=== PATIENT | male | born 1955 | race Two or more races ===

== ENCOUNTER 2022-06-23 11:24 | Emergency (ER) | payer MEDICARE, MEDICAID, SELFPAY | END 2022-06-23 13:08 | disposition left against medical advice (07) | PROVIDERS: Emergency Provider Emergency Medicine; PCP Internal Medicine | DX: L98.9 Disorder of the skin and subcutaneous tissue, unspecified (principal) ==

== ENCOUNTER 2025-05-21 13:40 | Emergency (ER) | payer MEDICARE, MEDICAID, SELFPAY ==
--- NOTE | 2025-05-21 13:43 | ED.GENADULT ---
HPI - General Adult General Chief complaint: Wound/Laceration Stated complaint: laceration Time Seen by Provider: 05/21/25 15:25 Source: patient Mode of arrival: ambulatory Limitations: no limitations History of Present Illness ED Provider: Nusrat Herrera PA-C HPI narrative: Patient is a 70 year old assigned male at with no reported medical history presenting to the emergency department today with a left forehead laceration. Patient states that he accidentally hit the left side of his head on the trim of a door. Patient denies any loss of consciousness. Patient states that he does not know when his last tetanus shot was. Patient states that he is not on any anti-coag medications. Patient denies any dizziness, lightheadedness, abdominal pain, nausea, vomiting, fever, chills, blurry vision, double vision, loss of vision, chest pain, difficulty breathing, shortness of breath, back pain, night sweats, pain with urination, increased urinary frequency, increased urinary urgency, blood in his urine or stool, syncope or a near syncopal episode, bowel incontinence, bladder incontinence, or any other complaints at this time. Relieving factors: none Exacerbating factors: none Associated symptoms: denies other symptoms Treatments prior to arrival: none Related Data Previous Rx's ?Medication ?Instructions ?Recorded amoxicillin 875 mg-potassium 1 tab PO BID 5 days #10 tabs 05/21/25 clavulanate 125 mg tablet Allergies Allergy/AdvReac Type Severity Reaction Status Date / Time No Known Allergies Allergy Verified 05/21/25 13:48 Review of Systems Constitutional: Constitutional: Reports no additional constitutional complaints, Denies chills, Denies fever(s) and Denies night sweats Eyes: Eyes: Reports no additional eye complaints, Denies blurry vision, Denies change in vision, Denies diplopia, Denies eye discharge, Denies loss of vision and Denies eye pain ENT: Denies dizziness Comments: left sided forehead laceration Cardiovascular: Cardiovascular: Reports no additional cardiovascular complaints, Denies chest pain, Denies lightheadedness, Denies Loss of Consciousness and Denies dyspnea Respiratory: Respiratory: Reports no additional respiratory complaints and Denies dyspnea Gastrointestinal: Gastrointestinal: Reports no additional gastrointestinal complaints, Denies abdominal pain, Denies melena, Denies hematochezia, Denies change in bowel habits and Denies change in stool character Genitourinary: Genitourinary: Reports no additional male genitourinary complaints, Denies hematuria, Denies oliguria, Denies difficulty urinating, Denies dysuria, Denies urinary frequency, Denies urinary hesitancy, Denies urinary incontinence and Denies urinary urgency Musculoskeletal: Musculoskeletal: Reports no additional musculoskeletal complaints, Denies numbness and Denies tingling Neurologic: Denies dizziness, Denies loss of vision, Denies numbness and Denies tingling Psychiatric: Psychiatric: Reports no additional psychiatric complaints Endocrine: Endocrine: Reports no additional endocrine complaints Hematologic/Lymphatic: Hematologic/Lymphatic: Reports no additional hematologic/lymphatic complaints Allergic/Immunologic: Allergic/Immunologic: Reports no additional allergic/immunologic complaints [facility] Past Medical History Attestation statement: The following information was validated with the patient. Source: old records reviewed and nursing notes reviewed Social History Social History Advance Directives: No Advance Directives Information Provided: Yes Do you have a plan to hurt others: No Plan Physical Exam ED Vital Signs: Vital Signs - 24 hr 05/21/25 13:44 05/21/25 16:04 05/21/25 16:17 Temperature 97.5 F 97.8 F 97.8 F Pulse Rate 97 78 78 Respiratory Rate 16 20 20 Blood Pressure 154/93 H 149/86 H 149/86 H Pulse Oximetry 96 100 100 Oxygen Delivery Method Room Air Room Air Room Air BMI result Body Mass Index 25.0 Const General: cooperative, no acute distress, alert and awake Nutritional Appearance: well nourished Orientation/consciousness: patient oriented x3 [facility] Other: Ears: hearing grossly normal bilaterally and external ears normal General nose exam: Normal external nose present, no nasal discharge noted and no epistaxis Mouth: Normal oral and palatal mucosa present, no drooling and no muffled voice Eyes General: appearance normal, both eyes and all related structures Periorbital: periorbital findings normal Eyelids: Yes eyelids normal Conjunctivae: conjunctivae normal Pupils: Equal, round and reactive pupils present EOM: EOMs intact bilaterally Neck Neck: Yes normal visual inspection, Yes full ROM and Yes no lymphadenopathy Resp Effort & Inspection: normal respiratory effort and able to speak in complete sentences Neuro General: patient oriented x3, moves all extremities and CN's II-XI intact bilaterally Cranial nerves: Yes Equal, round and reactive pupils present Cognition (Neuro): normal cognition Extrem General: Yes normal to inspection, Yes full ROM and Yes capillary refill normal Psych Appearance: grossly normal Mental Status: mental status grossly normal Affect: normal affect Attitude: cooperative Thought process: Normal thought process present Thought content: Normal thought content present Insight: Good insight present (Psych) Course Course Course Narrative: This is a rapid medical exam performed by Lance Washington NP: Additional HPI, ROS, PE not included below will be deferred to primary provider. Patient is a 70-year-old male presenting with laceration to left upper eyelid. Hit accidentally on door of bulkhead. Denies vision changes. No bony tenderness to orbit. Unsure last Tdap. Plan: Tdap, needs sutures Medications Administered Discontinued Medications Generic Name Dose Route Start Last Admin Trade Name Freq PRN Reason Stop Dose Admin Diphtheria/Tetanus/Acell Pertussis 0.5 ml 05/21/25 13:48 05/21/25 15:25 Diphth,Pertus(Acell),Tet Adult 0.5 Ml Syringe IM 05/21/25 13:49 0.5 ml .ONCE ONE Administration Lidocaine HCl 10 ml 05/21/25 15:27 05/21/25 16:06 Lidocaine Hcl 1 % Mpf 5 Ml Vial SUBCUT 05/21/25 15:28 10 ml ONCE ONE Administration Procedures Laceration Laceration 1: Site: face Side (If applicable): left Description: irregular Depth: simple, single layer Local Anesthetic: lidocaine 1% Amount of anesthesia used (mL): 5 Pre-repair: wound explored and deep structures intact Skin layer closed with: other (prolene) Size (cm): 6-0 Number of sutures: 4 Technique: simple, interrupted Medical Decision Making Medical Decision Making MDM Narrative: Patient is a 70 year old assigned male at with no reported medical history presenting to the emergency department today with a left forehead laceration. Patient's physical exam was as noted in the physical exam portion of this note. I explained my physical exam findings to the patient. I answered all questions asked by the patient. Patient's laceration was repaired, per procedure note, without incident. Patient was brought up to date on his tetanus status. I stressed the importance of the patient taking his medication as directed (either prescribed or as the over the counter packaging recommends). I stressed the importance of the patient following up with his primary care provider. I stressed the importance of the patient returning to the emergency department immediately if his symptoms were to worsen or if he were to develop any dizziness, shortness of breath, difficulty breathing, chest pain, blurry vision, loss of vision, nausea, vomiting, abdominal pain, fever, chills, back pain, or any other complaints. Patient verbalized agreement and understanding with this treatment plan and discharge. Differential Diagnosis Differential Diagnoses: The differential diagnosis associated with the presentation includes Left forehead laceration Admission/Observation Consideration of admission/observation: Escalation of care including admission/observation considered Patient would have been admitted to the hospital had his clinical presentation warranted hospital admission. Tests considered The following testing was considered but not selected: I considered obtaining a CT scan of the patient's head and c-spine however, the patient's current clinical presentation, mechanism of injury, and medical history did not warrant this. Prescription Management I considered prescription management with: Antibiotic (given patient's mechanism of injury - patient was started on a prophylactic antibiotic. ) Discharge Plan Discharge Clinical Impression: Laceration Patient Disposition: Home, Self-Care Instructions: Head Laceration (ED) Additional Instructions: Have your (4) sutures removed in 7-10 days. Do NOT soak the area. Avoid all public bodies of water such as [place], lakes, pools, ponds, oceans, etc. Perform daily wound checks and dressing changes. Quite las (4) suturas en 7 a 10 d?as. NO moje la carla. Evite todo cuerpo de agua p?blico, roland r?os, kristin, piscinas, estanques, oc?anos, etc. Revise la herida y cambie el ap?sito a diario. Follow up with your primary care provider. Return to the emergency department immediately if your symptoms worsen or if you develop any dizziness, shortness of breath, difficulty breathing, chest pain, blurry vision, loss of vision, nausea, vomiting, abdominal pain, fever, chills, back pain, or any other complaints. Shakila?seguimiento?con marshall m?dico de atenci?n primaria. Acuda inmediatamente al servicio de urgencias si viki s?ntomas empeoran o si presenta falta de aliento, dificultad para respirar, dolor tor?cico, mareos, aturdimiento, dolor de espalda, dolor abdominal, fiebre, escalofr?os o cualquier otro s?ntoma. Please see the information below about our Patient Portal. If you are not yet enrolled in the [facility] Patient Portal, you will receive an enrollment email invitation following your visit to any [facility] [place] care setting. You may also self-enroll in the Patient Portal by visiting our website: [email or web address] The following information is required to access the Patient Portal: - Your [facility] [place] Medical Record Number - Your personal home email address (must match what is in your electronic medical record, Registration staff can assist with this) - Name - Date of Capabilities of the Patient Portal: - Message some providers - View upcoming appointments - Access your health summary, medical history, and visit history - View current conditions and allergies - View procedure and lab results - View your medications, including guidelines, side effects, and precautions - Complete pre-appointment questionnaires requested by your provider - Ready summary reports of your office visits and procedures To access the Patient Portal Mobile Alfred, follow these directions: - Search [employer] in the Alfred Store or [employer] Store - Download the Alfred - Search for [facility] - Enter your login/password Portal del paciente Si usted no esta inscrito en el portal de pacientes de [facility], recibira vadim invitacion de inscripcion despues de marshall visita al [facility] [place] o al [facility] via correo electronico. Tambien puede inscribirse voluntariamente en el portal de pacientes visitando nuestra pagina web: [email or web address] La siguiente informacion sera requerida para acceder al portal: - Marshall trudy de historia medica de [facility] [place] - Marshall direccion de correo electronico personal - Nombre - Fecha de nacimiento Capacidades: Las siguientes capacidades estan disponibles en el portal de pacientes: - Enviar mensajes a algunos doctores - Verificar proximas citas - Acceso a marshall historial de dina, registro medico e historial de visitas - Gloria las condiciones actuales y alergias gloria procedimientos y resultados del laboratorio - Gloria viki medicamentos, incluyendo las pautas - Efectos secundarios y precauciones - Completar o llenar formularios / cuestionarios de - Citas solicitadas por marshall doctor - Leer los resumenes de reportes medicos de viki visitas y procedimientos [place] acceder a la aplicacion movil: - [employer] en la Alfred Store o [employer] Store - Descargue la aplicacion - [facility] - Ingrese marshall nombre de usuario / Contrasena Prescriptions: New amoxicillin-pot clavulanate 875-125 mg tablet 1 tab PO BID 5 Days Qty: 10 0RF Referrals: Enrique Diaz III, MD [Primary Care Provider, Medical] Interventions: ED Discharge Assessment Last Done: 05/21/25 16:17 Discharge Date/Time: 05/21/25 16:17 Print Language: Mongolian
[2025-05-21 13:44] VITALS: BP 154/93; PULSE 97; RESP 16; TEMP 36.4; O2SAT 96; BMI 25.0
--- NOTE | 2025-05-21 15:21 | PC.NURSE ---
Pt continues to actively bleed from lac over left eyebrow. Ambulates with steady gait. describes a sore neck but no point tenderness. no neuro deficits noted. denies thinners.
[2025-05-21] MEDS: Diphth,Pertus(ACell),Tet Adult 0.5 ML SYRINGE IM (15:25)
[2025-05-21 16:04] VITALS: BP 149/86; PULSE 78; RESP 20; TEMP 36.6; O2SAT 100
[2025-05-21] MEDS: Lidocaine HCl 1 % MPF 5 ML VIAL 10 ML SUBCUT (16:06)
[2025-05-21 16:17] VITALS: BP 149/86; PULSE 78; RESP 20; TEMP 36.6; O2SAT 100
== END 2025-05-21 16:17 | disposition home or self-care (01) ==
PROVIDERS: Emergency Provider Emergency Medicine; PCP Internal Medicine
DX: S01.81XA Laceration without foreign body of other part of head, initial encounter (principal); W26.9XXA Contact with unspecified sharp object(s), initial encounter; Y93.9 Activity, unspecified; Y92.9 Unspecified place or not applicable; Y99.8 Other external cause status; Z23 Encounter for immunization
CPT/HCPCS: 12011; 90471; 90715; 99282; 99284; J2003

== ENCOUNTER 2025-05-28 05:35 | Emergency (ER) | payer MEDICARE, MEDICAID, SELFPAY ==
[2025-05-28 05:37] VITALS: BP 144/85; PULSE 86; RESP 18; TEMP 36.4; O2SAT 97; BMI 27.4
--- OUTSIDE RECORDS SUMMARY | 2025-05-28 05:57 | XMS_ITS | Clinical Summary ---
Author Organization [address] Address [address] [place] [phone] Phone Care Team Providers Care Rn Sane Name Role Phone Enrique Diaz MD Primary Care Provider [phone] Allergies No known active allergies Medications butalbital-aceta minophen-caffein e-codeine [id number] mg capsule Take by mouth as needed. Active ciclopirox (PENLAC) 8 % solution APPLY TO AFFECTED NAIL DAILY. REMOVE WITH ALCOHOL EVERY 7 DAYS. APPLY FOR 8 WEEKS. 4 Active latanoprost (XALATAN) 0.005 % ophthalmic solution 1 Drop at bedtime. Active melatonin 10 mg tablet Take 5 mg by mouth every evening. 4 Active miconazole (MICATIN) 2 % cream Apply to affected area twice a day for 4 weeks. 2 Active sulindac (CLINORIL) 150 mg tablet TAKE 1 TABLET BY MOUTH TWICE A DAY 4 Active traZODone (DESYREL) 50 mg tablet TAKE 1 TABLET BY MOUTH EVERYDAY AT BEDTIME 4 Active zolpidem (AMBIEN) 10 mg tablet Take by mouth at bedtime as needed. Active hydrocortisone 2.5 % cream Apply 1 Application topically 2 (two) times a day. APPLY TO AFFECTED AREA 30 g 1 5 Active diclofenac (VOLTAREN) 1 % topical gel Apply 2 g topically 4 (four) times a day. 30 g 1 5 Active methocarbamoL (ROBAXIN) 500 mg tabletIndication s:Neck pain,Bilateral shoulder pain, unspecified chronicity Take 1 tablet (500 mg total) by mouth 3 (three) times a day. 40 tablet 5 Active lisinopriL (PRINIVIL,ZESTRI L) 30 mg tablet TAKE 1 TABLET BY MOUTH EVERY DAY 90 tablet 1 5 Active atorvastatin (LIPITOR) 40 mg tablet TAKE 1 TABLET BY MOUTH EVERY DAY 90 tablet 1 5 Active chlorthalidone (HYGROTON) 50 mg tablet TAKE 1 TABLET BY MOUTH EVERY DAY 90 tablet 1 5 Active ibuprofen (ADVIL,MOTRIN) 600 mg tablet Take 1 tablet (600 mg total) by mouth 3 (three) times a day if needed for mild pain. 30 tablet 5 Active acetaminophen (TYLENOL) 500 mg tablet Take 2 tablets (1,000 mg total) by mouth every 6 (six) hours if needed for mild pain. 60 tablet 5 Active triamcinolone (KENALOG) 0.1 % ointment Apply topically 2 (two) times a day. 30 g 3 5 Active Active Problems Problem Noted Date Diagnosed Date Insomnia 01/03/2022 Overview (10/17/2024): Follows with neurology (gentry) 6 mth basis. Tension headache 01/03/2022 Aortic stenosis 10/18/2021 Overview (10/17/2024): Follows with [facility] on a yearly basis. Diverticulosis 03/05/2021 Primary osteoarthritis of both hands 04/13/2018 Primary osteoarthritis of both knees 04/13/2018 Hyperlipidemia 10/24/2016 Venous stasis dermatitis 04/20/2014 Hypospadias 08/12/2013 HTN (hypertension) 03/09/2013 Varicose vein of leg 05/27/2012 BPH (benign prostatic hyperplasia) 12/10/2011 Overweight 02/07/2011 Abnormal brain MRI 03/19/2010 Overview (10/17/2024): Differential diagnosis includes demyelination process inflammatory or postinflammatory state atypical infarct or low-grade neoplasm Backache 04/18/2009 Overview (10/17/2024): IMO update Immunizations Name Administration Dates Next Due Influenza Quadravalent, MDCK , 0.5ml, with preservative (Flucelvax) 6mo and older 09/18/2017 Influenza trivalent, 0.5mL ( Fluad) 65yo and older 08/23/2024,09/09/2023,09/18/2022,07/27,09/26/2019 Influenza trivalent, 0.5mL, preservative free (Fluarix; FluLaval; Fluzone) ages 6mo and older (Afluria) 3 years and older 08/17/2015,08/17/2014,08/12/2013,07/31,11/01/2009,09/18/2007,10/25/2006 Moderna (age 6mo & older) Bi valent, COVID-19, 0.5 mL or 0.25 mL dosage 09/18/2022 Moderna SARS-CoV-2 COVID-19, mRNA, LNP-S, preservative free 09/09/2021,02/02/2021,01/05/2021 Pneumococcal conjugate 13 va lent (Prevnar 13, PCV13) 2mo and older 09/26/2019 Pneumococcal polysaccharide 23 valent (Pneumovax 23) 2yo and older 12/25/2020 Td Tetanus diptheria (Tdvax) 7yo and older 07/27/2020 Tdap Tetanus diptheria acell ular pertussis (Boostrix; Adacel) 7yo and older 06/26/2010 Zoster recombinant (Shingrix ) 19yo and older 05/27/2022 Surgical History Surgery Date Site/Laterality Comments COLONOSCOPY 08/28/2009 PROCEDURE: NM COLONOSCOPY FLX DX W/COLLJ SPEC WHEN PFRMD OTHER SURGICAL HISTORY Left PROCEDURE: NM LIGJ DIVJ & STRIPPING SHORT SAPHENOUS VEIN Medical History Medical History Date Comments 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 DX:Unspecified disorder of l ipoid metabolism Blood in stool 01/09/2006 DX:Blood in stoo l Hypertrophy of prostate with out urinary obstruction and other lower urinary tract symptoms (LUTS) 08/18/2006 DX:Hypertrophy of prosta te without urinary obstruction and other lower urinary tract symptoms (LUTS) Overweight(278.02) 02/07/2011 DX:Overweight (278.02) Unspecified glaucoma(365.9) DX:U nspecified glaucoma(365.9) HTN (hypertension) 03/09/2013 DX:HTN (hyper tension) Inguinal hernia DX:Inguinal cayetano ia; COMMENT: left Family History Medical History Relation Name Comments Other: at 55 abdominal ulcer Father no details No Known Problems Maternal Grandfather No Known Problems Maternal Grandmother Glaucoma Mother Other: at 99 Mother No Known Problems Paternal Grandfather No Known Problems Paternal Grandmother Relation Name Status Comments Father Maternal Grandfather Maternal Grandmother Mother Paternal Grandfather Paternal Grandmother Social History Tobacco Use Types Packs/Day Years Used Date Smoking Tobacco: Never Cigarettes Smokeless Tobacco: Never Tobacco Cessation:Counseling Given: Not Answered Alcohol Use Standard Drinks/Week Comments No 0 (1 standard drink = 0.6 oz pur e alcohol) Sex and Gender Information Value Date Recorded Sex Assigned at Not on file Legal Sex Male 10:46 PM EST Gender Identity Not on file Sexual Orientation Not on file Obstetrics History Last Filed Vital Signs Vital Sign Reading Time Taken Comments Blood Pressure 165/89 12/31/2024 5:55 AM EST Pulse 80 12/31/2024 5:55 AM EST Temperature 36.8 C (98.3 F) 12/31/2024 5:55 AM EST Respiratory Rate 17 12/31/2024 5:55 AM EST Oxygen Saturation 99% 12/31/2024 5:55 AM EST Inhaled Oxygen Concentration - - Weight 72.6 kg (160 lb) 12/31/2024 5:55 AM EST Height 167.6 cm (5' 6 ) 12/31/2024 5:55 AM EST Body Mass Index 25.82 12/31/2024 5:55 AM EST Plan of Treatment Upcoming Encounters Date Type Department Care Team (Late st Contact Info) Description 06/29/2025 1:15 PM EDT Office Visit Adult Medicine [address] [phone] Enrique Diaz MD [address] [place] [phone] Health Maintenance Due Date Last Done Comments Falls Risk Assessment 10/24/2022 Medicare Annual Wellness Visit 10/24/2022 Social Influencers of Health Screening 10/24/2022 COVID-19 Vaccine ( season) 2024 09/18/2022, 04/02/2022, 09/09/2021, Additional history exists Depression Screening 06/16/2025 06/16/2024 Influenza Vaccine (#1) 2025 , 09/09/2023, 09/18/2022, Additional history exists Hypertension/CHF/CAD Annual BMP Blood Test 12/19/2025 12/19/2024, 06/16/2024, 06/16/2024 RSV Immunization Adult Patients (1 - 1-dose 75+ series) 2028 Colorectal Cancer Screening: Colonoscopy 12/06/2029 12/06/2019 Cholesterol Screening (Lipid Panel) 12/19/2029 12/19/2024, 06/16/2024, 06/16/2024 DTaP,Tdap,and Td Vaccines (3 - Td or Tdap) 07/27/2030 07/27/2020, 06/26/2010 Hepatitis C Screening Completed 12/31/2013 Pneumococcal Vaccine: 50+ Years Completed 12/25/2020, 09/26/2019 Zoster Vaccines Completed 04/17/2023, 05/27/2022 HIB Vaccines Aged Out No longer eligi ble based on patient's age to complete this topic HPV Vaccines Aged Out No longer eligi ble based on patient's age to complete this topic Hepatitis A Vaccines Aged Out No long er eligible based on patient's age to complete this topic Hepatitis B Vaccines Aged Out No long er eligible based on patient's age to complete this topic IPV Vaccines Aged Out No longer eligi ble based on patient's age to complete this topic MMR Vaccines Aged Out No longer eligi ble based on patient's age to complete this topic Meningococcal ACWY Vaccine Aged Out N o longer eligible based on patient's age to complete this topic Meningococcal B Vaccine Aged Out No l onger eligible based on patient's age to complete this topic RSV Immunization Patients Under 20 months Aged Out No longer eligible based on patient's age to complete this topic Varicella Vaccines Aged Out No longer eligible based on patient's age to complete this topic Procedures Procedure Name Priority Date/Time Associated Diagnosis Comments COMPREHENSIVE METABOLIC PANEL Routine 12/19/2024 2:15 PM EST Primary hypertension Encounter for long-term (current) use of medications LIPID PANEL WITH REFLEX TO DIRECT LDL Routine 12/19/2024 2:15 PM EST Pure hypercholesterolemia DEPRESSION SCREENING Routine 06/16/2024 COLONOSCOPY Routine 12/06/2019 HEPATITIS C SCREENING Routine 12/31/2013 from Last 3 Months or Most Recently Relevant to Health Maintenance Results * (ABNORMAL) Lipid panel with reflex to direct LDL (12/19/2024 2:15 PM EST) Cholesterol 227(H) 0 - 200 mg/dL LAB CHEMISTRY METHOD 12/19/2024 6:03 PM [facility] Triglycerides 167(H) 0 - 150 mg/dL LAB CHEMISTRY METHOD 12/19/2024 6:03 PM [facility] HDL 47 >=40 mg/dL LAB CHEMISTRY METHOD 12/19/2024 6:03 PM [facility] LDL Calculated 147(H) 0 - 100 mg/dL LAB CHEMISTRY METHOD 12/19/2024 6:03 PM [facility] VLDL Cholesterol Fam 33.4 mg/dL LAB CHEMISTRY METHOD 12/19/2024 6:03 PM [facility] Non HDL Chol. (LDL+VLDL) 180(H) <145 mg/dL LAB CHEMISTRY METHOD 12/19/2024 6:03 PM [facility] Chol/HDL Ratio 4.8(H) 0.0 - 4.4 LAB CHEMISTRY METHOD 12/19/2024 6:03 PM [facility] Blood Venous blood specimen / Unknown Venipuncture / Unknown 12/19/2024 2:15 PM EST 12/19/2024 2:15 PM EST us Enrique Diaz MD LAB BLOOD ORDERABLES Final Resu lt [facility] [address] [place] [address], * Comprehensive metabolic panel (12/19/2024 2:15 PM EST) Sodium 133 133 - 145 mmol/L LAB CHEMISTRY METHOD 12/19/2024 6:03 PM [facility] Potassium 3.8 3.5 - 5.5 mmol/L LAB CHEMISTRY METHOD 12/19/2024 6:03 PM [facility] Chloride 96 96 - 110 mmol/L LAB CHEMISTRY METHOD 12/19/2024 6:03 PM [facility] CO2 31 21 - 32 mmol/L LAB CHEMISTRY METHOD 12/19/2024 6:03 PM [facility] Anion Gap 6 3 - 11 LAB CHEMISTRY METHOD 12/19/2024 6:03 PM [facility] Glucose 89 70 - 100 mg/dL LAB CHEMISTRY METHOD 12/19/2024 6:03 PM [facility] BUN 19 5 - 25 mg/dL LAB CHEMISTRY METHOD 12/19/2024 6:03 PM [facility] Creatinine 1.15 0.70 - 1.30 mg/dL LAB CHEMISTRY METHOD 12/19/2024 6:03 PM [facility] eGFR 68 >=60 mL/min/1. 73m2 LAB CHEMISTRY METHOD 12/19/2024 6:03 PM [facility] Comment:Calculation based on the Chronic Kidney Disease Epidemiology Collaboration (CKD-EPI) equation refit without adjustment for race. BUN/Creatinine Ratio 16.5 LAB CHEMISTRY METHOD 12/19/2024 6:03 PM [facility] Calcium 10.0 8.5 - 10.5 mg/dL LAB CHEMISTRY METHOD 12/19/2024 6:03 PM [facility] AST (SGOT) 17 10 - 42 unit/L LAB CHEMISTRY METHOD 12/19/2024 6:03 PM [facility] ALT (SGPT) 20 10 - 60 unit/L LAB CHEMISTRY METHOD 12/19/2024 6:03 PM [facility] Alkaline Phosphatase 88 42 - 121 unit/L LAB CHEMISTRY METHOD 12/19/2024 6:03 PM [facility] Total Protein 7.4 6.0 - 8.0 g/dL LAB CHEMISTRY METHOD 12/19/2024 6:03 PM [facility] Albumin 4.2 3.2 - 5.0 g/dL LAB CHEMISTRY METHOD 12/19/2024 6:03 PM [facility] Total Bilirubin 0.4 0.0 - 1.4 mg/dL LAB CHEMISTRY METHOD 12/19/2024 6:03 PM [facility] Blood Venous blood specimen / Unknown Venipuncture / Unknown 12/19/2024 2:15 PM EST 12/19/2024 2:15 PM EST Enrique Diaz MD LAB BLOOD ORDERABLES Final Resu lt [facility] [address] [place] [address], * Depression Screening (06/16/2024) Depression Screening Abstracted Historical Provider HEALTH MAINTENANCE Final Result * Colonoscopy (12/06/2019) Colonoscopy Abstracted, no interpretation Anatomical Region Laterality Modality Other Historical Provider HEALTH MAINTENANCE Final Result * Hepatitis C Screening (12/31/2013) Hepatitis C Screening Abstracted us Historical Provider HEALTH MAINTENANCE Final Result from Last 3 Months or Most Recently Relevant to Health Maintenance Insurance MEDICAID - [place] MEDICARE Care Teams Rn Sane Relationship Specialty Start Date End Date Enrique Diaz MD [address] [place] [phone] PCP - General Internal Medicine 09/28/15
--- OUTSIDE RECORDS SUMMARY | 2025-05-28 05:57 | XMS_ITS | Encounter Summary ---
Author Organization [employer] [facility] Address [address] [place] [address] Care Team Providers Care Advanced Practice Provider Name Role Phone Unavailable Primary Care Provider Unavailabl e Encounter Details Date Type Department Care Team (Latest Contact Info) Description 05/16/2019 Abstract C CONVERSIONS Dental, Provider, DDS Social History Tobacco Use Types Packs/Day Years Used Date Smoking Tobacco: Never Assessed Sex and Gender Information Value Date Recorded Sex Assigned at Male 09/15/2022 10:20 AM EDT Legal Sex Male 10:20 AM EDT Gender Identity Male 09/15/2022 10:20 AM EDT Sexual Orientation Choose not to disclose 2021 10:20 AM EDT documented as of this encounter Plan of Treatment Not on file documented as of this encounter Visit Diagnoses Not on filedocumented in this encounter
--- OUTSIDE RECORDS SUMMARY | 2025-05-28 05:57 | XMS_ITS | Clinical Summary ---
Author Organization [facility] Address [address] [place] [address] Care Team Providers Care Bench Scientist Name Role Phone Enrique Diaz MD Primary Care Provider [phone] Allergies No known active allergies Medications Medication Sig Dispensed Refills Start Date End Date Status atorvastatin (LIPITOR) tablet 40 mg Take 40 mg by mouth daily. 0 Active clotrimazole (LOTRIMIN) 1 % cream Apply topically 2 (two) times a day. 0 Active clotrimazole-betame thasone (LOTRISONE) cream Apply topically 2 (two) times a day. 0 Active latanoprost (XALATAN) 0.005 % ophthalmic solution 1 drop every night at bedtime. 0 Active betamethasone acetate-betamethaso ne sodium phosphate (CELESTONE) 6 (3-3) MG/ML injection Inject into the muscle. 0 Active chlorthalidone (HYGROTON) 50 MG tablet Take 50 mg by mouth daily. 0 Active zolpidem (AMBIEN) 5 MG tablet Take 10 mg by mouth every night at bedtime as needed for sleep. 0 Active ibuprofen 200 MG tablet Take by mouth every 6 (six) hours as needed for pain. 0 Active pregabalin (LYRICA) 25 MG capsule TAKE 1 CAPSULE BY MOUTH THREE TIMES A DAY 90 capsule 0 05/20/2022 Active Family History Relation Name Status Comments Father faater dies at age 55 from abdominal ulcer Mother cataract taruno ma Social History Tobacco Use Types Packs/Day Years Used Date Smoking Tobacco: Never Smokeless Tobacco: Never Alcohol Use Standard Drinks/Week Comments Not Currently 0 (1 standard drink = 0.6 oz pur e alcohol) Sex and Gender Information Value Date Recorded Sex Assigned at Not on file Gender Identity Not on file Sexual Orientation Not on file Job Start Date Occupation Industry Not on file Not on file Not on file Last Filed Vital Signs Vital Sign Reading Time Taken Comments Blood Pressure 138/70 03/04/2022 9:55 AM EDT Pulse 75 03/04/2022 9:55 AM EDT Temperature 35.9 C (96.6 F) 03/04/2022 9:55 AM EDT Respiratory Rate - - Oxygen Saturation 98% 03/04/2022 9:55 AM EDT Inhaled Oxygen Concentration - - Weight 73.5 kg (162 lb) 02/28/2022 3:14 PM EDT Height 162.6 cm (5' 4 ) 02/28/2022 3:14 PM EDT Body Mass Index 27.81 02/28/2022 3:14 PM EDT Plan of Treatment Health Maintenance Due Date Last Done Comments Hepatitis C Screening 1953 Depression Screening 1965 Preventative Health Evaluation 1971 Colon Cancer Screening (Colonoscopy) 1998 Shingrix-Zoster Vaccine (1 of 2) 2003 Fall Risk Assessment 2018 DTap / Tdap / Td (2 - Td or Tdap) 06/26/2020 06/26/2010 COVID-19 Vaccine ( season) 2024 09/09/2021, 02/02/2021, 01/05/2021 Influenza Vaccine (#1) 2025 , 09/26/2019, 09/18/2017, Additional history exists RSV Adult > 60+ Yrs or (1 - 1-dose 75+ series) 2028 Pneumococcal Vaccine Completed 12/25/2020, 09/26/20 19 Hepatitis B Vaccines Aged Out No long er eligible based on patient's age to complete this topic RSV Ped < 20 months Aged Out No longe r eligible based on patient's age to complete this topic Care Teams Bench Scientist Relationship Specialty Start Date End Date Enrique Diaz MD PCP - General Internal Medicine 01/29/22
--- OUTSIDE RECORDS SUMMARY | 2025-05-28 05:57 | XMS_ITS ---
Author Name [facility] Organization Unknown Encounters Encounter Type Encounter Reason Primary Diagnosis Location Date Ambulatory [facility] 08/26/2024 Care Team Organization Name Specialty Phone Email Start Date End Da te [facility] 2024
--- NOTE | 2025-05-28 06:38 | PC.NURSE ---
Patient reports he is here for sutures removal from the left upper eye lid. 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 Patient denies any pain at present. Patient oriented to ED room, call ramirez placed within patient's reach.
--- NOTE | 2025-05-28 08:04 | ED.GENADULT ---
HPI - General Adult General Chief complaint: General Medical Stated complaint: needs sutures removed Time Seen by Provider: 05/28/25 07:58 Source: patient, RN notes reviewed and diplomatic interpreter Mode of arrival: ambulatory Limitations: language barrier History of Present Illness ED Provider: Meg Fuentes PA-C [facility] narrative: This is a 70-year-old male who presents emergency department for suture removal. Patient was seen here on May 21, 2025 after accidentally lacerating above his left eye. He states that he tolerated the sutures well without any complications or concerns. He took the antibiotics as prescribed, finish the entire course. No drainage. No fevers or chills. No other complaints or concerns at this time. MD complaint: Suture removal Relieving factors: none Exacerbating factors: none Associated symptoms: denies other symptoms Treatments prior to arrival: none Related Data Previous Rx's ?Medication ?Instructions ?Recorded amoxicillin 875 mg-potassium 1 tab PO BID 5 days #10 tabs 05/21/25 clavulanate 125 mg tablet Allergies Allergy/AdvReac Type Severity Reaction Status Date / Time No Known Allergies Allergy Verified 05/28/25 05:38 Review of Systems Review of Systems: Yes all other systems are reviewed and are negative Constitutional: Constitutional: Reports as per [facility] Social History Social History Alcohol intake: former Smoked in Last 30 Days: No Use of substances other than those prescribed or required for medical reasons: No Advance Directives: No Advance Directives Information Provided: Yes Do you have a plan to hurt others: No Plan Physical Exam ED Vital Signs: Vital Signs - 24 hr 05/28/25 05:37 05/28/25 08:41 Temperature 97.6 F 97.6 F Pulse Rate 86 86 Respiratory Rate 18 18 Blood Pressure 144/85 H 144/85 H Pulse Oximetry 97 97 Oxygen Delivery Method Room Air Room Air BMI result Body Mass Index 27.4 Const Other: General: Awake, alert, and oriented X3. No acute distress. HEENT: Normal inspection CVS: Normal heart rate and rhythm. Pulses normal. Respiratory: No respiratory distress Skin: Left upper eye brow with well-healed laceration, [address], no evidence of wound dehiscence, drainage or surrounding erythema. Extremities: Normal to inspection Neuro: Oriented X 3. No motor deficit. No sensory deficit. Medical Decision Making Medical Decision Making [facility] Narrative: This is a 70-year-old male who presents emergency department for suture removal. On arrival, patient's blood pressure elevated at 140 4/85, all other vital signs within normal limits. He is speaking in full sentences under no acute distress. No evidence of wound dehiscence or cellulitis. Four sutures were removed successfully, no complications or concerns. Given wound care instructions, patient stable for discharge Differential Diagnosis Differential Diagnoses: The differential diagnosis associated with the presentation includes Suture removal, wound dehiscence, cellulitis, wound check Discharge Plan Discharge Clinical Impression: Visit for suture removal Patient Disposition: Home, Self-Care Instructions: Stitches Removal (ED) Additional Instructions: You were seen in the emergency department for a suture removal. You had 4 sutures removed successfully without any complications or concerns. Please keep area clean and dry, do not pick at wound, watch for any signs of infection including but not limited to redness, fevers, drainage. If any of these occur, please return. You may wash gently with warm soap and water. Prescriptions: No Action amoxicillin-pot clavulanate 875-125 mg tablet 1 tab PO BID 5 Days Qty: 10 0RF Interventions: ED Discharge Assessment Last Done: 05/28/25 08:41 Print Language: Swazi
[2025-05-28 08:41] VITALS: BP 144/85; PULSE 86; RESP 18; TEMP 36.4; O2SAT 97
== END 2025-05-28 08:43 | disposition home or self-care (01) ==
PROVIDERS: Emergency Provider Emergency Medicine
DX: Z48.02 Encounter for removal of sutures (principal)
CPT/HCPCS: 99284

== ENCOUNTER 2025-06-12 11:03 | Emergency (ER) | payer MEDICARE, MEDICAID, SELFPAY ==
--- NOTE | ~2025-06-12 | XR_ITS ---
EXAMINATION: XR FINGER, LEFT CLINICAL INFORMATION: laceration distal 2nd finger COMPARISON: None available. TECHNIQUE: AP hand and oblique and lateral views of the left hand second digit. FINDINGS: There is soft tissue swelling involving the distal end of the second digit. There is laceration visible in the distal end of the finger tip, palmar to the nailbed. There is oblique lucency traversing the tuft and extending to the dorsal metaphysis with offset of the tuft consistent with a fracture. Single image of the hand shows borderline widening of the scapholunate interval. XR/XR finger LT min 2V IMPRESSION: There is an acute fracture of the distal phalanx of the second digit. Scapholunate ligament tear. Electronically signed by: Kevin Burton MD 06/12/2025 12:47 PM EDT
--- NOTE | 2025-06-12 12:26 | ED.GENADULT ---
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 Patient was using an electric saw to cut wood. He reports that he accidentally cut his left index finger. He also reports that he recently had a tetanus booster on 05/21/2025 when he was here for a facial laceration. He is not anticoagulated He has moderate pain to the area He is able to bend his finger Related Data Previous Rx's ?Medication ?Instructions ?Recorded amoxicillin 875 mg-potassium 1 tab PO BID 5 days #10 tabs 05/21/25 clavulanate 125 mg tablet cephalexin 500 mg capsule 500 mg PO Q8H #15 caps 06/12/25 Allergies Allergy/AdvReac Type Severity Reaction Status Date / Time No Known Allergies Allergy Verified 06/12/25 12:30 Review of Systems Constitutional: Constitutional: Denies body ache(s), Denies chills and Denies fever(s) Integumentary/Breasts: Skin/Breast: Reports wounds PMFSH Social History Social History Alcohol intake: former Smoked in Last 30 Days: No Use of substances other than those prescribed or required for medical reasons: No Any prior treatment program specific to substance use: No Advance Directives: No Advance Directives Information Provided: Yes Physical Exam ED Vital Signs: Vital Signs - 24 hr 06/12/25 12:28 Temperature 97.8 F Pulse Rate 98 Respiratory Rate 18 Blood Pressure 218/115 H Pulse Oximetry 98 Oxygen Delivery Method Room Air BMI result Body Mass Index 27.5 Const General: healthy appearing, comfortable, no acute distress, alert and awake Nutritional Appearance: well nourished [facility] Head: Yes normocephalic and Yes atraumatic Resp Effort & Inspection: normal respiratory effort, able to speak in complete sentences and not labored Skin Other: Patient has an approximately 5 cm laceration extending from the radial side of the left index finger distal to the D IP joint over the fingertip and then down along the ulnar side of the finger. No active bleeding. The patient is able to flex and extend at the PIP and D IP joints. General skin exam: elasticity normal Neuro Cranial nerves: Yes CN's II-XII intact bilaterally and Yes Bilaterally intact EOM present Cognition (Neuro): normal cognition Course Course Course Narrative: This is a rapid medical exam performed by Lance Washington NP: Additional HPI, ROS, PE not included below will be deferred to primary provider. 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 Reports pain and numbness/tingling. Lac to lateral aspect of distal tip of finger not involving nail. Tdap UTD. Plan: xray, will need sutures Reevaluation(s) Reevaluation #1: Laceration repair performed by PA studentAntwon under my direct supervision. Wound was cleaned postprocedure, dressed and placed in a finger splint due to the fracture Time: 17:09 Medications Administered Discontinued Medications Generic Name Dose Route Start Last Admin Trade Name Eleazar PRN Reason Stop Dose Admin Lidocaine HCl 10 ml 06/12/25 15:14 06/12/25 15:50 Lidocaine Hcl 1 % 20 Ml Vial INFILTRATI 06/12/25 15:15 10 ml ONCE ONE Administration Oxycodone HCl 5 mg 06/12/25 14:39 06/12/25 15:49 Oxycodone Hcl Immed Release 5 Mg Tablet PO 06/12/25 14:40 5 mg ONCE ONE Administration Procedures Laceration Laceration 1: Site: hand (Index finger) Side (If applicable): left Size (cm): 5 Description: linear and irregular Depth: simple, single layer Local Anesthetic: lidocaine 1% Amount of anesthesia used (mL): 6 (Digital block) Pre-repair: wound explored, irrigated extensively and deep structures intact Skin layer closed with: nylon Size (cm): 4-0 Number of sutures: 10 Technique: simple, interrupted Medical Decision Making Medical Decision Making MDM Narrative: 70-year-old male presents for evaluation of a laceration caused by an electric saw. X-ray confirms a distal phalanx fracture. Plan to cleaned and closed the wound, see procedure note. Given the fracture and open wound we will start the patient on antibiotics for prophylaxis. He will be referred to hand surgery for follow-up Differential Diagnosis Differential Diagnoses: The differential diagnosis associated with the presentation includes Laceration Skin tear Puncture wound Finger fracture Open fracture Independent Interpretation I performed an independent interpretation of an: Plain X-Ray (Agree with Radiology interpretation, left 2nd distal phalanx fracture) Radiology Impression Discussion of test interpretation with radiology: I have reviewed the radiologist's reading. Radiologist Impression: FINDINGS: There is soft tissue swelling involving the distal end of the second digit. There is laceration visible in the distal end of the finger tip, palmar to the nailbed. There is oblique lucency traversing the tuft and extending to the dorsal metaphysis with offset of the tuft consistent with a fracture. Single image of the hand shows borderline widening of the scapholunate interval. XR/XR finger LT min 2V IMPRESSION: There is an acute fracture of the distal phalanx of the second digit. Scapholunate ligament tear. Electronically signed by: Kevin Burton MD 06/12/2025 12:47 PM EDT RP Discharge Plan Discharge Clinical Impression: Laceration, Fracture of distal phalanx of finger Patient Disposition: Home, Self-Care Instructions: Laceration (ED), Finger Fracture (ED) Additional Instructions: You had a laceration that was closed with 10 stitches These can be removed in 14 days There is also a subtle fracture to the tip of the finger. You should keep the splint in place throughout the day Keep the area clean and dry but you may apply topical antibiotic Take cephalexin 3 times daily for 5 days to prevent infection Follow-up with your primary doctor, you may follow up with hand surgery if you have any issues Prescriptions: New cephalexin 500 mg capsule 500 mg PO Q8H Qty: 15 0RF No Action amoxicillin-pot clavulanate 875-125 mg tablet 1 tab PO BID 5 Days Qty: 10 0RF Referrals: Arielle Escoto MD [Physician, Hand Surgery] Referral Note: finger fracture left 2nd with laceration Print Language: Lao
[2025-06-12 12:28] VITALS: BP 218/115; PULSE 98; RESP 18; TEMP 36.6; O2SAT 98; BMI 27.5
--- OUTSIDE RECORDS SUMMARY | 2025-06-12 15:17 | XMS_ITS | Clinical Summary ---
Author Organization [facility] Address [address] [place] [address] Care Team Providers Care Ballet Professor Name Role Phone Enrique Diaz MD Primary Care Provider [phone] Allergies No known active allergies Medications Medication [...] age to complete this topic Care Teams Ballet Professor Relationship Specialty Start Date End Date Enrique Diaz MD PCP - General Internal Medicine 01/29/22
--- OUTSIDE RECORDS SUMMARY | 2025-06-12 15:17 | XMS_ITS | Encounter Summary ---
Author Organization [employer] [facility] Address [address] [place] [address] Care Team Providers Care Wind Energy Project Manager Name Role Phone Unavailable Primary Care Provider [...]
--- OUTSIDE RECORDS SUMMARY | 2025-06-12 15:17 | XMS_ITS | Encounter Summary ---
Author Organization [facility] Address [address] [place] [address] Care Team Providers Care Quality Assurance Lab Technician Name Role Phone Enrique Diaz MD Primary Care Provider [phone] Encounter Details Date Type Department Care Team Description 01/27/2018 Manager House Report Medical Records [address] [place] [address] Milton Zavala MD Social History Tobacco Use Types Packs/Day Years Used Date Smoking Tobacco: Never Cigarettes 1 Smokeless Tobacco: Never Alcohol Use Standard Drinks/Week Comments No 0 (1 standard drink = 0.6 oz pur e alcohol) Sex Assigned at Date Recorded Not on file Job Start Date Occupation Industry Not on file Not on file Not on file documented as of this encounter Plan of Treatment Not on file documented as of this encounter Visit Diagnoses Not on filedocumented in this encounter Care Teams Quality Assurance Lab Technician Relationship Specialty Start Date End Date Enrique Diaz MD [address] [place], [place] [id number] PCP - General Internal Medicine 09/28/15 documented as of this encounter
--- OUTSIDE RECORDS SUMMARY | 2025-06-12 15:17 | XMS_ITS | Clinical Summary ---
Author Organization [address] Address [address] [place] [phone] Phone Care Team Providers Care Instrument Setter Name Role Phone Enrique Diaz MD Primary Care Provider [phone] Allergies No known active allergies Medications butalbital-aceta minophen-caffein e-codeine 70-168-42-30 mg capsule Take by mouth as needed. [...] Aortic stenosis 10/18/2021 Overview (10/17/2024): Follows with [facility] on a yearly [...] Surgery Date Site/Laterality Comments COLONOSCOPY 08/28/2009 PROCEDURE: VT COLONOSCOPY FLX DX W/COLLJ SPEC WHEN PFRMD OTHER SURGICAL HISTORY Left PROCEDURE: VT LIGJ DIVJ & STRIPPING SHORT SAPHENOUS VEIN [...] 1:15 PM EDT Office Visit Adult Medicine [address] [phone] Enrique Diaz MD [address] [place] [phone] Health Maintenance Due Date Last Done Comments Falls Risk Assessment 10/24/2022 Medicare Annual Wellness Visit 10/24/2022 Social Influencers of Health Screening 10/24/2022 COVID-19 Vaccine ( season) 2024 09/18/2022, 04/02/2022, 09/09/2021, Additional history exists Depression Screening 11/16/2024 06/16/2024 Influenza Vaccine (#1) 2025 , 09/09/2023, [...] mg/dL LAB CHEMISTRY METHOD 12/19/2024 6:03 PM [facility] Triglycerides 167(H) 0 - 150 mg/dL LAB CHEMISTRY METHOD 12/19/2024 6:03 PM [facility] HDL 47 >=40 mg/dL LAB CHEMISTRY METHOD 12/19/2024 6:03 PM [facility] LDL Calculated 147(H) 0 - 100 mg/dL LAB CHEMISTRY METHOD 12/19/2024 6:03 PM [facility] VLDL Cholesterol Fam 33.4 mg/dL LAB CHEMISTRY METHOD 12/19/2024 6:03 PM [facility] Non HDL Chol. (LDL+VLDL) 180(H) <145 mg/dL LAB CHEMISTRY METHOD 12/19/2024 6:03 PM [facility] Chol/HDL Ratio 4.8(H) 0.0 - 4.4 LAB CHEMISTRY METHOD 12/19/2024 6:03 PM [facility] Blood Venous blood specimen / Unknown Venipuncture / Unknown 12/19/2024 2:15 PM EST 12/19/2024 2:15 PM EST us Enrique Diaz MD LAB BLOOD ORDERABLES Final Resu lt [facility] [address] [place] [address], * Comprehensive metabolic panel (12/19/2024 2:15 PM EST) Sodium 133 133 - 145 mmol/L LAB CHEMISTRY METHOD 12/19/2024 6:03 PM [facility] Potassium 3.8 3.5 - 5.5 mmol/L LAB CHEMISTRY METHOD 12/19/2024 6:03 PM [facility] Chloride 96 96 - 110 mmol/L LAB CHEMISTRY METHOD 12/19/2024 6:03 PM [facility] CO2 31 21 - 32 mmol/L LAB CHEMISTRY METHOD 12/19/2024 6:03 PM [facility] Anion Gap 6 3 - 11 LAB CHEMISTRY METHOD 12/19/2024 6:03 PM [facility] Glucose 89 70 - 100 mg/dL LAB CHEMISTRY METHOD 12/19/2024 6:03 PM [facility] BUN 19 5 - 25 mg/dL LAB CHEMISTRY METHOD 12/19/2024 6:03 PM [facility] Creatinine 1.15 0.70 - 1.30 mg/dL LAB CHEMISTRY METHOD 12/19/2024 6:03 PM [facility] eGFR 68 >=60 mL/min/1. 73m2 LAB CHEMISTRY METHOD 12/19/2024 6:03 PM [facility] Comment:Calculation based on the Chronic Kidney Disease Epidemiology Collaboration (CKD-EPI) equation refit without adjustment for race. BUN/Creatinine Ratio 16.5 LAB CHEMISTRY METHOD 12/19/2024 6:03 PM [facility] Calcium 10.0 8.5 - 10.5 mg/dL LAB CHEMISTRY METHOD 12/19/2024 6:03 PM [facility] AST (SGOT) 17 10 - 42 unit/L LAB CHEMISTRY METHOD 12/19/2024 6:03 PM [facility] ALT (SGPT) 20 10 - 60 unit/L LAB CHEMISTRY METHOD 12/19/2024 6:03 PM [facility] Alkaline Phosphatase 88 42 - 121 unit/L LAB CHEMISTRY METHOD 12/19/2024 6:03 PM [facility] Total Protein 7.4 6.0 - 8.0 g/dL LAB CHEMISTRY METHOD 12/19/2024 6:03 PM [facility] Albumin 4.2 3.2 - 5.0 g/dL LAB CHEMISTRY METHOD 12/19/2024 6:03 PM [facility] Total Bilirubin 0.4 0.0 - 1.4 mg/dL LAB CHEMISTRY METHOD 12/19/2024 6:03 PM [facility] Blood Venous blood specimen / Unknown Venipuncture / Unknown 12/19/2024 2:15 PM EST 12/19/2024 2:15 PM EST Enrique Diaz MD LAB BLOOD ORDERABLES Final Resu lt [facility] [address] [place] [address], * Depression Screening (06/16/2024) Depression Screening Abstracted [...] Insurance MEDICAID - [place] MEDICARE Care Teams Instrument Setter Relationship Specialty Start Date End Date Enrique Diaz MD [address] [place] [phone] PCP - General Internal Medicine 09/28/15
[2025-06-12] MEDS: oxyCODONE HCl Immed Release 5 MG TABLET PO (15:49)
[2025-06-12] MEDS: Lidocaine HCl 1 % 20 ML VIAL 10 ML INFILTRATI (15:50)
[2025-06-12 17:28] VITALS: BP 168/82; PULSE 82; RESP 16; TEMP 36.5; O2SAT 95
[2025-06-12 17:49] VITALS: BP 168/82; PULSE 82; RESP 16; TEMP 36.5; O2SAT 95
== END 2025-06-12 18:27 | disposition home or self-care (01) ==
PROVIDERS: Emergency Provider Emergency Medicine; PCP Internal Medicine
DX: S62.631B Displaced fracture of distal phalanx of left index finger, initial encounter for open fracture (principal); S61.311A Laceration without foreign body of left index finger with damage to nail, initial encounter; W29.3XXA Contact with powered garden and outdoor hand tools and machinery, initial encounter; M79.645 Pain in left finger(s); Y93.89 Activity, other specified; Y92.007 Garden or yard of unspecified non-institutional (private) residence as the place of occurrence of the external cause; Y99.9 Unspecified external cause status
CPT/HCPCS: 12002; 29130; 73140; 99284; J2003

== ENCOUNTER → 2025-06-12 12:30 | Outpatient (BNV) | payer MEDICARE, MEDICAID, SELFPAY | PROVIDERS: PCP Internal Medicine; Visit Provider Radiology Diagnostic Radiology | DX: S62.631A Displaced fracture of distal phalanx of left index finger, initial encounter for closed fracture (principal) | CPT/HCPCS: 73140 ==

== ENCOUNTER 2025-06-15 10:34 | Emergency (ER) | payer MEDICARE, MEDICAID, SELFPAY ==
[2025-06-15 10:37] VITALS: BP 155/80; PULSE 99; RESP 17; TEMP 37.1; O2SAT 97; BMI 27.5
--- NOTE | 2025-06-15 11:43 | ED_ITS ---
HPI - General Adult General Chief complaint: Skin/Abscess/Foreign Body Stated complaint: Issues w/ sitches Time Seen by Provider: 06/15/25 11:43 Source: patient Mode of arrival: ambulatory Limitations: no limitations History of Present Illness ED Provider: Nusrat Herrera PA-C HPI narrative: Patient is a 70 year old assigned male at with a no reported medical history presenting to the emergency department today with a left index finger laceration. Patient states that he was using a saw on 06/12/2025 and lacerating / breaking his left index finger. Patient states that he had stitches placed then and this morning he woke up and discovered 1 suture fell out and he was having some minimal bleeding from the area. Patient states that he is taking his antibiotic as directed. Patient denies any dizziness, lightheadedness, abdominal pain, nausea, vomiting, fever, chills, blurry vision, double vision, loss of vision, chest pain, difficulty breathing, shortness of breath, back pain, night sweats, pain with urination, increased urinary frequency, increased urinary urgency, blood in his urine or stool, syncope or a near syncopal episode, bowel incontinence, bladder incontinence, or any other complaints at this time. Relieving factors: none Exacerbating factors: none Associated symptoms: denies other symptoms Related Data Previous Rx's ?Medication ?Instructions ?Recorded amoxicillin 875 mg-potassium 1 tab PO BID 5 days #10 t abs 05/21/25 clavulanate 125 mg tablet cephalexin 500 mg capsule 500 mg PO Q8H #15 caps 06/12 Allergies Allergy/AdvReac Type Severity Reaction Status Date / Time No Known Allergies Allergy Verified 06/15/25 10:45 Review of Systems 2 Constitutional: Constitutional: Reports no additional constitutional complaints, Denies chills, Denies fever(s) and Denies night sweats Eyes: Eyes: Reports no additional eye complaints, Denies blurry vision, Denies change in vision, Denies diplopia, Denies eye discharge, Denies loss of vision and Denies eye pain ENT: Denies dizziness Cardiovascular: Cardiovascular: Reports no additional cardiovascular complaints, Denies chest pain, Denies lightheadedness, Denies Loss of Consciousness and Denies dyspnea Respiratory: Respiratory: Reports no additional respiratory complaints and Denies dyspnea Gastrointestinal: Gastrointestinal: Reports no additional gastrointestinal complaints, Denies abdominal pain, Denies melena, Denies hematochezia, Denies change in bowel habits and Denies change in stool character Genitourinary: Genitourinary: Reports no additional male genitourinary complaints, Denies hematuria, Denies oliguria, Denies difficulty urinating, Denies dysuria, Denies urinary frequency, Denies urinary hesitancy, Denies urinary incontinence and Denies urinary urgency Musculoskeletal: Musculoskeletal: Reports no additional musculoskeletal complaints, Denies numbness and Denies tingling Comments: Left index finger laceration - sutures in place Neurologic: Denies dizziness, Denies loss of vision, Denies numbness and Denies tingling Psychiatric: Psychiatric: Reports no additional psychiatric complaints Endocrine: Endocrine: Reports no additional endocrine complaints Hematologic/Lymphatic: Hematologic/Lymphatic: Reports no additional hematologic/lymphatic complaints Allergic/Immunologic: Allergic/Immunologic: Reports no additional allergic/immunologic complaints PMFSH Past Medical History Attestation statement: The following information was validated with the patient. Source: old records reviewed and nursing notes reviewed Social History Social History Alcohol intake: former Advance Directives: No Advance Directives Information Provided: Yes Do you have a plan to hurt others: No Plan Physical Exam ED Vital Signs: Vital Signs - 24 hr 06/15/25 10:37 Temperature 98.7 F Pulse Rate 99 Respiratory Rate 17 Blood Pressure 155/80 H Pulse Oximetry 97 Oxygen Delivery Method Room Air BMI result Body Mass Index 27.5 Const General: cooperative, no acute distress, alert and awake Nutritional Appearance: well nourished Orientation/consciousness: patient oriented x3 HENMT Head: Yes normal to inspection and Yes atraumatic Ears: hearing grossly normal bilaterally and external ears normal General nose exam: Normal external nose present, no nasal discharge noted and no epistaxis Face and sinus: Yes normal facial exam, No abrasion and No laceration Mouth: Normal oral and palatal mucosa present, no drooling and no muffled voice Eyes General: appearance normal, both eyes and all related structures Periorbital: periorbital findings normal Eyelids: Yes eyelids normal Conjunctivae: conjunctivae normal Pupils: Equal, round and reactive pupils present EOM: EOMs intact bilaterally Neck Neck: Yes normal visual inspection, Yes full ROM and Yes no lymphadenopathy Resp Effort & Inspection: normal respiratory effort and able to speak in complete sentences Neuro General: patient oriented x3, moves all extremities and CN's II-XI intact bilaterally Cranial nerves: Yes Equal, round and reactive pupils present Cognition (Neuro): normal cognition Extrem Other: General: Yes full ROM and Yes capillary refill normal Psych Appearance: grossly normal Mental Status: mental status grossly normal Affect: normal affect Attitude: cooperative Thought process: Normal thought process present Thought content: Normal thought content present Insight: Good insight present (Psych) Medical Decision Making Medical Decision Making MDM Narrative: Patient is a 70 year old assigned male at with a no reported medical history presenting to the emergency department today with a left index finger laceration. Patient's physical exam was as noted in the physical exam portion of this note. Patient's finger is not actively bleeding and the wound edges are still appropriately approximated. No erythema, no pain with palpation, no drainage present. I explained my physical exam findings to the patient. I answered all questions asked by the patient. I stressed the importance of the patient taking his medication as directed (either prescribed or as the over the counter packaging recommends). I stressed the importance of the patient following up with his primary care provider and the orthopedic team as directed. I stressed the importance of the patient returning to the emergency department immediately if his symptoms were to worsen or if he were to develop any dizziness, shortness of breath, difficulty breathing, chest pain, blurry vision, loss of vision, nausea, vomiting, abdominal pain, fever, chills, back pain, or any other complaints. Patient verbalized agreement and understanding with this treatment plan and discharge. Differential Diagnosis Differential Diagnoses: The differential diagnosis associated with the presentation includes Left index finger sutures Well healing left index finger wound Admission/Observation Consideration of admission/observation: Escalation of care including admission/observation considered Patient would have been admitted to the hospital had his clinical presentation warranted hospital admission. Prescription Management I considered prescription management with: Antibiotic (Patient already prescribed antibiotic - advised to continue taking it. ) Discharge Plan Discharge Clinical Impression: Wound dehiscence Patient Disposition: Home, Self-Care Instructions: Care For Your Stitches (DC) Additional Instructions: Your wound and sutures both look appropriate / good. There is no evidence of infection however, you should continue your previously prescribed antibiotics. Please follow up with the orthopedic team as directed. Tanto la herida roland las suturas se sonia april. No hay evidencia de infecci?n; sin embargo, debe continuar con los antibi?ticos que le recetaron previamente. Por favor, consulte con el equipo de ortopedia seg?n las indicaciones. Follow up with your primary care provider. Return to the emergency department immediately if your symptoms worsen or if you develop any dizziness, shortness of breath, difficulty breathing, chest pain, blurry vision, loss of vision, nausea, vomiting, abdominal pain, fever, chills, back pain, or any other complaints. Shakila?seguimiento?con marshall m?dico de atenci?n primaria. Acuda inmediatamente al servicio de urgencias si viki s?ntomas empeoran o si presenta falta de aliento, dificultad para respirar, dolor tor?cico, mareos, aturdimiento, dolor de espalda, dolor abdominal, fiebre, escalofr?os o cualquier otro s?ntoma. Please see the information below about our Patient Portal. If you are not yet enrolled in the [facility] Patient Portal, you will receive an enrollment email invitation following your visit to any [facility] care setting. You may also self-enroll in the Patient Portal by visiting our website: [email or web address] The following information is required to access the Patient Portal: - Your [facility] Medical Record Number - Your personal home email address (must match what is in your electronic medical record, Registration staff can assist with this) - Name - Date of Capabilities of the Patient Portal: - Message some providers - View upcoming appointments - Access your health summary, medical history, and visit history - View current conditions and allergies - View procedure and lab results - View your medications, including guidelines, side effects, and precautions - Complete pre-appointment questionnaires requested by your provider - Ready summary reports of your office visits and procedures To access the Patient Portal Mobile Alfred, follow these directions: - Search [employer] in the Alfred Store or Google Last Guide Store - Download the Alfred - Search for [facility] - Enter your login/password Portal del paciente Si usted no esta inscrito en el portal de pacientes de [facility] y [facility], recibira vadim invitacion de inscripcion despues de marshall visita al [facility] o al [facility] via correo electronico. Tambien puede inscribirse voluntariamente en el portal de pacientes visitando nuestra pagina web: [email or web address] La siguiente informacion sera requerida para acceder al portal: - Marshall trudy de historia medica de [facility] - Marshall direccion de correo electronico personal - Nombre - Fecha de nacimiento Capacidades: Las siguientes capacidades estan disponibles en el portal de pacientes: - Enviar mensajes a algunos doctores - Verificar proximas citas - Acceso a mrashall historial de dina, registro medico e historial de visitas - Gloria las condiciones actuales y alergias gloria procedimientos y resultados del laboratorio - Gloria viki medicamentos, incluyendo las pautas - Efectos secundarios y precauciones - Completar o llenar formularios / cuestionarios de - Citas solicitadas por marshall doctor - Leer los resumenes de reportes medicos de ivki visitas y procedimientos Lusk acceder a la aplicacion movil: - Busque [employer] en la Alfred Store o Cold[employer]ark Store - Descargue la aplicacion - Busque [facility] - Ingrese marshall nombre de usuario / Contrasena Prescriptions: No Action cephalexin 500 mg capsule 500 mg PO Q8H Qty: 15 0RF amoxicillin-pot clavulanate 875-125 mg tablet 1 tab PO BID 5 Days Qty: 10 0RF Referrals: Enrique Diaz III, MD [Primary Care Provider, Medical] Print Language: French
[2025-06-15 12:22] VITALS: BP 155/80; PULSE 99; RESP 17; TEMP 37.1; O2SAT 97
--- OUTSIDE RECORDS SUMMARY | 2025-06-15 12:33 | XMS_ITS | Clinical Summary ---
Author Organization [address] Address [address] [place] [phone] Phone Care Team Providers Care Meat Washer Name Role Phone Enrique Diaz MD Primary Care Provider [phone] Allergies No known active allergies Medications butalbital-aceta minophen-caffein e-codeine 05-600-26-30 mg capsule Take by mouth as needed. [...] Aortic stenosis 10/18/2021 Overview (10/17/2024): Follows with [facility] on a yearly basis. Diverticulosis [...] Surgery Date Site/Laterality Comments COLONOSCOPY 08/28/2009 PROCEDURE: MO COLONOSCOPY FLX DX W/COLLJ SPEC WHEN PFRMD OTHER SURGICAL HISTORY Left PROCEDURE: MO LIGJ DIVJ & STRIPPING SHORT SAPHENOUS VEIN [...] 1:15 PM EDT Office Visit Adult Medicine [address] [phone] Enrique Diaz MD [address] [place] [phone] Health Maintenance Due Date Last Done Comments [...] mg/dL LAB CHEMISTRY METHOD 12/19/2024 6:03 PM [facility] Triglycerides 167(H) 0 - 150 mg/dL LAB CHEMISTRY METHOD 12/19/2024 6:03 PM [facility] HDL 47 >=40 mg/dL LAB CHEMISTRY METHOD 12/19/2024 6:03 PM [facility] LDL Calculated 147(H) 0 - 100 mg/dL LAB CHEMISTRY METHOD 12/19/2024 6:03 PM [facility] VLDL Cholesterol Fam 33.4 mg/dL LAB CHEMISTRY METHOD 12/19/2024 6:03 PM [facility] Non HDL Chol. (LDL+VLDL) 180(H) <145 mg/dL LAB CHEMISTRY METHOD 12/19/2024 6:03 PM [facility] Chol/HDL Ratio 4.8(H) 0.0 - 4.4 LAB CHEMISTRY METHOD 12/19/2024 6:03 PM [facility] Blood Venous blood specimen / Unknown Venipuncture / Unknown 12/19/2024 2:15 PM EST 12/19/2024 2:15 PM EST us Enrique Diaz MD LAB BLOOD ORDERABLES Final Resu lt [facility] [address] [place] [address], * Comprehensive metabolic panel (12/19/2024 2:15 PM EST) Sodium 133 133 - 145 mmol/L LAB CHEMISTRY METHOD 12/19/2024 6:03 PM [facility] Potassium 3.8 3.5 - 5.5 mmol/L LAB CHEMISTRY METHOD 12/19/2024 6:03 PM [facility] Chloride 96 96 - 110 mmol/L LAB CHEMISTRY METHOD 12/19/2024 6:03 PM [facility] CO2 31 21 - 32 mmol/L LAB CHEMISTRY METHOD 12/19/2024 6:03 PM [facility] Anion Gap 6 3 - 11 LAB CHEMISTRY METHOD 12/19/2024 6:03 PM [facility] Glucose 89 70 - 100 mg/dL LAB CHEMISTRY METHOD 12/19/2024 6:03 PM [facility] BUN 19 5 - 25 mg/dL LAB CHEMISTRY METHOD 12/19/2024 6:03 PM [facility] Creatinine 1.15 0.70 - 1.30 mg/dL LAB CHEMISTRY METHOD 12/19/2024 6:03 PM [facility] eGFR 68 >=60 mL/min/1. 73m2 LAB CHEMISTRY METHOD 12/19/2024 6:03 PM [facility] Comment:Calculation based on the Chronic Kidney Disease Epidemiology Collaboration (CKD-EPI) equation refit without adjustment for race. BUN/Creatinine Ratio 16.5 LAB CHEMISTRY METHOD 12/19/2024 6:03 PM [facility] Calcium 10.0 8.5 - 10.5 mg/dL LAB CHEMISTRY METHOD 12/19/2024 6:03 PM [facility] AST (SGOT) 17 10 - 42 unit/L LAB CHEMISTRY METHOD 12/19/2024 6:03 PM [facility] ALT (SGPT) 20 10 - 60 unit/L LAB CHEMISTRY METHOD 12/19/2024 6:03 PM [facility] Alkaline Phosphatase 88 42 - 121 unit/L LAB CHEMISTRY METHOD 12/19/2024 6:03 PM [facility] Total Protein 7.4 6.0 - 8.0 g/dL LAB CHEMISTRY METHOD 12/19/2024 6:03 PM [facility] Albumin 4.2 3.2 - 5.0 g/dL LAB CHEMISTRY METHOD 12/19/2024 6:03 PM [facility] Total Bilirubin 0.4 0.0 - 1.4 mg/dL LAB CHEMISTRY METHOD 12/19/2024 6:03 PM [facility] Blood Venous blood specimen / Unknown Venipuncture / Unknown 12/19/2024 2:15 PM EST 12/19/2024 2:15 PM EST Enrique Diaz MD LAB BLOOD ORDERABLES Final Resu lt [facility] [address] [place] [address], * Depression Screening (06/16/2024) Depression Screening Abstracted [...] Insurance MEDICAID - [place] MEDICARE Care Teams Meat Washer Relationship Specialty Start Date End Date Enrique Diaz MD [address] [place] [phone] PCP - General Internal Medicine 09/28/15
--- OUTSIDE RECORDS SUMMARY | 2025-06-15 12:33 | XMS_ITS | Encounter Summary ---
Author Organization [employer] [facility] Address [address] [place] [address] Care Team Providers Care Cook Helper Juice Name Role Phone Unavailable Primary Care Provider [...]
--- OUTSIDE RECORDS SUMMARY | 2025-06-15 12:34 | XMS_ITS | Clinical Summary ---
Author Organization [facility] Address [address] [place] [address] Care Team Providers Care Pool Hall Inspector Name Role Phone Enrique Diaz MD Primary Care Provider [phone] Allergies No known active allergies Medications Medication [...] age to complete this topic Care Teams Pool Hall Inspector Relationship Specialty Start Date End Date Enrique Diaz MD PCP - General Internal Medicine 01/29/22
== END 2025-06-15 12:23 | disposition home or self-care (01) ==
LOC: HO.ED 12:05
PROVIDERS: Emergency Provider Emergency Medicine Emergency Medical Services; PCP Internal Medicine
DX: M79.642 Pain in left hand (principal); T81.30XA Disruption of wound, unspecified, initial encounter; Y83.8 Other surgical procedures as the cause of abnormal reaction of the patient, or of later complication, without mention of misadventure at the time of the procedure; Y92.89 Other specified places as the place of occurrence of the external cause
CPT/HCPCS: 99282

== ENCOUNTER 2025-06-16 10:02 | Outpatient (REF) | payer MEDICARE, MEDICAID, SELFPAY ==
--- NOTE | ~2025-06-16 | XR_ITS ---
EXAMINATION: XR HAND, LEFT CLINICAL INFORMATION: M79.642 - Pain in left hand COMPARISON: X-ray left fingers 06/04/2025. TECHNIQUE: PA, lateral, and oblique views of the left hand. FINDINGS: Stable fracture involving the distal phalanx of the second digit. Slightly less prominent overlying soft tissue laceration of the tip of the second digit. Similar soft tissue swelling of the second digit. Remainder the bones of the hand appear intact. Joint spaces are largely preserved. Carpal bones are intact and normally aligned. XR/XR hand LT min 3V IMPRESSION: Similar appearing linear fracture of the distal phalanx of the second digit with overlying soft tissue laceration. Electronically signed by: Bennett Victor MD 06/16/2025 11:41 AM EDT
--- OUTSIDE RECORDS SUMMARY | 2025-06-16 10:11 | XMS_ITS | Clinical Summary ---
Author Organization [address] Address [address] [place] [phone] Phone Care Team Providers Care Oil Field Roustabout Name Role Phone Enrique Diaz MD Primary Care Provider [phone] Allergies No known active allergies Medications butalbital-aceta minophen-caffein e-codeine 74-940-90-30 mg capsule Take by mouth as needed. [...] Aortic stenosis 10/18/2021 Overview (10/17/2024): Follows with [facility] on a yearly [...] Surgery Date Site/Laterality Comments COLONOSCOPY 08/28/2009 PROCEDURE: CT COLONOSCOPY FLX DX W/COLLJ SPEC WHEN PFRMD OTHER SURGICAL HISTORY Left PROCEDURE: CT LIGJ DIVJ & STRIPPING SHORT SAPHENOUS VEIN [...] 1:15 PM EDT Office Visit Adult Medicine [address] [phone] Enrique Diaz MD [address] [place] [phone] Health Maintenance Due Date Last Done Comments [...] mg/dL LAB CHEMISTRY METHOD 12/19/2024 6:[address] [facility] Triglycerides 167(H) 0 - 150 mg/dL LAB CHEMISTRY METHOD 12/19/2024 6:[address] [facility] HDL 47 >=40 mg/dL LAB CHEMISTRY METHOD 12/19/2024 6:[address] [facility] LDL Calculated 147(H) 0 - 100 mg/dL LAB CHEMISTRY METHOD 12/19/2024 6:[address] [facility] VLDL Cholesterol Fam 33.4 mg/dL LAB CHEMISTRY METHOD 12/19/2024 6:[address] [facility] Non HDL Chol. (LDL+VLDL) 180(H) <145 mg/dL LAB CHEMISTRY METHOD 12/19/2024 6:[address] [facility] Chol/HDL Ratio 4.8(H) 0.0 - 4.4 LAB CHEMISTRY METHOD 12/19/2024 6:[address] [facility] Blood Venous blood specimen / Unknown Venipuncture / Unknown 12/19/2024 2:15 PM EST 12/19/2024 2:15 PM EST us Enrique Diaz MD LAB BLOOD ORDERABLES Final Resu lt [facility] [address] [place] [address], * Comprehensive metabolic panel (12/19/2024 2:15 PM EST) Sodium 133 133 - 145 mmol/L LAB CHEMISTRY METHOD 12/19/2024 6:[address] [facility] Potassium 3.8 3.5 - 5.5 mmol/L LAB CHEMISTRY METHOD 12/19/2024 6:[address] [facility] Chloride 96 96 - 110 mmol/L LAB CHEMISTRY METHOD 12/19/2024 6:[address] [facility] CO2 31 21 - 32 mmol/L LAB CHEMISTRY METHOD 12/19/2024 6:[address] [facility] Anion Gap 6 3 - 11 LAB CHEMISTRY METHOD 12/19/2024 6:[address] [facility] Glucose 89 70 - 100 mg/dL LAB CHEMISTRY METHOD 12/19/2024 6:[address] [facility] BUN 19 5 - 25 mg/dL LAB CHEMISTRY METHOD 12/19/2024 6:[address] [facility] Creatinine 1.15 0.70 - 1.30 mg/dL LAB CHEMISTRY METHOD 12/19/2024 6:[address] [facility] eGFR 68 >=60 mL/min/1. 73m2 LAB CHEMISTRY METHOD 12/19/2024 6:[address] [facility] Comment:Calculation based on the Chronic Kidney Disease Epidemiology Collaboration (CKD-EPI) equation refit without adjustment for race. BUN/Creatinine Ratio 16.5 LAB CHEMISTRY METHOD 12/19/2024 6:[address] [facility] Calcium 10.0 8.5 - 10.5 mg/dL LAB CHEMISTRY METHOD 12/19/2024 6:[address] [facility] AST (SGOT) 17 10 - 42 unit/L LAB CHEMISTRY METHOD 12/19/2024 6:[address] [facility] ALT (SGPT) 20 10 - 60 unit/L LAB CHEMISTRY METHOD 12/19/2024 6:[address] [facility] Alkaline Phosphatase 88 42 - 121 unit/L LAB CHEMISTRY METHOD 12/19/2024 6:[address] [facility] Total Protein 7.4 6.0 - 8.0 g/dL LAB CHEMISTRY METHOD 12/19/2024 6:[address] [facility] Albumin 4.2 3.2 - 5.0 g/dL LAB CHEMISTRY METHOD 12/19/2024 6:[address] [facility] Total Bilirubin 0.4 0.0 - 1.4 mg/dL LAB CHEMISTRY METHOD 12/19/2024 6:[address] [facility] Blood Venous blood specimen / Unknown Venipuncture / Unknown 12/19/2024 2:15 PM EST 12/19/2024 2:15 PM EST Enrique Diaz MD LAB BLOOD ORDERABLES Final Resu lt [facility] [address] [place] [address], * Depression Screening (06/16/2024) Depression Screening Abstracted [...] Insurance [place] - [place]ARE Care Teams Oil Field Roustabout Relationship Specialty Start Date End Date Enrique Diaz MD [address] [place] [phone] PCP - General Internal Medicine 09/28/15
--- OUTSIDE RECORDS SUMMARY | 2025-06-16 10:11 | XMS_ITS | Clinical Summary ---
Author Organization [facility] Address [address] [place] [address] Care Team Providers Care Fibreglass Lay Up Worker Name Role Phone Enrique Diaz MD Primary Care Provider [phone] Allergies No known active allergies Medications Medication [...] age to complete this topic Care Teams Fibreglass Lay Up Worker Relationship Specialty Start Date End Date Enrique Diaz MD PCP - General Internal Medicine 01/29/22
--- OUTSIDE RECORDS SUMMARY | 2025-06-16 10:11 | XMS_ITS | Encounter Summary ---
Author Organization [employer] [facility] Address [address] [place] [address] Care Team Providers Care Java J2Ee Software Engineer Name Role Phone Unavailable Primary Care Provider [...]
== END 2025-06-16 10:03 | disposition home or self-care (01) ==
LOC: HO.HOSX 10:02
DX: S62.661B Nondisplaced fracture of distal phalanx of left index finger, initial encounter for open fracture (principal); R20.0 Anesthesia of skin; M79.642 Pain in left hand; Z79.899 Other long term (current) drug therapy; W13.2XXA Fall from, out of or through roof, initial encounter
CPT/HCPCS: 73130; 99202

== ENCOUNTER → 2025-06-16 10:36 | Outpatient (BNV) | payer MEDICARE, MEDICAID, SELFPAY | PROVIDERS: Visit Provider Radiology Diagnostic Radiology | DX: M79.642 Pain in left hand (principal) | CPT/HCPCS: 73130 ==

== ENCOUNTER 2025-06-16 10:41 | Outpatient (AMB) | payer MEDICARE, MEDICAID, SELFPAY ==
[2025-06-16 10:53] VITALS: BMI 27.5
--- NOTE | 2025-06-16 10:53 | A.OFFVIS_ITS ---
Vital Signs 06/16/25 10:53 Height 5 ft 4 in Weight 160 lb BMI 27.5 Intake Visit Reasons: ED/FC-LT Index finger LAC, DOI: 06/12/25 Intake Note: Juan Daniel is a 70 year old right hand dominant male who presents today for an ED follow up status post left index finger laceration and left index distal phalanx fracture, DOI: 06/12/25. Patient presented to the ED after cutting his finger using an electric saw. Patient received a tetanus booster on 05/21/2025 after he was treated for a facial laceration. Patient [place] [facility] [place] on 06/15/25 with concerns of re-opening of his laceration. Patient was re-assured his incision looks good and he should continue taking antibiotics as prescribed. Today, patient complains of numbness and a pulling sensation at the DIP. He is taking Tylenol with some relief. Denies previous fractures to the left hand. Customer Advocate Required: Yes Customer Advocate Language: Carpet Yarn Winder Operator Services: Customer Advocate Present Customer Advocate Name: JEAN-PIERRE Francisco/IVETT Allergies No Known Allergies Allergy (Verified 06/20/25 11:52) [facility] ED/FC-LT Index finger LAC, DOI: 06/12/25: Details: Juan Daniel is a 70 year old right hand dominant male who presents today for an ED follow up status post left index finger laceration and left index distal phalanx fracture, DOI: 06/12/25. Patient presented to the ED after cutting his finger using an electric saw. Patient received a tetanus booster on 05/21/2025 after he was treated for a facial laceration. Patient presented to [facility] [place] on 06/15/25 with concerns of re-opening of his laceration. Patient was re-assured his incision looks good and he should continue taking antibiotics as prescribed. Today, patient complains of numbness and a pulling sensation at the DIP. He is taking Tylenol with some relief. Denies previous fractures to the left hand. [facility] Social History (Updated 06/16/25 @ 10:58 by JEAN-PIERRE Ricketts) Alcohol intake: former Patient Tobacco Use Status: Never used Tobacco Current occupation: rt handed Review of Systems Const All systems reviewed & are unremarkable except as noted in HPI and below Physical Exam Vital Signs: BMI result Body Mass Index 27.5 Extrem Other: Patient is alert, oriented, and in no acute distress. Neuro: Normal sensation of the tips of all digits of the left hand at this time Vascular: Cap refill brisk Pain: Mild tenderness to palpation about distal phalanx of left index finger ROM: Patient is able to flex and extend all digits of the left hand without difficulty Skin: Complex laceration noted of the distal phalanx of the left index finger No evidence of surrounding erythema or discharge General: No ecchymosis, erythema, or evidence of infection. Psych: Appears grossly normal Affect normal Attitude cooperative Office Procedures AMB Fracture Care Fracture Billing Code: Fracture Billing Code Results Reviewed Results Reviewed: X-rays obtained in the office today and independently reviewed by me, Len Gonzalez PA-C, demonstrate nondisplaced fracture of the distal phalanx of the left index finger. Assessment & Plan Assessment & Plan (1) Open fracture of phalanx of left index finger: Code(s): S62.601B - Fracture of unspecified phalanx of left index finger, initial encounter for open fracture Category: Medical Plan 1. Open fracture of the left index finger Date of injury 06/12/2025 Patient appears to be recovering well from his injury Patient is educated about the typical recovery course Patient should keep dressing intact, clean, dry until follow-up No washing Switch antibiotics from cephalexin to Augmentin Splint in place at all times Sutures not removed today Patient is amenable to this plan Follow-up in 1 week for wound check, sooner with any acute concerns Medications: New amoxicillin-pot clavulanate 875-125 mg 1 tab PO BID 20 tabs 0RF 10 days Discontinued amoxicillin-pot clavulanate 875-125 mg Discontinued Reason: Patient Completed Course 1 tab PO BID 5 days 10 tabs 0RF cephalexin Discontinued Reason: Ancillary Entered New Order 500 mg PO Q8H 15 caps 0RF Coding Level of Care Code New Pt Level 3 (95804) Diagnoses Open fracture of phalanx of left index finger S62.601B CPT Codes Fracture Care - Fracture Billing Code: Fracture Billing Code ([id number])
== END 2025-06-16 11:34 | disposition home or self-care (01) ==
LOC: HO.HOS 10:41
PROVIDERS: PCP Internal Medicine
DX: S62.601B Fracture of unspecified phalanx of left index finger, initial encounter for open fracture (principal)
CPT/HCPCS: 99203

== ENCOUNTER 2025-06-20 11:33 | Outpatient (AMB) | payer MEDICARE, MEDICAID, SELFPAY ==
[2025-06-20 11:48] VITALS: BMI 27.5
--- NOTE | 2025-06-20 11:48 | MHC.OFFVIS ---
Vital Signs 06/20/25 11:48 Height 5 ft 4 in Weight 160 lb BMI 27.5 Intake Visit Reasons: OV-LT Index finger LAC, DOI: 06/12/25 w/ xray Intake Note: Juan Daniel is a 70 year old right hand dominant male who presents today for follow up status post left index finger laceration and left index distal phalanx fracture, DOI: 06/12/25. Patient reports constant pain in the DIP of the left index finger. He complains of numbness in the middle, ring, and small finger. He is still taking the antibiotic as well as Tylenol, with minimal relief. Senior Accountant Analyst Required: Yes Senior Accountant Analyst Language: Direct Casting Operator Name: JEAN-PIERRE Francisco LM Allergies No Known Allergies Allergy (Verified 06/20/25 11:52) HPI HPI OV-LT Index finger LAC, DOI: 06/12/25 w/ xray: Details: Juan Daniel is a 70 year old right hand dominant male who presents today for follow up status post left index finger laceration and left index distal phalanx fracture, DOI: 06/12/25. Patient reports pain in the DIP of the left index finger, and that this has improved slightly since previous evaluation.. He complains of numbness in the middle, ring, and small finger. He is still taking the antibiotic as well as Tylenol, with minimal relief. [facility] Social History (Updated 06/16/25 @ 10:58 by JEAN-PIERRE Ricketts) Alcohol intake: former Patient Tobacco Use Status: Never used Tobacco Current occupation: rt handed Review of Systems Const All systems reviewed & are unremarkable except as noted in HPI and below Physical Exam Vital Signs: BMI result Body Mass Index 27.5 Extrem Other: Patient is alert, oriented, and in no acute distress. Neuro: Normal sensation of the tips of all digits of the left hand at this time Vascular: Cap refill brisk Pain: Mild tenderness to palpation about distal phalanx of left index finger ROM: Patient is able to flex and extend all digits of the left hand without difficulty Skin: Complex laceration noted of the distal phalanx of the left index finger No evidence of surrounding erythema or discharge General: No ecchymosis, erythema, or evidence of infection. Psych: Appears grossly normal Affect normal Attitude cooperative Assessment & Plan Assessment & Plan (1) Open fracture of phalanx of left index finger: Code(s): S62.601B - Fracture of unspecified phalanx of left index finger, initial encounter for open fracture Category: Medical Plan 1. Open fracture of the left index finger Date of injury 06/12/2025 Patient appears to be recovering well from his injury Patient is educated about the typical recovery course Patient may begin washing laceration under soap and water in the sink of the shower No submerging Patient should be in splint whenever he is not washing the laceration site Daily dressing changes Anticipate suture removal next week Patient is amenable to this plan Follow-up in 1 week for suture removal, sooner with any acute concerns Coding Level of Care Code Global (63180) Diagnoses Open fracture of phalanx of left index finger S62.601B
--- OUTSIDE RECORDS SUMMARY | 2025-06-20 12:26 | XMS_ITS | Encounter Summary ---
Author Organization [employer] [facility] Address [address] [place] [address] Care Team Providers Care Law Firm Administrator Name Role Phone Unavailable Primary Care Provider [...]
--- OUTSIDE RECORDS SUMMARY | 2025-06-20 12:26 | XMS_ITS | Clinical Summary ---
Author Organization [address] Address [address] [place] [phone] Phone Care Team Providers Care Paint Laboratory Technician Name Role Phone Enrique Diaz MD Primary Care Provider Allergies No known active allergies Medications butalbital-aceta minophen-caffein e-codeine 85-963-82-30 mg capsule Take by mouth as needed. [...] Surgery Date Site/Laterality Comments COLONOSCOPY 08/28/2009 PROCEDURE: [place] COLONOSCOPY FLX DX W/COLLJ SPEC WHEN PFRMD OTHER SURGICAL HISTORY Left PROCEDURE: [place] LIGJ DIVJ & STRIPPING SHORT SAPHENOUS VEIN [...] 1:15 PM EDT Office Visit Adult Medicine [address] [phone] Enrique Diaz MD [address] [place] [phone] Health Maintenance Due Date Last Done Comments [...] mg/dL LAB CHEMISTRY METHOD 12/19/2024 6:03 PM [facility] Triglycerides 167(H) 0 - 150 mg/dL LAB CHEMISTRY METHOD 12/19/2024 6:03 PM [facility] HDL 47 >=40 mg/dL LAB CHEMISTRY METHOD 12/19/2024 6:03 PM [facility] LDL Calculated 147(H) 0 - 100 mg/dL LAB CHEMISTRY METHOD 12/19/2024 6:03 PM [facility] VLDL Cholesterol Fam 33.4 mg/dL LAB CHEMISTRY METHOD 12/19/2024 6:03 PM [facility] Non HDL Chol. (LDL+VLDL) 180(H) <145 mg/dL LAB CHEMISTRY METHOD 12/19/2024 6:03 PM [facility] Chol/HDL Ratio 4.8(H) 0.0 - 4.4 LAB CHEMISTRY METHOD 12/19/2024 6:03 PM [facility] Blood Venous blood specimen / Unknown Venipuncture / Unknown 12/19/2024 2:15 PM EST 12/19/2024 2:15 PM EST us Enrique Diaz MD LAB BLOOD ORDERABLES Final Resu lt [facility] [address] [place] [address], * Comprehensive metabolic panel (12/19/2024 2:15 PM EST) Sodium 133 133 - 145 mmol/L LAB CHEMISTRY METHOD 12/19/2024 6:03 PM [facility] Potassium 3.8 3.5 - 5.5 mmol/L LAB CHEMISTRY METHOD 12/19/2024 6:03 PM [facility] Chloride 96 96 - 110 mmol/L LAB CHEMISTRY METHOD 12/19/2024 6:03 PM [facility] CO2 31 21 - 32 mmol/L LAB CHEMISTRY METHOD 12/19/2024 6:03 PM [facility] Anion Gap 6 3 - 11 LAB CHEMISTRY METHOD 12/19/2024 6:03 PM [facility] Glucose 89 70 - 100 mg/dL LAB CHEMISTRY METHOD 12/19/2024 6:03 PM [facility] BUN 19 5 - 25 mg/dL LAB CHEMISTRY METHOD 12/19/2024 6:03 PM [facility] Creatinine 1.15 0.70 - 1.30 mg/dL LAB CHEMISTRY METHOD 12/19/2024 6:03 PM [facility] eGFR 68 >=60 mL/min/1. 73m2 LAB CHEMISTRY METHOD 12/19/2024 6:03 PM [facility] Comment:Calculation based on the Chronic Kidney Disease Epidemiology Collaboration (CKD-EPI) equation refit without adjustment for race. BUN/Creatinine Ratio 16.5 LAB CHEMISTRY METHOD 12/19/2024 6:03 PM [facility] Calcium 10.0 8.5 - 10.5 mg/dL LAB CHEMISTRY METHOD 12/19/2024 6:03 PM [facility] AST (SGOT) 17 10 - 42 unit/L LAB CHEMISTRY METHOD 12/19/2024 6:03 PM [facility] ALT (SGPT) 20 10 - 60 unit/L LAB CHEMISTRY METHOD 12/19/2024 6:03 PM [facility] Alkaline Phosphatase 88 42 - 121 unit/L LAB CHEMISTRY METHOD 12/19/2024 6:03 PM [facility] Total Protein 7.4 6.0 - 8.0 g/dL LAB CHEMISTRY METHOD 12/19/2024 6:03 PM [facility] Albumin 4.2 3.2 - 5.0 g/dL LAB CHEMISTRY METHOD 12/19/2024 6:03 PM [facility] Total Bilirubin 0.4 0.0 - 1.4 mg/dL LAB CHEMISTRY METHOD 12/19/2024 6:03 PM [facility] Blood Venous blood specimen / Unknown Venipuncture / Unknown 12/19/2024 2:15 PM EST 12/19/2024 2:15 PM EST Enrique Diaz MD LAB BLOOD ORDERABLES Final Resu lt [facility] [address] [place] [address], * Depression Screening (06/16/2024) Depression Screening Abstracted [...] Insurance [place]ICA[place] - [place] MEDICARE Care Teams Paint Laboratory Technician Relationship Specialty Start Date End Date Enrique Diaz MD [address] [place] [phone] PCP - General Internal Medicine 09/28/15
--- OUTSIDE RECORDS SUMMARY | 2025-06-20 12:26 | XMS_ITS | Clinical Summary ---
Author Organization [facility] Address [address] [place] [address] Care Team Providers Care Senior Consumer Insights Consultant Name Role Phone Enrique Diaz MD Primary Care Provider [phone] Allergies No known active allergies Medications Medication [...] age to complete this topic Care Teams Senior Consumer Insights Consultant Relationship Specialty Start Date End Date Enrique Diaz MD PCP - General Internal Medicine 01/29/22
== END 2025-06-20 12:26 | disposition home or self-care (01) ==
LOC: HO.HOS 11:33
PROVIDERS: PCP Internal Medicine
DX: S62.601B Fracture of unspecified phalanx of left index finger, initial encounter for open fracture (principal)
CPT/HCPCS: 99213

== ENCOUNTER → 2025-06-20 11:33 | Outpatient (BNVA) | payer MEDICARE, MEDICAID, SELFPAY | PROVIDERS: PCP Internal Medicine | DX: S62.601D Fracture of unspecified phalanx of left index finger, subsequent encounter for fracture with routine healing (principal) | CPT/HCPCS: 99212 ==

== ENCOUNTER 2025-06-27 11:37 | Outpatient (AMB) | payer MEDICARE, MEDICAID, SELFPAY ==
[2025-06-27 11:39] VITALS: BMI 27.5
--- NOTE | 2025-06-27 11:39 | A.OFFVIS_ITS ---
Vital Signs 06/27/25 11:39 Height 5 ft 4 in Weight 160 lb BMI 27.5 Intake Visit Reasons: OV-LT Index finger LAC, DOI: 06/12/25 w/ xray Intake Note: Juan Daniel is a 70 year old right hand dominant male who presents today for a wound check and suture removal status post left index finger laceration and left index distal phalanx fracture, DOI: 06/12/25. At his last visit he was advised he could begin washing laceration under soap and water in the sink or the shower. He was reminded to not submerge his hand under water. Patient was instructed to use splint whenever not washing the laceration site and to change his dressings daily. Patient reports today he has changed dressing as advised. He also finished his antibiotics today. No new concerns. Allergies No Known Allergies Allergy (Verified 06/27/25 11:43) HPI HPI OV-LT Index finger LAC, DOI: 06/12/25 w/ xray: Details: Juan Daniel is a 70 year old right hand dominant male who presents today for a wound check and suture removal status post left index finger laceration and left index distal phalanx fracture, DOI: 06/12/25. At his last visit he was advised he could begin washing laceration under soap and water in the sink or the shower. He was reminded to not submerge his hand under water. Patient was instructed to use splint whenever not washing the laceration site and to change his dressings daily. Patient reports today he has changed dressing as advised. He also finished his antibiotics today. No new concerns. [facility] Social History (Updated 06/16/25 @ 10:58 by JEAN-PIERRE Ricketts) Alcohol intake: former Patient Tobacco Use Status: Never used Tobacco Current occupation: rt handed Review of Systems Const All systems reviewed & are unremarkable except as noted in HPI and below Physical Exam Vital Signs: BMI result Body Mass Index 27.5 Extrem Other: Patient is alert, oriented, and in no acute distress. Neuro: Normal sensation of the tips of all digits of the left hand at this time Vascular: Cap refill brisk Pain: Mild tenderness to palpation about distal phalanx of left index finger ROM: Patient is able to flex and extend all digits of the left hand without difficulty Skin: Complex laceration noted of the distal phalanx of the left index finger No evidence of surrounding erythema or discharge General: No ecchymosis, erythema, or evidence of infection. Psych: Appears grossly normal Affect normal Attitude cooperative Results Reviewed Results Reviewed: X-rays obtained in the office today and independently reviewed by me, Len Gonzalez PA-C, demonstrate nondisplaced fracture of the distal phalanx of the left index finger with unchanged alignment from previous x-rays. Assessment & Plan Assessment & Plan (1) Open fracture of phalanx of left index finger: Code(s): S62.601B - Fracture of unspecified phalanx of left index finger, initial encounter for open fracture Category: Medical Plan 1. Open fracture of the left index finger Date of injury 06/12/2025 Patient appears to be recovering well from his injury Patient is educated about the typical recovery course Patient may begin washing laceration under soap and water in the sink of the shower No submerging Splint with daytime activities Sutures removed today without issue Patient is amenable to this plan Follow-up in 3-4 week for repeat assessment l, sooner with any acute concerns Orders: Orders XR hand LT min 3V Today M79.642 - Pain in left hand Coding Level of Care Code Global (08909) Diagnoses Open fracture of phalanx of left index finger S62.601B
--- OUTSIDE RECORDS SUMMARY | 2025-06-27 12:39 | XMS_ITS | Clinical Summary ---
Author Organization [facility] Address [address] [place] [address] Care Team Providers Care Value Analyst Name Role Phone Enrique Diaz MD Primary Care Provider [phone] Allergies No known active allergies Medications Medication [...] age to complete this topic Care Teams Value Analyst Relationship Specialty Start Date End Date Enrique Diaz MD PCP - General Internal Medicine 01/29/22
--- OUTSIDE RECORDS SUMMARY | 2025-06-27 12:39 | XMS_ITS | Clinical Summary ---
Author Organization [address] Address [address] [place] [phone] Phone Care Team Providers Care Network Strategist Name Role Phone Enrique Diaz MD Primary Care Provider Allergies No known active allergies Medications butalbital-aceta minophen-caffein e-codeine 40-212-18-30 mg capsule Take by mouth as needed. [...] Aortic stenosis 10/18/2021 Overview (10/17/2024): Follows with [facility] on a yearly [...] Surgery Date Site/Laterality Comments COLONOSCOPY 08/28/2009 PROCEDURE: [place] COLONOSCOPY FLX DX W/COLLJ SPEC WHEN PFRMD OTHER SURGICAL HISTORY Left PROCEDURE: [place] LIGJ DIVJ & STRIPPING SHORT SAPHENOUS VEIN [...] 1:15 PM EDT Office Visit Adult Medicine [address] [phone] Enrique Diaz MD [address] [place] [phone] Health Maintenance Due Date Last Done Comments [...] mg/dL LAB CHEMISTRY METHOD 12/19/2024 6:03 PM [facility] Triglycerides 167(H) 0 - 150 mg/dL LAB CHEMISTRY METHOD 12/19/2024 6:03 PM [facility] HDL 47 >=40 mg/dL LAB CHEMISTRY METHOD 12/19/2024 6:03 PM [facility] LDL Calculated 147(H) 0 - 100 mg/dL LAB CHEMISTRY METHOD 12/19/2024 6:03 PM [facility] VLDL Cholesterol Fam 33.4 mg/dL LAB CHEMISTRY METHOD 12/19/2024 6:03 PM [facility] Non HDL Chol. (LDL+VLDL) 180(H) <145 mg/dL LAB CHEMISTRY METHOD 12/19/2024 6:03 PM [facility] Chol/HDL Ratio 4.8(H) 0.0 - 4.4 LAB CHEMISTRY METHOD 12/19/2024 6:03 PM [facility] Blood Venous blood specimen / Unknown Venipuncture / Unknown 12/19/2024 2:15 PM EST 12/19/2024 2:15 PM EST us Enrique Diaz MD LAB BLOOD ORDERABLES Final Resu lt [facility] [address] [place] [address], * Comprehensive metabolic panel (12/19/2024 2:15 PM EST) Sodium 133 133 - 145 mmol/L LAB CHEMISTRY METHOD 12/19/2024 6:03 PM [facility] Potassium 3.8 3.5 - 5.5 mmol/L LAB CHEMISTRY METHOD 12/19/2024 6:03 PM [facility] Chloride 96 96 - 110 mmol/L LAB CHEMISTRY METHOD 12/19/2024 6:03 PM [facility] CO2 31 21 - 32 mmol/L LAB CHEMISTRY METHOD 12/19/2024 6:03 PM [facility] Anion Gap 6 3 - 11 LAB CHEMISTRY METHOD 12/19/2024 6:03 PM [facility] Glucose 89 70 - 100 mg/dL LAB CHEMISTRY METHOD 12/19/2024 6:03 PM [facility] BUN 19 5 - 25 mg/dL LAB CHEMISTRY METHOD 12/19/2024 6:03 PM [facility] Creatinine 1.15 0.70 - 1.30 mg/dL LAB CHEMISTRY METHOD 12/19/2024 6:03 PM [facility] eGFR 68 >=60 mL/min/1. 73m2 LAB CHEMISTRY METHOD 12/19/2024 6:03 PM [facility] Comment:Calculation based on the Chronic Kidney Disease Epidemiology Collaboration (CKD-EPI) equation refit without adjustment for race. BUN/Creatinine Ratio 16.5 LAB CHEMISTRY METHOD 12/19/2024 6:03 PM [facility] Calcium 10.0 8.5 - 10.5 mg/dL LAB CHEMISTRY METHOD 12/19/2024 6:03 PM [facility] AST (SGOT) 17 10 - 42 unit/L LAB CHEMISTRY METHOD 12/19/2024 6:03 PM [facility] ALT (SGPT) 20 10 - 60 unit/L LAB CHEMISTRY METHOD 12/19/2024 6:03 PM [facility] Alkaline Phosphatase 88 42 - 121 unit/L LAB CHEMISTRY METHOD 12/19/2024 6:03 PM [facility] Total Protein 7.4 6.0 - 8.0 g/dL LAB CHEMISTRY METHOD 12/19/2024 6:03 PM [facility] Albumin 4.2 3.2 - 5.0 g/dL LAB CHEMISTRY METHOD 12/19/2024 6:03 PM [facility] Total Bilirubin 0.4 0.0 - 1.4 mg/dL LAB CHEMISTRY METHOD 12/19/2024 6:03 PM [facility] Blood Venous blood specimen / Unknown Venipuncture / Unknown 12/19/2024 2:15 PM EST 12/19/2024 2:15 PM EST Enrique Diaz MD LAB BLOOD ORDERABLES Final Resu lt [facility] [address] [place] [address], * Depression Screening (06/16/2024) Depression Screening Abstracted [...] Insurance MEDICA[place] - [place]ARE Care Teams Network Strategist Relationship Specialty Start Date End Date Enrique Diaz MD [address] [place] [phone] PCP - General Internal Medicine 09/28/15
--- OUTSIDE RECORDS SUMMARY | 2025-06-27 12:39 | XMS_ITS | Encounter Summary ---
Author Organization [employer] [facility] Address [address] [place] [address] Care Team Providers Care Insurance Sales Assistant Name Role Phone Unavailable Primary Care Provider [...]
== END 2025-06-27 12:50 | disposition home or self-care (01) ==
LOC: HO.HOS 11:37
PROVIDERS: PCP Internal Medicine
DX: S62.663B Nondisplaced fracture of distal phalanx of left middle finger, initial encounter for open fracture (principal)
CPT/HCPCS: 99213

== ENCOUNTER 2025-06-27 11:37 | Outpatient (REF) | payer MEDICARE, MEDICAID, SELFPAY ==
--- NOTE | ~2025-06-27 | XR_ITS ---
CLINICAL HISTORY: M79.642 - Pain in left hand --- Additional Notes or Special Instructions: Attn IF 3 view left hand Comparison: DX/SR - XR HAND 3 OR MORE VIEWS LEFT - 06/16/25 10:36 EDT Findings: Fracture of 2nd distal phalanx is unchanged. No significant loss of joint space or osteophytes. Small likely metallic foreign body seen in the soft tissues adjacent to the 1st distal phalanx volar surface. IMPRESSION: 1. Fracture of 2nd distal phalanx is unchanged. 2. Small likely metallic foreign body again seen in the soft tissues adjacent to the 1st distal phalanx volar surface. This document has been electronically signed by: Darren Santamaria MD on 06/28/2025 12:56:15
== END 2025-06-27 11:38 | disposition home or self-care (01) ==
LOC: HO.HOSX 11:37
PROVIDERS: PCP Internal Medicine
DX: S62.601D Fracture of unspecified phalanx of left index finger, subsequent encounter for fracture with routine healing (principal); M79.642 Pain in left hand; X58.XXXD Exposure to other specified factors, subsequent encounter
CPT/HCPCS: 73130; 99212

== ENCOUNTER 2025-07-26 09:08 | Outpatient (REF) | payer MEDICARE, MEDICAID, SELFPAY ==
--- NOTE | ~2025-07-26 | XR_ITS ---
EXAMINATION: XR HAND, LEFT CLINICAL INFORMATION: M79.642 - Pain in left hand, Attention index finger; COMPARISON: None available. TECHNIQUE: PA, lateral, and oblique views of the left hand. FINDINGS: Small corticated fragment is present on the ulnar side of the DIP joint of the second digit. There is also a small corticated fragment on the radial side of the tuft. Small marginal osteophytes are present involving the PIP joint of the second digit and DIP joints of the second and fifth digits, and the second, third, and fourth MCP joints. 3 Punctate foci of high attenuation are noted in the soft tissues ulnar to the tuft of the thumb, likely foreign bodies or dystrophic calcification. XR/XR hand LT min 3V IMPRESSION: Mild osteoarthritis. No acute abnormality. Electronically signed by: Kevin Burton MD 07/26/2025 12:16 PM EDT
--- OUTSIDE RECORDS SUMMARY | 2025-07-26 10:47 | XMS_ITS | Encounter Summary ---
Author Organization [facility] [employer] [facility] Address [address] [place] [address] Care Team Providers Care Boiler Assistant Operator Name Role Phone Unavailable Primary Care Provider [...]
--- OUTSIDE RECORDS SUMMARY | 2025-07-26 10:47 | XMS_ITS | Clinical Summary ---
Author Organization [facility] [employer] [facility] Address [address] [place] [address] [address] [place] [address] Care Team Providers Care Business Intelligence Engineer Name Role Phone Unavailable Primary Care Provider Unavailabl e Social History Tobacco Use Types Packs/Day Years Used Date Smoking Tobacco: Never Assessed Sex and Gender Information Value Date Recorded Sex Assigned at Male 09/15/2022 10:20 AM EDT Legal Sex Male 10:20 AM EDT Gender Identity Male 09/15/2022 10:20 AM EDT Sexual Orientation Choose not to disclose 2021 10:20 AM EDT Plan of Treatment Health Maintenance Due Date Last Done Comments CT Colonography 1953 Colonoscopy 1953 Colorectal Cancer Screening 1953 Depression Screening 1953 FIT DNA/Cologuard 1953 FIT 1953 FOBT 1953 Lipid Panel 1953 Sigmoidoscopy 1953 Alcohol/Substance Use Screening 1965 Tobacco Screening 1965 DTaP/Tdap/Td Vaccines (1 - Tdap) 1972 Pneumococcal Vaccine: 50+ Ye ars (1 of 1 - PCV) 2003 Zoster Vaccines (1 of 2) 2003 COVID-19 Vaccine ( - 2023-2 5 season) 2025 Influenza Vaccine (#1) 2025 RSV Patients and Pa tients Aged 60 years or older (1 - 1-dose 75+ series) 2028 HIB Vaccines Aged Out No longer eligi [...] patient's age to complete this topic Meningococcal Vaccine Aged Out No dodie otilia eligible based on patient's age to complete this topic RSV under 20 months Aged Out No longe r eligible based on patient's age to complete this topic Rotavirus Vaccines Aged Out No longer eligible based on patient's age to complete this topic
--- OUTSIDE RECORDS SUMMARY | 2025-07-26 10:47 | XMS_ITS | Clinical Summary ---
Author Organization [address] Address [address] [place] [phone] Phone Care Team Providers Care Principal System Software Engineer Name Role Phone Enrique Diaz MD Primary Care Provider Allergies No known active allergies Medications butalbital-acet aminophen-caffe ine-codeine [id number] mg capsule Take by mouth as needed. Active ciclopirox (PENLAC) 8 % solution APPLY TO AFFECTED NAIL DAILY. REMOVE WITH ALCOHOL EVERY 7 DAYS. APPLY FOR 8 WEEKS. 08/18/20 24 Active latanoprost (XALATAN) 0.005 % ophthalmic solution 1 Drop at bedtime. Active melatonin 10 mg tablet Take 5 mg by mouth every evening. 06/16/20 24 Active miconazole (MICATIN) 2 % cream Apply to affected area twice a day for 4 weeks. 03/03/20 22 Active sulindac (CLINORIL) 150 mg tablet TAKE 1 TABLET BY MOUTH TWICE A DAY 01/27/20 24 Active traZODone (DESYREL) 50 mg tablet TAKE 1 TABLET BY MOUTH EVERYDAY AT BEDTIME 09/05/20 24 Active zolpidem (AMBIEN) 10 mg tablet Take by mouth at bedtime as needed. Active hydrocortisone 2.5 % cream Apply 1 Application topically 2 (two) times a day. APPLY TO AFFECTED AREA 30 g 1 12/19/19 25 Active diclofenac (VOLTAREN) 1 % topical gel Apply 2 g topically 4 (four) times a day. 30 g 1 12/19/19 25 Active methocarbamoL (ROBAXIN) 500 mg tabletIndicatio ns:Neck pain,Bilateral shoulder pain, unspecified chronicity Take 1 tablet (500 mg total) by mouth 3 (three) times a day. 40 tablet 12/19/19 25 Active atorvastatin (LIPITOR) 40 mg tablet TAKE 1 TABLET BY MOUTH EVERY DAY 90 tablet 1 12/23/19 25 Active chlorthalidone (HYGROTON) 50 mg tablet TAKE 1 TABLET BY MOUTH EVERY DAY 90 tablet 1 12/23/19 25 Active ibuprofen (ADVIL,MOTRIN) 600 mg tablet Take 1 tablet (600 mg total) by mouth 3 (three) times a day if needed for mild pain. 30 tablet 12/31/19 25 Active acetaminophen (TYLENOL) 500 mg tablet Take 2 tablets (1,000 mg total) by mouth every 6 (six) hours if needed for mild pain. 60 tablet 12/31/19 25 Active triamcinolone (KENALOG) 0.1 % ointment Apply topically 2 (two) times a day. 30 g 3 03/17/20 25 Active lisinopriL (PRINIVIL,ZESTR IL) 30 mg tablet TAKE 1 TABLET BY MOUTH EVERY DAY 90 tablet 1 07/18/20 25 Active lisinopriL (PRINIVIL,ZESTR IL) 30 mg tablet TAKE 1 TABLET BY MOUTH EVERY DAY 90 tablet 1 12/23/19 25 025 Discontinued potassium chloride (KLOR-CON M20) 20 mEq CR tablet Take 1 tablet (20 mEq total) by mouth 1 (one) time each day for 7 days. Tablet may be swallowed whole (do not crush/chew/suc k on) OR broken in half and each half swallowed separately OR dissolved (whole tablet) in ~4 ounces of water (allow ~2 minutes to dissolve, stir well and administer immediately). 7 each 06/29/20 25 025 Active Problems Problem Noted Date Diagnosed Date Insomnia 01/03/2022 Overview (10/17/2024): Follows with neurology (gentry) 6 mth basis. Tension headache 01/03/2022 Aortic stenosis 10/18/2021 Overview (10/17/2024): Follows with [facility] on a yearly basis. Diverticulosis [...] neoplasm Backache 04/18/2009 Overview (10/17/2024): IMO update Encounters Date Type Department Care Team Description 06/30/2025 Telephone Adult Medicine [address] [phone] Enrique Diaz MD 06/29/2025 1:15 PM EDT Office Visit Adult Medicine [address] [phone] Enrique Diaz MD Primary hypertension (Primary Dx); Pure hypercholesterolemia; Encounter for long-term (current) use of medications; Laceration of left index finger without foreign body without damage to nail, subsequent encounter from Last 3 Months Immunizations Name Administration Dates Next Due Influenza [...] Surgery Date Site/Laterality Comments COLONOSCOPY 08/28/2009 PROCEDURE: LA COLONOSCOPY FLX DX W/COLLJ SPEC WHEN PFRMD OTHER SURGICAL HISTORY Left PROCEDURE: LA LIGJ DIVJ & STRIPPING SHORT SAPHENOUS VEIN [...] Sign Reading Time Taken Comments Blood Pressure 124/68 06/29/2025 12:55 PM EDT Pulse 87 06/29/2025 12:55 PM EDT Temperature 35.9 C (96.7 F) 06/29/2025 12:55 PM EDT Respiratory Rate 16 06/29/2025 12:55 PM EDT Oxygen Saturation 97% 06/29/2025 12:55 PM EDT Inhaled Oxygen Concentration - - Weight 74.1 kg (163 lb 6.4 oz) 06/29/2025 12:55 PM EDT Height 162.6 cm (5' 4 ) 06/29/2025 12:55 PM EDT Body Mass Index 28.05 06/29/2025 12:55 PM EDT Plan of Treatment Upcoming Encounters Date Type Department Care Team (Late st Contact Info) Description 09/13/2025 1:[address] [facility] Endoscopy [address] [place] [phone] Nedra Cavazos MD [address] [place] [phone] 01/02/2026 1:30 PM EST Office Visit Adult Medicine [address] [phone] Desirae Kessler PA [address] [place] [phone] Health Maintenance Due Date Last Done Comments Falls Risk Assessment 10/24/2022 Medicare Annual Wellness Visit 10/24/2022 Social Influencers of Health Screening 10/24/2022 Depression Screening 11/16/2024 06/16/2024 COVID-19 Vaccine ( season) 2025 09/18/2022, 04/02/2022, 09/09/2021, Additional history exists Influenza Vaccine (#1) 2025 , 09/09/2023, 09/18/2022, Additional history exists Hypertension/CHF/CAD Annual BMP Blood Test 06/30/2026 06/30/2025, 06/29/2025, 12/19/2024, Additional history exists RSV Immunization Adult Patients (1 - 1-dose 75+ series) 2028 Colorectal Cancer Screening: Colonoscopy 12/06/2029 12/06/2019 Cholesterol Screening (Lipid Panel) 06/29/2030 06/29/2025, 12/19/2024, 06/16/2024, Additional history exists DTaP,Tdap,and Td Vaccines (4 - Td or Tdap) 05/21/2035 05/21/2025, 07/27/2020, 06/26/2010 Hepatitis C Screening Completed 12/31/2013 [...] Procedure Name Priority Date/Time Associated Diagnosis Comments BASIC METABOLIC PANEL Routine 06/30/2025 11:09 AM EDT Hypokalemia Hypochloremia Hyponatremia Hypercapnia LIPID PANEL WITH REFLEX TO DIRECT LDL Routine 06/29/2025 1:30 PM EDT Pure hypercholesterolemia COMPREHENSIVE METABOLIC PANEL Routine 06/29/2025 1:30 PM EDT Primary hypertension Encounter for long-term (current) use of medications DEPRESSION SCREENING Routine 06/16/2024 COLONOSCOPY Routine 12/06/2019 HEPATITIS C SCREENING Routine 12/31/2013 from Last 3 Months or Most Recently Relevant to Health Maintenance Results * (ABNORMAL) Basic metabolic panel (06/30/2025 11:09 AM EDT) Sodium 130(L) 133 - 145 mmol/L LAB CHEMISTRY METHOD 06/30/2025 2:26 PM [facility] Potassium 3.2(L) 3.5 - 5.5 mmol/L LAB CHEMISTRY METHOD 06/30/2025 2:26 PM [facility] Chloride 92(L) 96 - 110 mmol/L LAB CHEMISTRY METHOD 06/30/2025 2:26 PM [facility] CO2 31 21 - 32 mmol/L LAB CHEMISTRY METHOD 06/30/2025 2:26 PM [facility] Anion Gap 7 3 - 11 LAB CHEMISTRY METHOD 06/30/2025 2:26 PM [facility] Glucose 73 70 - 100 mg/dL LAB CHEMISTRY METHOD 06/30/2025 2:26 PM [facility] BUN 11 5 - 25 mg/dL LAB CHEMISTRY METHOD 06/30/2025 2:26 PM [facility] Creatinine 1.14 0.70 - 1.30 mg/dL LAB CHEMISTRY METHOD 06/30/2025 2:26 PM [facility] eGFR 68 >=60 mL/min/1. 73m2 LAB CHEMISTRY METHOD 06/30/2025 2:26 PM EDT [facility] Comment:Calculation based on the Chronic Kidney Disease Epidemiology Collaboration (CKD-EPI) equation refit without adjustment for race. BUN/Creatinine Ratio 9.6 LAB CHEMISTRY METHOD 06/30/2025 2:26 PM EDT [facility] Calcium 9.7 8.5 - 10.5 mg/dL LAB CHEMISTRY METHOD 06/30/2025 2:26 PM EDT [facility] Blood Venous blood specimen / Unknown Venipuncture / Unknown 06/30/2025 11:09 AM EDT 06/30/2025 11:09 AM EDT us Enrique Diaz MD LAB BLOOD ORDERABLES Final Resu lt [facility] [address] [place] [address], * (ABNORMAL) Lipid panel with reflex to direct LDL (06/29/2025 1:30 PM EDT) Cholesterol 211(H) 0 - 200 mg/dL LAB CHEMISTRY METHOD 06/29/2025 5:16 PM EDT [facility] Triglycerides 233(H) 0 - 150 mg/dL LAB CHEMISTRY METHOD 06/29/2025 5:16 PM T [facility] HDL 57 >=40 mg/dL LAB CHEMISTRY METHOD 06/29/2025 5:16 PM EDT [facility] LDL Calculated 107(H) 0 - 100 mg/dL LAB CHEMISTRY METHOD 06/29/2025 5:16 PM EDT [facility] Comment:Estimated LDL Calcul ated using equation: Total cholesterol - HDL cholesterol - (Triglycerides/5) VLDL Cholesterol Fam 46.6 mg/dL LAB CHEMISTRY METHOD 06/29/2025 5:16 PM EDT [facility] Non HDL Chol. (LDL+VLDL) 154(H) <145 mg/dL LAB CHEMISTRY METHOD 06/29/2025 5:16 PM EDT [facility] Chol/HDL Ratio 3.7 0.0 - 4.4 LAB CHEMISTRY METHOD 06/29/2025 5:16 PM [facility] Blood Venous blood specimen / Unknown Venipuncture / Unknown 06/29/2025 1:30 PM EDT 06/29/2025 1:30 PM EDT us Enrique Diaz MD LAB BLOOD ORDERABLES Final Resu lt [facility] [address] [place] [address], * (ABNORMAL) Comprehensive metabolic panel (06/29/2025 1:30 PM EDT) Sodium 130(L) 133 - 145 mmol/L LAB CHEMISTRY METHOD 06/29/2025 5:16 PM [facility] Potassium 3.4(L) 3.5 - 5.5 mmol/L LAB CHEMISTRY METHOD 06/29/2025 5:16 PM [facility] Chloride 90(L) 96 - 110 mmol/L LAB CHEMISTRY METHOD 06/29/2025 5:16 PM [facility] CO2 34(H) 21 - 32 mmol/L LAB CHEMISTRY METHOD 06/29/2025 5:16 PM [facility] Anion Gap 6 3 - 11 LAB CHEMISTRY METHOD 06/29/2025 5:16 PM [facility] Glucose 89 70 - 100 mg/dL LAB CHEMISTRY METHOD 06/29/2025 5:16 PM [facility] BUN 12 5 - 25 mg/dL LAB CHEMISTRY METHOD 06/29/2025 5:16 PM [facility] Creatinine 0.98 0.70 - 1.30 mg/dL LAB CHEMISTRY METHOD 06/29/2025 5:16 PM [facility] eGFR 82 >=60 mL/min/1. 73m2 LAB CHEMISTRY METHOD 06/29/2025 5:16 PM EDT [facility] Comment:Calculation based on the Chronic Kidney Disease Epidemiology Collaboration (CKD-EPI) equation refit without adjustment for race. BUN/Creatinine Ratio 12.2 LAB CHEMISTRY METHOD 06/29/2025 5:16 PM EDT [facility] Calcium 9.7 8.5 - 10.5 mg/dL LAB CHEMISTRY METHOD 06/29/2025 5:16 PM EDT [facility] AST (SGOT) 20 10 - 42 unit/L LAB CHEMISTRY METHOD 06/29/2025 5:16 PM [facility] ALT (SGPT) 27 10 - 60 unit/L LAB CHEMISTRY METHOD 06/29/2025 5:16 PM [facility] Alkaline Phosphatase 78 42 - 121 unit/L LAB CHEMISTRY METHOD [facility]/29[facility]25 [facility] Total Protein 6.8 6.0 - 8.0 g/dL LAB CHEMISTRY METHOD 06/29/2025 5:16 PM [facility] Albumin 4.3 3.2 - 5.0 g/dL LAB CHEMISTRY METHOD 06/29/2025 5:16 PM [facility] Total Bilirubin 0.4 0.0 - 1.4 mg/dL LAB CHEMISTRY METHOD 06/29/2025 5:16 PM T [facility] Blood Venous blood specimen / Unknown Venipuncture / Unknown 06/29/2025 1:30 PM EDT 06/29/2025 1:30 PM EDT us Enrique Diaz MD LAB BLOOD ORDERABLES Final Resu lt [facility] [address] [place] [address], * Depression Screening (06/16/2024) [facility] Depression Screening Abstracted Historical Provider HEALTH MAINTENANCE Final Result * Colonoscopy (12/06/2019) Colonoscopy Abstracted, no interpretation Anatomical Region Laterality Modality Other Historical Provider HEALTH MAINTENANCE Final Result * Hepatitis C Screening (12/31/2013) Hepatitis C Screening Abstracted Historical Provider HEALTH MAINTENANCE Final Result from Last 3 Months or Most Recently Relevant to Health Maintenance Insurance MEDICARE [place]ICAID - [place] Care Teams Principal System Software Engineer Relationship Specialty Start Date End Date Enrique Diaz MD [place], [place] PCP - General Internal Medicine 09/28/15
--- OUTSIDE RECORDS SUMMARY | 2025-07-26 10:47 | XMS_ITS | Clinical Summary ---
Author Organization [facility] Address [address] [place] [address] Care Team Providers Care Ship'S Engineer Name Role Phone Enrique Diaz MD Primary Care Provider [phone] Allergies No known active allergies Medications Medication [...] Tdap) 06/26/2020 06/26/2010 COVID-19 Vaccine ( season) 2025 09/09/2021, 02/02/2021, 01/05/2021 Influenza Vaccine (#1) 2025 [...] age to complete this topic Care Teams Ship'S Engineer Relationship Specialty Start Date End Date Enrique Diaz MD PCP - General Internal Medicine 01/29/22
--- OUTSIDE RECORDS SUMMARY | 2025-07-26 10:47 | XMS_ITS | Encounter Summary ---
Author Organization [facility] [employer] [facility] Address [address] [address] [place] [address] Care Team Providers Care Silk Spooler Name Role Phone Unavailable Primary Care Provider Unavailabl e Encounter Details Date Type Department Care Team (Latest Contact Info) Description 08/12/2021 Abstract [facility]HC CONVERSIONS Dental, Provider, DDS Social History Tobacco [...]
== END 2025-07-26 09:09 | disposition home or self-care (01) ==
LOC: HO.HOSX 09:08
DX: S62.601B Fracture of unspecified phalanx of left index finger, initial encounter for open fracture (principal)
CPT/HCPCS: 73130; 99212

== ENCOUNTER 2025-07-26 11:38 | Outpatient (AMB) | payer MEDICARE, MEDICAID, SELFPAY ==
[2025-07-26 11:40] VITALS: BMI 27.5
--- NOTE | 2025-07-26 11:40 | MHC.OFFVIS ---
Vital Signs 07/26/25 11:40 Height 5 ft 4 in Weight 160 lb BMI 27.5 Intake Visit Reasons: OV-LT Index finger LAC, DOI: 06/12/25 w/ xray Intake Note: Juan Daniel is a 70 year old right hand dominant male who presents today for a follow up status post left index finger laceration and left index distal phalanx fracture, DOI: 06/12/25. At his last visit in office suture were removed without any issue. He was advised to splint with day time activities. Patient reports he has been working on ROM exercises with a ball. He expresses concern for the redness and the skin color change at the DIP. He takes Tylenol PRN with relief. Denies numbness, tingling. Telephone Quotation Clerk Required: Yes Telephone Quotation Clerk Language: Cardiology Teacher Services: Telephone Quotation Clerk Present Telephone Quotation Clerk Name: JEAN-PIERRE Francisco/IVETT Allergies No Known Allergies Allergy (Verified 07/26/25 11:41) HPI HPI OV-LT Index finger LAC, DOI: 06/12/25 w/ xray: Details: Juan Daniel is a 70 year old right hand dominant male who presents today for a follow up status post left index finger laceration and left index distal phalanx fracture, DOI: 06/12/25. At his last visit in office suture were removed without any issue. He was advised to splint with day time activities. Patient reports he has been working on ROM exercises with a ball. He expresses concern for the redness and the skin color change at the DIP. He takes Tylenol PRN with relief. Denies numbness, tingling. [facility] Social History (Updated 06/16/25 @ 10:58 by JEAN-PIERRE Ricketts) Alcohol intake: former Patient Tobacco Use Status: Never used Tobacco Current occupation: rt handed Review of Systems Const All systems reviewed & are unremarkable except as noted in HPI and below Physical Exam Vital Signs: BMI result Body Mass Index 27.5 Extrem Other: Patient is alert, oriented, and in no acute distress. Neuro: Normal sensation of the tips of all digits of the left hand at this time Vascular: Cap refill brisk Pain: No further tenderness to palpation about distal phalanx of left index finger ROM: Patient is able to flex and extend all digits of the left hand without difficulty Skin: Complex laceration noted of the distal phalanx of the left index finger, well healed No evidence of surrounding erythema or discharge, although there is a slight discoloration of the distal aspect of the left index finger General: No ecchymosis, erythema, or evidence of infection. Psych: Appears grossly normal Affect normal Attitude cooperative Results Reviewed Results Reviewed: X-rays obtained in the office today and independently reviewed by me, Len Gonzalez PA-C, demonstrate nondisplaced fracture of the distal phalanx of the left index finger with unchanged alignment from previous x-rays and evidence of good interval bony healing. Assessment & Plan Assessment & Plan (1) Open fracture of phalanx of left index finger: Code(s): S62.601B - Fracture of unspecified phalanx of left index finger, initial encounter for open fracture Category: Medical Plan 1. Open fracture of the left index finger Date of injury 06/12/2025 Patient appears to be recovering well from his injury Patient is educated about the typical recovery course Patient may begin washing laceration under soap and water in the sink of the shower No submerging Splint with high-risk daytime activities 5 lb weight limit in left hand Patient is amenable to this plan Follow-up in 3-4 week for repeat assessment l, sooner with any acute concerns Orders: Orders XR hand LT min 3V Today M79.642 - Pain in left hand Coding Level of Care Code Global (87285) Diagnoses Open fracture of phalanx of left index finger S62.601B
== END 2025-07-26 11:59 | disposition home or self-care (01) ==
LOC: HO.HOS 11:39
PROVIDERS: PCP Internal Medicine
DX: S62.601B Fracture of unspecified phalanx of left index finger, initial encounter for open fracture (principal)
CPT/HCPCS: 99213

== ENCOUNTER → 2025-07-26 11:39 | Outpatient (BNV) | payer MEDICARE, MEDICAID, SELFPAY | PROVIDERS: Visit Provider Radiology Diagnostic Radiology | DX: M79.642 Pain in left hand (principal) | CPT/HCPCS: 73130 ==

== ENCOUNTER 2025-08-30 11:27 | Outpatient (AMB) | payer MEDICARE, MEDICAID, SELFPAY ==
--- NOTE | 2025-08-30 11:29 | A.OFFVIS_ITS ---
Vital Signs 08/30/25 11:33 Height 5 ft 4 in Weight 170 lb BMI 29.2 Handedness Right Intake Visit Reasons: OV-LT Index finger LAC, DOI: 06/12/25 Intake Note: Juan Daniel is a 70 year old right hand dominant man who presents today for a follow up visit for his left index finger laceration and left index distal phalanx fracture, DOI: 06/12/25. His last time in office he was advised to begin washing laceration under soap and water in the sink or the shower. Splint with high-risk daytime activities and 5 lb weight limit in left hand. Patient reports he has pain at the left hand 2nd DIP when he makes a full closed fist or with flexion. He also states the tip of his finger feels hard and unsure of what it is. He says he has been using a stress ball and squeezing it can cause mild pain in the left index finger. Denies numbness and tingling. Customer Field Representative Required: Yes Customer Field Representative Language: Cyber Workforce Developer And Manager Services: Customer Field Representative Offered & Declined Allergies No Known Allergies Allergy (Verified 09/06/25 11:51) HPI HPI OV-LT Index finger LAC, DOI: 06/12/25: Details: Juan Daniel is a 70 year old right hand dominant man who presents today for a follow up visit for his left index finger laceration and left index distal phalanx fracture, DOI: 06/12/25. His last time in office he was advised to begin washing laceration under soap and water in the sink or the shower. Splint with high-risk daytime activities and 5 lb weight limit in left hand. Patient reports he has pain at the left hand 2nd DIP when he makes a full closed fist or with flexion. He also states the tip of his finger feels hard and unsure of what it is. He says he has been using a stress ball and squeezing it can cause mild pain in the left index finger, although he reports his pain has improved significantly.. Denies numbness and tingling. [facility] Medical History (Updated 09/06/25 @ 11:50 by Jumana Lockett CNP) Prostatism Social History Alcohol intake: former Patient Tobacco Use Status: Never used Tobacco Current occupation: rt handed Physical Exam Vital Signs: BMI result Body Mass Index 29.2 Extrem Other: Patient is alert, oriented, and in no acute distress. Neuro: Normal sensation of the tips of all digits of the left hand at this time Vascular: Cap refill brisk Pain: No further tenderness to palpation about distal phalanx of left index finger ROM: Patient is able to flex and extend all digits of the left hand without difficulty Skin: Complex laceration noted of the distal phalanx of the left index finger, well healed No evidence of surrounding erythema or discharge discoloration appears resolved General: No ecchymosis, erythema, or evidence of infection. Psych: Appears grossly normal Affect normal Attitude cooperative Assessment & Plan Assessment & Plan (1) Open fracture of phalanx of left index finger: Code(s): S62.601B - Fracture of unspecified phalanx of left index finger, initial encounter for open fracture Category: Medical Plan 1. Open fracture of the left index finger Date of injury 06/12/2025 Patient appears to be recovering well from his injury Patient is educated about the typical recovery course Under water activities now okay OT referral placed for range of motion strengthening of the left hand Splint with high-risk daytime activities Patient may slowly increase to full in the lifting over the next 3-4 weeks Patient is amenable to this plan Follow-up as needed r with any acute concerns Orders: Orders OT Evaluation and Treatment 08/30/25 S62.601B - Fracture of unspecified phalanx of left index finger, initial encounter for open fracture Coding Level of Care Code Est Pt Level 3 (28898) Diagnoses Open fracture of phalanx of left index finger S62.601B
[2025-08-30 11:33] VITALS: BMI 29.2
== END 2025-08-30 11:41 | disposition home or self-care (01) ==
LOC: HO.HOS 11:27
PROVIDERS: PCP Internal Medicine
DX: S62.601B Fracture of unspecified phalanx of left index finger, initial encounter for open fracture (principal)
CPT/HCPCS: 99213

== ENCOUNTER → 2025-08-30 11:27 | Outpatient (BNVA) | payer MEDICARE, MEDICAID, SELFPAY | PROVIDERS: PCP Internal Medicine | DX: S62.601B Fracture of unspecified phalanx of left index finger, initial encounter for open fracture (principal) | CPT/HCPCS: 99212 ==

== ENCOUNTER 2025-09-06 11:44 | Outpatient (AMB) | payer MEDICARE, MEDICAID, SELFPAY ==
--- NOTE | 2025-09-06 11:47 | MHC.OFFVIS ---
Intake Visit Reasons: 6m Allergies No Known Allergies Allergy (Verified 09/06/25 11:51) Medication List - Last Reconciled 09/06/25 by Jumana Lockett CNP atorvastatin 40 mg PO DAILY fkwwzjyupi-csnsnuzjpaijp-ocgo 50-325-40 mg 1 tab PO Q8H PRN chlorthalidone 50 mg PO DAILY latanoprost 0.005% 1 drp ophthalmic-Right BEDTIME lisinopril 30 mg PO DAILY triamcinolone acetonide 0.1% topical BID zolpidem 5 mg PO BEDTIME HPI Comments Details: He was doing okay. He got few headaches each month on average. He had 3 headaches last week. Butalbital as needed helped. Sleep was better with zolpidem and he needed refill of medication. No medication side effects. No dizziness. Shoulder injections from [facility] helped. History of right occipital and temporal region headaches for > 12 years. 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 Last MRI did not show any change. This is considered an incidental finding. COUNTS INCLUDE 234 BEDS AT THE [facility] Medical History (Updated 09/06/25 @ 11:50 by Jumana Lockett CNP) Prostatism Social History Alcohol intake: former Patient Tobacco Use Status: Never used Tobacco Current occupation: rt handed Review of Systems Const Denies chills, Denies daytime sleepiness, Reports difficulty sleeping, Denies fatigue, Denies fever(s), Denies frequent falls, Reports headache(s), Denies increased appetite, Denies poor appetite, Denies snoring, Denies weakness, Denies weight gain and Denies weight loss Eyes Denies loss of vision ENT Denies vertigo, Denies dizziness, Reports headache(s) and Denies neck pain Card Denies chest pain at rest, Denies chest pain with activity, Denies syncope, Denies leg edema, Denies palpitations, Denies dyspnea and Denies dyspnea on exertion Resp Denies cough, Denies dyspnea, Denies dyspnea on exertion and Denies snoring GI Denies abdominal pain, Denies constipation, Denies heartburn, Denies diarrhea and Denies nausea Denies urinary frequency, Denies urinary incontinence and Denies urinary urgency Musc Denies abnormal gait, Denies back pain, Denies myalgias, Denies arthralgias, Denies neck pain, Denies numbness and Denies tingling Neuro Denies abnormal gait, Denies vertigo, Denies dizziness, Denies syncope, Denies frequent falls, Reports headache(s), Denies lack of coordination, Denies loss of vision, Denies memory loss, Denies numbness, Denies Other visual disturbances, Denies restless legs, Denies seizure-like activity, Denies tingling, Denies paresthesias, Denies tremor(s) and Denies weakness Psych Denies anxiety, Denies depression, Denies auditory hallucinations, Denies memory loss and Denies visual hallucinations Endo Denies fatigue and Denies palpitations Physical Exam Const Other: General Appearance:? normal, in no acute distress. Heart:? S1, S2 normal, no murmurs. Lungs:? clear anteriorly and posteriorly. Musculoskeletal:? normal. Extremities:? no edema. Psych:? alert, oriented, cognitive function intact, cooperative with exam. Neuro Other: Abnormal Neurological Findings:?none.? Mental Status: alert and oriented X 3. Normal attention, orientation, memory, and affect. Cranial Nerves: Pupils are equal, round, and reactive to light. External ocular muscles are intact. Visual slater are full, no ptosis. Face is symmetrical, no facial weakness or droop. Facial sensations are normal. Tongue protrudes in midline. Palate elevates symmetrically. Shoulder shrugging is normal Motor Examination: Normal muscle tone, bulk and strength. No atrophy or fasciculations. No drift of the extended upper extremities. DTR 2+. Plantars are flexor. Sensory Exam: Normal light touch, temperature, pinprick, vibration, and joint-position sensations. Rhomberg sign is absent. Coordination: No ataxia. No titubation. Gait Exam: Within normal limits. Cerebellar Signs: Nwqjns-dn-rldz and bkev-fw-jccp is normal. Extrapyramidal System: No tremor, rigidity with normal facial expressions. No bradykinesia. No bradyphrenia. Normal arm swing and posture. No propulsion or retropulsion. Speech: Normal. Assessment & Plan Assessment & Plan (1) Tension headache: Code(s): G44.209 - Tension-type headache, unspecified, not intractable Category: Medical Plan: Continue cbskmnzoyf-OGXR-knbpiccm 50-325-40mg 1 tablet as needed for headache q8h #20 for 30 days. (2) Insomnia: Code(s): G47.00 - Insomnia, unspecified Category: Medical Qualifiers: Insomnia type: unspecified Qualified Code(s): G47.00 - Insomnia, unspecified Plan: Continue zolpidem 5mg 1 tablet at bedtime as needed for sleep #30 for 30 days. Medications: Changed From zolpidem 5 mg PO BEDTIME To zolpidem 5 mg PO BEDTIME PRN 30 tabs 5RF sleep 30 days From gimdiyhtaa-trdhirmsskhvu-pacw 50-325-40 mg 1 tab PO Q8H PRN To thbvoibfbe-dwusspvbdtuet-gdny 50-325-40 mg 1 tab PO Q8H PRN 20 tabs 5RF headache 30 days Coding Level of Care Code Est Pt Level 4 (41142) Diagnoses Tension headache G44.209 Insomnia, unspecified type G47.00 Insomnia type: unspecified
--- OUTSIDE RECORDS SUMMARY | 2025-09-06 16:27 | XMS_ITS | Clinical Summary ---
Author Organization [facility] Address [address] [place] [address] Care Team Providers Care Road Sign Installer Name Role Phone Enrique Diaz MD Primary Care Provider [phone] Allergies No known active allergies Medications Medication [...] age to complete this topic Care Teams Road Sign Installer Relationship Specialty Start Date End Date Enrique Diaz MD PCP - General Internal Medicine 01/29/22
--- OUTSIDE RECORDS SUMMARY | 2025-09-06 16:27 | XMS_ITS | Clinical Summary ---
Author Organization [facility] [employer] [facility] Address [address] [place] [address] [address] [place] [address] Care Team Providers Care Back Tacker Name Role Phone Unavailable Primary Care Provider [...]
--- OUTSIDE RECORDS SUMMARY | 2025-09-06 16:27 | XMS_ITS | Encounter Summary ---
Author Organization [employer] [facility] Address [address] 7[address] [place] [address] Care Team Providers Care Bank Vault Custodian Name Role Phone Unavailable Primary Care Provider [...]
--- OUTSIDE RECORDS SUMMARY | 2025-09-06 16:27 | XMS_ITS | Clinical Summary ---
Author Organization [address] Address [address] [place] [phone] Phone Care Team Providers Care Trailer Truck Driver Name Role Phone Enrique Diaz MD Primary Care Provider [phone] Allergies No known active allergies Medications butalbital-acet aminophen-caffe ine-codeine [id number] mg capsule Take by mouth as needed. [...] 1 5 Active methocarbamoL (ROBAXIN) 500 mg tabletIndicatio ns:Neck pain,Bilateral shoulder pain, unspecified chronicity Take 1 tablet (500 mg total) by mouth 3 (three) times a day. 40 tablet 5 Active atorvastatin (LIPITOR) 40 mg tablet [...] a day. 30 g 3 5 Active lisinopriL (PRINIVIL,ZESTR IL) 30 mg tablet TAKE 1 TABLET BY MOUTH EVERY DAY 90 tablet 1 5 Active polyethylene glycol (Golytely) 236-22.74-6.74 -5.86 gram solution Take 4L by mouth once for one dose. May substitue any PEG. Starting at 2PM the day before your procedure drink 1 8oz glasses at your own pace until you complete half of the gallon. Finish 2nd half of the gallon at 8PM. 4000 mL 5 Active bisacodyL (DULCOLAX) 5 mg EC tablet Take 2 tablets by mouth right before beginning bowel prep. See instructions provided by the office 2 tablet 5 Active Active Problems Problem Noted Date Diagnosed Date Insomnia 01/03/2022 Overview (10/17/2024): Follows with neurology (gentry) 6 mth basis. Tension headache 01/03/2022 Aortic stenosis 10/18/2021 Overview (10/17/2024): Follows with [facility] Associates on a yearly [...] Care Team Description 06/30/2025 Telephone Adult Medicine [address] [phone] Enrique Diaz MD 06/29/2025 1:15 PM EDT Office Visit Adult Medicine [address] [phone] Enrique Diaz MD Primary hypertension (Primary Dx); Pure hypercholesterolemia; Encounter for long-term (current) use of medications; Laceration of left index finger without foreign body without damage to nail, subsequent encounter from Last 3 Months Immunizations Immunization Administration Dates Next Due Influenza Quadravalent, MDCK , 0.5ml, with preservative (Flucelvax) 6mo and older 09/18/2017 Influenza trivalent, 0.5mL ( Fluad) 65yo and older 08/23/2024,09/09/2023,09/18/2022,07/27,09/26/2019 Influenza trivalent, 0.5mL ( Fluzone High-dose) 65yo and older 07/25/2025 Influenza trivalent, 0.5mL, preservative free (Fluarix; FluLaval; [...] Contact Info) Description 09/13/2025 1:00 PM EDT Hospital Encounter [facility] [address] [place] [phone] Nedra Cavazos MD [address] [address] 01/02/2026 1:30 PM EST Office Visit Adult Medicine [address] [phone] Desirae Kessler PA [address] [place] [address] Health Maintenance Due Date Last Done Comments Falls Risk Assessment 10/24/2022 Medicare Annual Wellness Visit 10/24/2022 Social Influencers of Health Screening 10/24/2022 Depression Screening 11/16/2024 06/16/2024 COVID-19 Vaccine ( season) 2025 09/18/2022, 04/02/2022, 09/09/2021, Additional history exists Hypertension/CHF/CAD Annual BMP Blood [...] 12/25/2020, 09/26/2019 Zoster Vaccines Completed 04/17/2023, 05/27/2022 Influenza Vaccine Completed 07/25/2025, , 09/09/2023, Additional history exists HIB Vaccines Aged Out No longer eligi [...] on patient's age to complete this topic Goals Goal Patient Goal Type Associated Problems Recent Progress Patient-Stated? Author Autogenerat ed Goal Care Plan Autogenerated Problem No Annette Hutchinson Procedures Procedure Name Priority Date/Time Associated Diagnosis [...] mmol/L LAB CHEMISTRY METHOD 06/30/2025 2:26 PM [facility] Potassium 3.2(L) 3.5 - 5.5 mmol/L LAB CHEMISTRY METHOD 06/30/2025 2:26 PM [facility] Chloride 92(L) 96 - 110 mmol/L LAB CHEMISTRY METHOD 06/30/2025 2:26 PM [facility] CO2 31 21 - 32 mmol/L LAB CHEMISTRY METHOD 06/30/2025 2:26 PM [facility] Anion Gap 7 3 - 11 LAB CHEMISTRY METHOD 06/30/2025 2:26 PM [facility] Glucose 73 70 - 100 mg/dL LAB CHEMISTRY METHOD 06/30/2025 2:26 PM [facility] BUN 11 5 - 25 mg/dL LAB CHEMISTRY METHOD 06/30/2025 2:26 PM [facility] Creatinine 1.14 0.70 - 1.30 mg/dL LAB CHEMISTRY METHOD 06/30/2025 2:26 PM [facility] eGFR 68 >=60 mL/min/1. 73m2 LAB CHEMISTRY METHOD 06/30/2025 2:26 PM EDT [facility] Comment:Calculation based on the Chronic Kidney Disease Epidemiology Collaboration (CKD-EPI) equation refit without adjustment for race. BUN/Creatinine Ratio 9.6 LAB CHEMISTRY METHOD 06/30/2025 2:26 PM EDT [facility] Calcium 9.7 8.5 - 10.5 mg/dL LAB CHEMISTRY METHOD 06/30/2025 2:26 PM EDT [facility] Blood Venous blood specimen / Unknown Venipuncture / Unknown 06/30/2025 11:09 AM EDT 06/30/2025 11:09 AM EDT us Enrique Diaz MD LAB BLOOD ORDERABLES Final Resu lt [facility] [address] [place] [address], * (ABNORMAL) Lipid panel with reflex to direct LDL (06/29/2025 1:30 PM EDT) Cholesterol 211(H) 0 - 200 mg/dL LAB CHEMISTRY METHOD 06/29/2025 5:16 PM EDT [facility] Triglycerides 233(H) 0 - 150 mg/dL LAB CHEMISTRY METHOD 06/29/2025 5:16 PM EDT [facility] HDL 57 >=40 mg/dL LAB CHEMISTRY METHOD 06/29/2025 5:16 PM EDT [facility] LDL Calculated 107(H) 0 - 100 mg/dL LAB CHEMISTRY METHOD 06/29/2025 5:16 PM EDT [facility] Comment:Estimated LDL Calcul ated using equation: Total cholesterol - HDL cholesterol - (Triglycerides/5) VLDL Cholesterol Fam 46.6 mg/dL LAB CHEMISTRY METHOD 06/29/2025 5:16 PM EDT [facility] Non HDL Chol. (LDL+VLDL) 154(H) <145 mg/dL LAB CHEMISTRY METHOD 06/29/2025 5:16 PM EDT [facility] Chol/HDL Ratio 3.7 0.0 - 4.4 LAB CHEMISTRY METHOD 06/29/2025 5:16 PM EDT [facility] Blood Venous blood specimen / Unknown Venipuncture / Unknown 06/29/2025 1:30 PM EDT 06/29/2025 1:30 PM EDT us Enrique Diaz MD LAB BLOOD ORDERABLES Final Resu lt [facility] [address] [place] [address], [place] [phone] * (ABNORMAL) Comprehensive metabolic panel (06/29/2025 1:30 PM EDT) Sodium 130(L) 133 - 145 mmol/L LAB CHEMISTRY METHOD 06/29/2025 5:16 PM [facility] Potassium 3.4(L) 3.5 - 5.5 mmol/L LAB CHEMISTRY METHOD 06/29/2025 5:16 PM [facility] Chloride 90(L) 96 - 110 mmol/L LAB CHEMISTRY METHOD 06/29/2025 5:16 PM [facility] CO2 34(H) 21 - 32 mmol/L LAB CHEMISTRY METHOD 06/29/2025 5:16 PM [facility] Anion Gap 6 3 - 11 LAB CHEMISTRY METHOD 06/29/2025 5:16 PM [facility] Glucose 89 70 - 100 mg/dL LAB CHEMISTRY METHOD 06/29/2025 5:16 PM [facility] BUN 12 5 - 25 mg/dL LAB CHEMISTRY METHOD 06/29/2025 5:16 PM [facility] Creatinine 0.98 0.70 - 1.30 mg/dL LAB CHEMISTRY METHOD 06/29/2025 5:16 PM T [facility] eGFR 82 >=60 mL/min/1. 73m2 LAB CHEMISTRY METHOD 06/29/2025 5:16 PM [facility] Comment:Calculation based on the Chronic Kidney Disease Epidemiology Collaboration (CKD-EPI) equation refit without adjustment for race. BUN/Creatinine Ratio 12.2 LAB CHEMISTRY METHOD 06/29/2025 5:16 PM [facility] Calcium 9.7 8.5 - 10.5 mg/dL LAB CHEMISTRY METHOD 06/29/2025 5:16 PM [facility] AST (SGOT) 20 10 - 42 unit/L LAB CHEMISTRY METHOD 06/29/2025 5:16 PM [facility] ALT (SGPT) 27 10 - 60 unit/L LAB CHEMISTRY METHOD 06/29/2025 5:16 PM [facility] Alkaline Phosphatase 78 42 - 121 unit/L LAB CHEMISTRY METHOD 06/29/2025 5:16 PM [facility] Total Protein 6.8 6.0 - 8.0 g/dL LAB CHEMISTRY METHOD 06/29/2025 5:16 PM [facility] Albumin 4.3 3.2 - 5.0 g/dL LAB CHEMISTRY METHOD 06/29/2025 5:16 PM [facility] Total Bilirubin 0.4 0.0 - 1.4 mg/dL LAB CHEMISTRY METHOD 06/29/2025 5:16 PM [facility] Blood Venous blood specimen / Unknown Venipuncture / Unknown 06/29/2025 1:30 PM EDT 06/29/2025 1:30 PM EDT us Enrique Diaz MD LAB BLOOD ORDERABLES Final Resu lt [facility] [address] [place] [address], * Depression Screening (06/16/2024) Pathologist [facility] Depression Screening Abstracted Historical Provider HEALTH MAINTENANCE Final Result * Colonoscopy (12/06/2019) Pathologist [facility] Colonoscopy Abstracted, no interpretation Anatomical Region Laterality Modality Other [facility] Provider HEALTH MAINTENANCE Final Result * Hepatitis C Screening (12/31/2013) Pathologist [facility] Hepatitis C Screening Abstracted [facility] Provider HEALTH MAINTENANCE Final Result from Last 3 Months or Most Recently Relevant to Health Maintenance Additional Health Concerns Active Problems Noted Date Diagnosed Date Autogenerated Problem 08/15/2025 Insurance MEDICARE [place]ICAID - [place] Care Teams Trailer Truck Driver Relationship Specialty Start Date End Date Enrique Diaz MD [place], [place] PCP - General Internal Medicine 09/28/15
--- OUTSIDE RECORDS SUMMARY | 2025-09-06 16:27 | XMS_ITS | Encounter Summary ---
Author Organization [employer] [facility] Address [address] [place] [address] Care Team Providers Care Adjunct Lecturer Name Role Phone Unavailable Primary Care Provider [...]
== END 2025-09-06 11:58 | disposition home or self-care (01) ==
LOC: HO.HSM 11:45
PROVIDERS: PCP Internal Medicine; Referring Provider Internal Medicine; Visit Provider Registered Nurse
DX: G44.209 Tension-type headache, unspecified, not intractable (principal); G47.00 Insomnia, unspecified
CPT/HCPCS: 99214

== ENCOUNTER → 2025-09-06 11:44 | Outpatient (BNVA) | payer MEDICARE, MEDICAID, SELFPAY | PROVIDERS: PCP Internal Medicine; Referring Provider Internal Medicine; Visit Provider Registered Nurse | DX: G44.209 Tension-type headache, unspecified, not intractable (principal); G47.00 Insomnia, unspecified | CPT/HCPCS: 99212 ==

== ENCOUNTER 2025-09-28 09:10 | Emergency (ER) | payer MEDICARE, MEDICAID, SELFPAY ==
--- NOTE | ~2025-09-28 | CT_ITS ---
EXAMINATION: CT ABDOMEN AND PELVIS WITH CONTRAST CLINICAL INFORMATION: Upper abdominal pain, nausea. COMPARISON: None available. TECHNIQUE: Multidetector volumetric images were obtained from the superior aspect of the liver through the pubic symphysis following administration 85 mL of Omnipaque 350 intravenous contrast. Sagittal and coronal reformatted images were obtained on the technologist's workstation. Oral contrast: No This CT examination was performed using dose optimization techniques as appropriate, variously including the following: *Automated exposure control *Adjustment of mA and/or kV according to patient size (this includes techniques or standardized protocols for targeted exams where dose is matched to indication/reason for exam; i.e. extremities or head) *Use of iterative reconstruction technique FINDINGS: LUNG BASES: Mild bibasilar atelectasis LIVER, GALLBLADDER, AND BILIARY TREE: Right lobe measures 17.1 cm.. Small hypodensity adjacent to the falciform ligament probably reflecting fatty infiltration. No focal hepatic lesion or biliary ductal dilatation is present. Gallbladder is partially distended. No radiopaque calculi. No inflammatory changes identified. CBD is within normal limits. PANCREAS: Unremarkable. No acute inflammatory changes. SPLEEN: Unremarkable. ADRENAL GLANDS: Unremarkable. KIDNEYS AND URETERS: Right renal upper pole 3 cm cyst. No renal calculi. Mild bilateral extrarenal pelvis. No ureteral calculi. BLADDER: Fluid-filled. No wall thickening. Small left-sided bladder diverticulum. GASTROINTESTINAL TRACT: Stomach is limited contents limiting evaluation. Nonobstructive bowel gas pattern. Left hemicolon diverticulosis. No findings suggest diverticulitis. Portion of the large colon is nondistended. The appendix appears within normal limits. No periappendiceal inflammatory changes identified. Peritoneum: No free fluid. No free air. No significant mesenteric inflammatory changes seen. ABDOMINAL WALL: No significant hernia is appreciated. LYMPH NODES: No pathologically enlarged lymph nodes. VASCULAR: No abdominal aortic aneurysmal dilatation. Extensive vascular calcification seen.. PELVIC VISCERA: Enlarged prostate measuring 5.9 cm, with foci of calcification. Seminal vesicles appear within normal limits. OSSEOUS STRUCTURES: No destructive bony process. CT/CT abdomen pelvis w IV con IMPRESSION: * No acute intra-abdominal findings identified to explain the patient's symptoms. * Hepatomegaly. * [Left colonic diverticulosis without evidence of diverticulitis. * Enlarged prostate. Fleischner guidelines were followed. Electronically signed by: Elan Gasca MD 09/28/2025 12:53 PM EST
[2025-09-28 09:20] VITALS: BP 137/83; PULSE 96; RESP 18; TEMP 36.7; O2SAT 98; BMI 26.2
[2025-09-28 09:50] LABS: MANUAL DIFF FLAG NO
[2025-09-28 09:52] LABS: Hematocrit 41.8 % (42.0-52.0); Hemoglobin 14.4 g/dl (14.0-18.0); Imm Gran Abs Auto 0.03 X10*3/uL (0.00-0.03); Imm Gran Pct Auto 0.4 % (0.0-0.4); Lymphocytes Absolute Auto 1.8 X10*3/uL (1.2-4.9); Mean Corpuscular HGB Conc 34.4 g/dl (31.0-36.0); Mean Corpuscular Hemoglobin 30.1 pg (27.0-33.0); Mean Corpuscular Volume 87.3 fL (80.0-98.0); NRBC Abs Auto 0.000 X10*3/uL (0.0-0.012); NRBC Pct Auto 0.0 /100WBC (0.0-0.2); Platelet Count 271 X10*3/uL (160-400); Red Blood Count 4.79 X10*6/uL (4.60-5.80); White Blood Count 7.0 X10*3/uL (4.8-10.8)
[2025-09-28 09:53] LABS: Appearance Urine Clear; Glucose Urine UA Negative (Negative); PH 8.5 (5.0-9.0); Specific Gravity - Urine 1.010 (1.005-1.025)
[2025-09-28 10:31] LABS: Alanine Aminotransferase 15 U/L (0-40); Albumin Level 4.3 g/dL (3.5-5.0); Alkaline Phosphatase 62 U/L (39-117); Anion Gap 14 (12-20); Aspartate Amino Transferase 20 U/L (5-37); Blood Urea Nitrogen 13 mg/dL (9-16); Calcium 9.4 mg/dL (8.4-10.2); Carbon Dioxide 32 mmol/L (22-29); Chloride 94 mmol/L (96-108); Creatinine Clr Calc Pharmacy 52.8; Estimated Glomerular Filt Rate > 60; Potassium 2.9 mmol/L (3.3-5.1); Sodium 137 mmol/L (135-145); Total Protein 6.8 g/dL (6.5-8.0)
--- NOTE | 2025-09-28 10:35 | ED_ITS ---
HPI - Abdominal Pain General Chief Complaint: Abdominal Pain Stated Complaint: upper abd pain Time Seen by Provider: 09/28/25 10:00 Source: patient, RN notes reviewed and old records reviewed Mode of arrival: ambulatory History of Present Illness ED Provider: Whitley Gracia PA-C HPI narrative: 70-year-old Prydeinig-speaking male with no significant past medical history presenting to the ED complaining of epigastric / periumbilical abdominal pain x2 days with associated nausea. Admits pain is intermittent. Denies fever, chills, diarrhea, vomiting, dysuria /hematuria, chest pain /shortness of breath Related Data Home Medications ?Medication ?Instructions ?Recorded ?Confirmed atorvastatin 40 mg tablet 40 mg PO DAILY 06/16/25 chlorthalidone 50 mg tablet 50 mg PO DAILY 06/16/25 latanoprost 0.005 % eye drops 1 drp ophthalmic-Right B EDTIME 06/16/25 lisinopril 30 mg tablet 30 mg PO DAILY 06/16/25 triamcinolone acetonide 0.1 % topical BID 06/16/25 topical ointment Previous Rx's ?Medication ?Instructions ?Recorded kpeeacmpom-qpraxhtskeqak-tunsguvi 1 tab PO Q8H PRN hea dache 30 days 09/06/25 50 mg-325 mg-40 mg tablet #20 tabs zolpidem 5 mg tablet 5 mg PO BEDTIME PRN sleep 30 days 09/06/25 #30 tabs aluminum-mag hydroxide-simethicone 5 ml PO 5XD PRN dys pepsia #30 mL 09/28/25 200 mg-200 mg-20 mg/5 mL oral susp (Maalox Advanced) famotidine 20 mg tablet (Pepcid) 20 mg PO DAILY #14 ta bs 09/28/25 potassium chloride 20 mEq oral 20 meq PO DAILY 2 weeks #14 ea 09/28/25 packet Allergies Allergy/AdvReac Type Severity Reaction Status Date / Time No Known Allergies Allergy Verified 09/28/25 09:22 Review of Systems Review of Systems Yes all other systems are reviewed and are negative Constitutional: Reports as per HPI [facility] Past Medical History Attestation statement: The following information was validated with the patient. Source: old records reviewed Medical History Prostatism Social History Social History Alcohol intake: former Patient Tobacco Use Status: Never used Tobacco Current occupation: rt handed Physical Exam ED Vital Signs: Vital Signs - 24 hr 09/28/25 09:20 09/28/25 12:02 09/28/25 14:19 Temperature 98.0 F 98.1 F 97.0 F Pulse Rate 96 76 71 Respiratory Rate 18 16 14 Blood Pressure 137/83 121/71 116/76 Pulse Oximetry 98 96 97 Oxygen Delivery Method Room Air Room Air Room Air 09/28/25 14:29 Temperature 97.0 F Pulse Rate 71 Respiratory Rate 14 Blood Pressure 116/76 Pulse Oximetry 97 Oxygen Delivery Method Room Air BMI result Body Mass Index 26.2 Const General: cooperative, healthy appearing and no acute distress Orientation/consciousness: patient oriented x3 Limitations: no limitations HENMT Head: Yes normal to inspection and Yes atraumatic Ears: hearing grossly normal bilaterally General nose exam: Normal external nose present Face and sinus: Yes normal facial exam Eyes General: appearance normal, both eyes and all related structures EOM: EOMs intact bilaterally Neck Neck: Yes normal visual inspection and Yes no meningeal signs Resp Effort & Inspection: normal respiratory effort and no respiratory distress Auscultation: clear to auscultation bilaterally Cardio Rate: regular rate Heart sounds: S1 normal heart sound present and S2 normal heart sound present GI Inspection: Yes normal to inspection Palpation (GI): Soft to palpation, Tenderness to palpation present (GI) in the epigastrum; with no rebound tenderness, no guarding and not rigid General: Yes no CVA tenderness Back/Spine/Pelvis Back: no CVA tenderness Skin Rashes: no rashes Wounds: no wounds Neuro General: patient oriented x3, tone normal and no meningeal signs Cranial nerves: Yes CN's II-XII intact bilaterally Gait exam (Neuro): Normal gait present Extrem General: Yes normal to inspection Course Course Course Narrative: -1222-- no leukocytosis. Potassium low at 2.9 > p.o. repletion ordered. > likely from chlorthalidone -Troponin 10.7 > will obtain repeat -UA negative -1357-- repeat troponin without rise. Mi unlikely. > repeat potassium with slight improvement to 3.0 CT abdomen pelvis w IV con IMPRESSION: * No acute intra-abdominal findings identified to explain the patient's symptoms. * Hepatomegaly. * [Left colonic diverticulosis without evidence of diverticulitis. * Enlarged prostate. Fleischner guidelines were followed. > On re-evaluation patient reports symptomatic improvement. Denies pain at present. Feels comfortable for discharge home at this time with close PCP /GI follow-up - patient given additional p.o. potassium repletion prior to discharge. Will DC home with potassium chloride and recommended repeat outpatient labs in 3-5 days Results discussed with patient including worrisome signs and symptoms and strict return precautions, and when to return to the emergency department. They verbalized understanding and feel safe for discharge at this time. Medical Decision Making Medical Decision Making MDM Narrative: 70-year-old Prydeinig-speaking male with no significant past medical history presenting to the ED complaining of epigastric / periumbilical abdominal pain x2 days with associated nausea. on exam vital signs stable, NAD, appears uncomfortable, abdomen is soft with epigastric tenderness. No rebound/ guarding. Lungs CTA. Concern for pancreatitis vs ? cholecystitis /lithiasis vs PUD/gastritis. Lower suspicion for appendicitis / diverticulitis. Rule out atypical ACS. Lower suspicion for dissection or SBO/ bowel perforation Plan: EKG, labs, CT AP, pain control, UA, re-evaluate Please refer to course for remaining clinical decision making, interpretation of labs/imaging results, and discussions with consultants and/or family members. Differential Diagnosis Differential Diagnoses: The differential diagnosis associated with the presentation includes As above Admission/Observation Consideration of admission/observation: Escalation of care including admission/observation considered Lab Data [facility] Lab Attestation statement: I reviewed the patient's lab results. 09/28/25 09:45 09/28/25 12:53 Labs: Lab Results 09/28/25 09/28/25 09/28/25 Range/Units 09:43 09:45 12:53 WBC 7.0 (4.8-10.8) X10*3/uL RBC 4.79 (4.60-5.80) X10*6/uL Hgb 14.4 (14.0-18.0) g/dl Hct 41.8 L (42.0-52.0) % MCV 87.3 (80.0-98.0) fL MCH 30.1 (27.0-33.0) pg MCHC 34.4 (31.0-36.0) g/dl RDW 12.9 (11.0-16.0) % Plt Count 271 (160-400) X10*3/uL MPV 8.9 L (9.4-12.4) fL Immature Gran % (Auto) 0.4 (0.0-0.4) % Neut % (Auto) 60.2 (45-73) % Lymph % (Auto) 25.4 (20-40) % [place] % (Auto) 13.0 H (2-11) % Eos % (Auto) 0.6 (0-4) % Baso % (Auto) 0.4 (0-2) % Lymph # (Auto) 1.8 (1.2-4.9) X10*3/uL [place] # (Auto) 0.9 (0.1-1.2) X10*3/uL Eos # (Auto) 0.0 (0.0-0.4) X10*3/uL Baso # (Auto) 0.0 (0.0-0.2) X10*3/uL Abs Immat Gran (auto) 0.03 (0.00-0.03) X10*3/uL Absolute Neuts (auto) 4.2 (2.0-8.3) x10*3/uL Absolute Nucleated RBC 0.000 (0.0-0.012) X10*3/uL Nucleated RBC % (auto) 0.0 (0.0-0.2) /100WBC Sodium 137 137 (135-145) mmol/L Potassium 2.9 L* 3.0 L (3.3-5.1) mmol/L Chloride 94 L 99 (96-108) mmol/L Carbon Dioxide 32 H 31 H (22-29) mmol/L Anion Gap 14 10 L (12-20) BUN 13 12 (9-16) mg/dL Creatinine 1.14 0.90 (0.5-1.4) mg/dL Estim Creat Clear Calc 52.8 66.9 Estimated GFR > 60 > 60 Random Glucose 110 94 (60-115) mg/dL Calcium 9.4 8.5 D (8.4-10.2) mg/dL Magnesium 2.1 (1.6-2.6) mg/dL Total Bilirubin 0.3 (0.0-1.0) mg/dL Direct Bilirubin 0.1 (0.0-0.5) mg/dL AST 20 (5-37) U/L ALT 15 (0-40) U/L Alkaline Phosphatase 62 (39-117) U/L Troponin I High Sens 10.7 10.3 (<3.5-35.0) ng/L Total Protein 6.8 (6.5-8.0) g/dL Albumin 4.3 (3.5-5.0) g/dL Lipase 33 (8-78) U/L Urine Color Straw Urine Appearance Clear Urine pH 8.5 (5.0-9.0) Ur Specific [place] 1.010 (1.005-1.025) Urine Protein Negative (Neg-Trace) mg/dL Urine Glucose (UA) Negative (Negative) mg/dL Urine Ketones Negative (Negative) mg/dL Urine Blood Negative (Negative) Urine Nitrite Negative (Negative) Ur Leukocyte Esterase Negative (Negative) Independent Interpretation I performed an independent interpretation of an: EKG ( my interpretation: EKG normal sinus rhythm rate of 78. MD interval 132. No significant change when compared to prior. No STEMI) and CT Scan Radiology Impression Discussion of test interpretation with radiology: I have reviewed the radiologist's reading. External Record Review External record reviewed: Inpatient record, Office record, Outpatient record, Prior outpatient labs, Prior outpatient radiology, Primary care record and Outside ED record Tests considered The following testing was considered but not selected: As above Prescription Management I considered prescription management with: Pain Medication Chronic Conditions Patient?s care impacted by: Hypertension and Other Social Determinants Patient?s care significantly limited by Social Determinants of Health including: Other Social Determinant of Health Medications Administered Discontinued Medications Generic Name Dose Route Start Last Admin Trade Name Freq PRN Reason Stop Dose Admin Al Hydroxide/Mg Hydroxide 30 ml 09/28/25 10:45 09/28/25 10:56 Magnesium Hydrox/Alum Hydrox 30 Ml Oral.Susp PO 09/28/25 10:46 30 ml ONCE ONE Administration Famotidine 20 mg 09/28/25 10:45 09/28/25 10:56 Famotidine/Pf 20 Mg/2 Ml Vial IVPUSH 09/28/25 10:46 20 mg ONCE ONE Administration Sodium Chloride 1,000 mls @ 999 mls/hr 09/28/25 10:45 09/28/25 12:02 Ns IV 09/28/25 11:45 Infused .Q1H1M TAMIKA Infusion Iohexol 100 ml 09/28/25 12:28 09/28/25 12:28 Iohexol 350 Mg/Ml 100 Ml Infus..Btl IV 09/28/25 12:29 85 ml ONCE ONE Administration Morphine Sulfate 4 mg 09/28/25 10:45 09/28/25 10:56 Morphine Sulfate 4 Mg/Ml Cartridge IVPUSH 09/28/25 10:46 4 mg ONCE ONE Administration Protocol Potassium Chloride 60 meq 09/28/25 10:32 09/28/25 10:56 Potassium Chloride Er 20 Meq Tab.Er.Prt PO 09/28/25 10:33 60 meq ONCE ONE Administration Potassium Chloride 60 meq 09/28/25 13:54 09/28/25 13:57 Potassium Chloride Er 20 Meq Tab.Er.Prt PO 09/28/25 13:55 60 meq ONCE ONE Administration Discharge Plan Discharge Clinical Impression: Epigastric abdominal pain, Hypokalemia Patient Disposition: Home, Self-Care Instructions: Hypokalemia (ED), Abdominal Pain (ED) Additional Instructions: your blood work was notable for a low potassium. Please start taking potassium repletion as prescribed YOU SHOULD HAVE REPEAT OUTPATIENT LABS IN 3-5 DAYS Maalox and Pepcid will help with acid reduction Please follow up with your primary care doctor as well as Gastroenterology. Call to make an appointment if her symptoms persist or worsen you have constant worsening pain, nausea, vomiting, diarrhea or fever return to the ED Prescriptions: New potassium chloride 20 mEq packet 20 meq PO DAILY 14 Days Qty: 14 0RF famotidine [Pepcid] 20 mg tablet 20 mg PO DAILY Qty: 14 0RF alum-mag hydroxide-simeth [Maalox Advanced] 200-200-20 mg/5 mL suspension 5 ml PO 5XD PRN (Reason: dyspepsia) Qty: 30 0RF Rx Instructions: administer between meals and at bedtime No Action latanoprost 0.005 % drops 1 drp ophthalmic-Right BEDTIME atorvastatin 40 mg tablet 40 mg PO DAILY chlorthalidone 50 mg tablet 50 mg PO DAILY triamcinolone acetonide 0.1 % ointment topical BID lisinopril 30 mg tablet 30 mg PO DAILY zolpidem 5 mg tablet 5 mg PO BEDTIME PRN (Reason: sleep) 30 Days Qty: 30 5RF rijmcbmhfc-scazrivehyjgz-whdn 50-325-40 mg tablet 1 tab PO Q8H PRN (Reason: headache) 30 Days Qty: 20 5RF Referrals: [facility] [Provider Group, Gastroenterology] - 1 week Enrique Diaz III, MD [Primary Care Provider, Medical] - 2 days Interventions: ED Discharge Assessment Last Done: 09/28/25 14:29 Discharge Date/Time: 09/28/25 14:47 Print Language: Prydeinig
[2025-09-28] MEDS: Magnesium Hydrox/Alum Hydrox 30 ML ORAL.SUSP PO (10:56)
[2025-09-28] MEDS: Potassium Chloride ER 20 MEQ TAB.ER.PRT 60 MEQ PO ×2 (10:56→13:57)
--- OUTSIDE RECORDS SUMMARY | 2025-09-28 11:13 | XMS_ITS | Encounter Summary ---
Author Organization [facility] Address [address] [place] [address] Care Team Providers Care Metal Coater Name Role Phone Enrique Diaz MD Primary Care Provider [phone] Reason for Visit * Reason Comments E-prescribe Rx Request Encounter Details Date Type Department Care Team Description 03/04/2019 Refill Dermatology - [address] [phone] Chrissy Oquendo PA-C E-prescribe Rx Request Social History Tobacco Use Types Packs/Day Years Used Date Smoking Tobacco: Never Cigarettes 1 Smokeless Tobacco: Never Alcohol Use Standard Drinks/Week Comments No 0 (1 standard drink = 0.6 oz pur e alcohol) Sex Assigned at Date Recorded Not on file Job Start Date Occupation Industry Not on file Not on file Not on file documented as of this encounter Miscellaneous Notes * Telephone Encounter - Chrissy Oquendo - 03/07/2019 12:58 PM EDT Approve refill of betamethasone dipropionate augmented gel 0.05%. * Telephone Encounter - Jess Zuluaga MA - 03/04/2019 4:12 PM EDT AMISHA 01/25/18 no f/u scheduled documented in this encounter Plan of Treatment Not on file documented as of this encounter Visit Diagnoses Not on filedocumented in this encounter Care Teams Metal Coater Relationship Specialty Start Date End Date Enrique Diaz MD [address] [place] [id number] PCP - General Internal Medicine 09/28/15 documented as of this encounter
--- OUTSIDE RECORDS SUMMARY | 2025-09-28 11:13 | XMS_ITS | Encounter Summary ---
Author Organization [facility] Address [address] [place] [address] Care Team Providers Care C Java Developer Name Role Phone Enrique Diaz MD Primary Care Provider [phone] Encounter Details Date Type Department Care Team Description 2021 Telephone Adult Medicine [address] [address] Enrique Diaz MD [address] [place] [phone] Social History Tobacco Use Types Packs/Day Years Used Date Smoking Tobacco: Never Cigarettes 1 Smokeless Tobacco: Never Alcohol Use Standard Drinks/Week Comments No 0 (1 standard drink = 0.6 oz pur e alcohol) Sex Assigned at Date Recorded Not on file Job Start Date Occupation Industry Not on file Not on file Not on file COVID-19 Exposure Response Date Recorded In the last month, have you been in contact with someone who was confirmed or suspected to have Coronavirus / COVID-19? No / Unsure 03/15/2021 10:19 AM EDT documented as of this encounter Plan of Treatment Not on file documented as of this encounter Visit Diagnoses Not on filedocumented in this encounter Care Teams C Java Developer Relationship Specialty Start Date End Date Enrique Diaz MD [address] [place] [phone] PCP - General Internal Medicine 09/28/15 documented as of this encounter
--- OUTSIDE RECORDS SUMMARY | 2025-09-28 11:13 | XMS_ITS | Encounter Summary ---
Author Organization [facility] Address [address] [place] [address] Care Team Providers Care Human Services Assistant Name Role Phone Enrique Diaz MD Primary Care Provider [phone] Encounter Details Date Type Department Care Team Description 12/04/2020 Cooler Worker Report Medical Records [address] [place] [address] Yajaira Hanna MD Social History Tobacco Use Types Packs/Day [...] on filedocumented in this encounter Care Teams Human Services Assistant Relationship Specialty Start Date End Date Enrique Diaz MD [address] [place], [place] [phone] PCP - General Internal Medicine 09/28/15 documented as of this encounter
--- OUTSIDE RECORDS SUMMARY | 2025-09-28 11:13 | XMS_ITS | Encounter Summary ---
Author Organization [facility] Address [address] [place] [address] Care Team Providers Care Enterprise Project Manager Name Role Phone Name, Darryl BANUELOS Primary Care Provider Enrique Grijalva MD Primary Care Provider [phone] Encounter Details Date Type Department Care Team Description 09/27/2015 Powder Guard Report Medical Records [address] [place] [address] Jovon Bruce MD Social History Tobacco Use Types Packs/Day [...] on filedocumented in this encounter Care Teams Enterprise Project Manager Relationship Specialty Start Date End Date Name, MD Darryl PCP - General 08/06/11 09/27/15 Enrique Diaz MD [address] [place] [id number] PCP - General Internal Medicine 09/28/15 documented as of this encounter
--- OUTSIDE RECORDS SUMMARY | 2025-09-28 11:13 | XMS_ITS | Encounter Summary ---
Author Organization [facility] Address [address] [place] [address] Care Team Providers Care Assistant Professor In Family Studies Name Role Phone Name, Darryl BANUELOS Primary Care Provider Enrique Grijalva MD Primary Care Provider [phone] Encounter Details Date Type Department Care Team Description 01/23/2015 Horticultural Specialty Grower Inside Report Medical Records [address] [place] [address] Yajaira Hanna MD Social History Tobacco Use [...] on filedocumented in this encounter Care Teams Assistant Professor In Family Studies Relationship Specialty Start Date End Date Name, MD Darryl PCP - General 08/06/11 09/27/15 Enrique Diaz MD [address] [place], [place] [phone] PCP - General Internal Medicine 09/28/15 documented as of this encounter
--- OUTSIDE RECORDS SUMMARY | 2025-09-28 11:13 | XMS_ITS | Encounter Summary ---
Author Organization [facility] Address [address] [place] [address] Care Team Providers Care Firepot Operator And Tender Name Role Phone Enrique Diaz MD Primary Care Provider [phone] Encounter Details Date Type Department Care Team Description 03/15/2019 Grove Worker Report Medical Records [address] [place] [address] Yajaira Hanna MD Social History Tobacco Use [...] on filedocumented in this encounter Care Teams Firepot Operator And Tender Relationship Specialty Start Date End Date Enrique Diaz MD [address] [place], [place] [phone] PCP - General Internal Medicine 09/28/15 documented as of this encounter
--- OUTSIDE RECORDS SUMMARY | 2025-09-28 11:13 | XMS_ITS | Encounter Summary ---
Author Organization [facility] Address [address] [place] [address] Care Team Providers Care Customer Equipment Engineer Name Role Phone Name, Darryl BANUELOS Primary Care Provider Enrique Grijalva MD Primary Care Provider [phone] Encounter Details Date Type Department Care Team Description 05/01/2015 Outpatient Case Manager Report Medical Records [address] [place] [address] Osiel Cross MD Social History Tobacco Use Types Packs/Day [...] on filedocumented in this encounter Care Teams Customer Equipment Engineer Relationship Specialty Start Date End Date Name, MD Darryl PCP - General 08/06/11 09/27/15 Enrique Diaz MD [address] [place] [id number] PCP - General Internal Medicine 09/28/15 documented as of this encounter
--- OUTSIDE RECORDS SUMMARY | 2025-09-28 11:13 | XMS_ITS | Encounter Summary ---
Author Organization [facility] Address [address] [place] [address] Care Team Providers Care Value Stream Manager Name Role Phone Enrique Diaz MD Primary Care Provider [phone] Encounter Details Date Type Department Care Team Description 05/05/2018 Armature Winder Repair Report Medical Records [address] [place] [address] Zara Foote PA-C Social History Tobacco Use Types Packs/Day Years [...] on filedocumented in this encounter Care Teams Value Stream Manager Relationship Specialty Start Date End Date Enrique Diaz MD [address] [place], [place] [phone] PCP - General Internal Medicine 09/28/15 documented as of this encounter
--- OUTSIDE RECORDS SUMMARY | 2025-09-28 11:13 | XMS_ITS | Encounter Summary ---
Author Organization [facility] Address [address] [place] [address] Care Team Providers Care Snow Maker Name Role Phone Enrique Diaz MD Primary Care Provider [phone] Encounter Details Date Type Department Care Team Description 07/15/2018 Tire Shop Mechanic Report Medical Records [address] [place] [address] Jovon Bruce MD Social History Tobacco Use [...] on filedocumented in this encounter Care Teams Snow Maker Relationship Specialty Start Date End Date Enrique Diaz MD [address] [place], [place] [phone] PCP - General Internal Medicine 09/28/15 documented as of this encounter
--- OUTSIDE RECORDS SUMMARY | 2025-09-28 11:13 | XMS_ITS | Encounter Summary ---
Author Organization [facility] Address [address] [place] [address] Care Team Providers Care Poly Packer And Heat Sealer Name Role Phone Name, Darryl BANUELOS Primary Care Provider Enrique Grijalva MD Primary Care Provider [phone] Encounter Details Date Type Department Care Team Description 03/22/2014 Cylinder Batcher Report Medical Records [address] [place] [address] Yajaira Hanna MD Social History Tobacco Use [...] on filedocumented in this encounter Care Teams Poly Packer And Heat Sealer Relationship Specialty Start Date End Date Name, MD Darryl PCP - General 08/06/11 09/27/15 Enrique Diaz MD [address] [place], [place] [phone] PCP - General Internal Medicine 09/28/15 documented as of this encounter
--- OUTSIDE RECORDS SUMMARY | 2025-09-28 11:13 | XMS_ITS | Encounter Summary ---
Author Organization [facility] Address [address] [place] [address] Care Team Providers Care Developer Programmer Name Role Phone Name, Darryl BANUELOS Primary Care Provider Enrique Grijalva MD Primary Care Provider [phone] Reason for Visit * Reason Onset Date Comments Faxed Refill 07/01/2013 Encounter Details Date Type Department Care Team Description 07/01/2013 Refill Adult Medicine [address] [address] Name, MD Darryl Faxed Refill Social History Tobacco Use Types Packs/Day Years [...] encounter Miscellaneous Notes * Telephone Encounter - Kari Flores - 07/01/2013 4:46 PM EDT Please specify a strength. Fax in poc bin documented in this encounter Plan of Treatment Not on file documented as of this encounter Visit Diagnoses Diagnosis Headache(784.0)- Primary Headache documented in this encounter Care Teams Developer Programmer Relationship Specialty Start Date End Date Name, MD Darryl PCP - General 08/06/11 09/27/15 Enrique Diaz MD [address] [place] [id number] PCP - General Internal Medicine 09/28/15 documented as of this encounter
--- OUTSIDE RECORDS SUMMARY | 2025-09-28 11:13 | XMS_ITS | Encounter Summary ---
Author Organization [facility] Address [address] [place] [address] Care Team Providers Care Head Grease Maker Name Role Phone Enrique Diaz MD Primary Care Provider [phone] Reason for Visit * Reason Onset Date Comments Faxed Refill 04/30/2021 Methotrexate 2.5 mg tablet 90 day supply Encounter Details Date Type Department Care Team Description 04/30/2021 Refill Dermatology - [address] [phone] Chrissy Oquendo PA-C Faxed Refill (Methotrexate 2.5mg tablet 90 day supply) Social History Tobacco Use Types Packs/Day Years [...] have Coronavirus / COVID-19? No / Unsure 04/29/2021 10:20 AM EDT documented as of this encounter Miscellaneous Notes * Telephone Encounter - Chrissy Oquendo - 04/30/2021 10:38 AM EDT Refused refill methotrexate as I need to see him in follow-up first, he may need a change in the dosing of methotrexate and we need to check a CBC with differential and CMP. He has an appointment May 02 which is in 2 days. * Telephone Encounter - Imelda Au M.A. - 04/30/2021 10:11 AM EDT AMISHA: 02/27/21 F/U:05/02/21 * Telephone Encounter - Chrissy Mas - 04/30/2021 9:36 AM EDT Patient would like script to be: E-PRESCRIBED/FAXED TO PHARMACY WHEN WAS THE PATIENT'S LAST APPOINTMENT IN ADULT MEDICINE? 02/27/2021 WHEN WAS THE LAST TIME THE PATIENT SAW THEIR PCP? Same as above Does patient have an upcoming appointment? Yes 05/02/2021 (THE MEDICATION REQUESTED IS ON THE MED LIST ABOVE) All of the medications requested were on the CURRENT MEDS list Did you check the Pharmacy information above?: YES Patient wants: 90 -day supply Is this a mail order prescription request ? NO If the refill is from a FAXED refill request what is the RX # listed on the fax? N/A Patients current insurance carrier is: [place] / [place] / Product Type: MEDICARE [id number] documented in this encounter Plan of Treatment Not on file documented as of this encounter Visit Diagnoses Not on filedocumented in this encounter Care Teams Head Grease Maker Relationship Specialty Start Date End Date Enrique Diaz MD [address] [place] [id number] PCP - General Internal Medicine 09/28/15 documented as of this encounter
--- OUTSIDE RECORDS SUMMARY | 2025-09-28 11:13 | XMS_ITS | Encounter Summary ---
Author Organization [facility] Address [address] [place] [address] Care Team Providers Care Spinner Hydraulic Name Role Phone Enrique Diaz MD Primary Care Provider [phone] Encounter Details Date Type Department Care Team Description 10/29/2020 Open Hearth Furnace Operator Helper Report Medical Records [address] [place] [address] Jayme Berg PA-C Social History Tobacco Use Types Packs/Day [...] on filedocumented in this encounter Care Teams Spinner Hydraulic Relationship Specialty Start Date End Date Enrique Diaz MD [address] [place], [place] [phone] PCP - General Internal Medicine 09/28/15 documented as of this encounter
--- OUTSIDE RECORDS SUMMARY | 2025-09-28 11:13 | XMS_ITS | Encounter Summary ---
Author Organization [facility] Address [address] [place] [address] Care Team Providers Care Plastic Jig And Fixture Builder Name Role Phone Name, Darryl BANUELOS Primary Care Provider Enrique Grijalva MD Primary Care Provider [phone] Encounter Details Date Type Department Care Team Description 04/04/2013 Demolitionist Report Medical Records [address] [place] [address] Johnathan Matrinez MD Social History Tobacco Use Types Packs/Day [...] on filedocumented in this encounter Care Teams Plastic Jig And Fixture Builder Relationship Specialty Start Date End Date Name, MD Darryl PCP - General 08/06/11 09/27/15 Enrique Diaz MD [address] [place] [address] PCP - General Internal Medicine 09/28/15 documented as of this encounter
--- OUTSIDE RECORDS SUMMARY | 2025-09-28 11:13 | XMS_ITS | Encounter Summary ---
Author Organization [facility] Address [address] [place] [address] Care Team Providers Care Stationary Boiler Fireman Name Role Phone Enrique Diaz MD Primary Care Provider [phone] Encounter Details Date Type Department Care Team Description 07/30/2020 Hospital Medical Records [address] [place] [address] Chelsey Alaniz MD [address] [place] [phone] Social History Tobacco Use Types Packs/Day Years [...] have Coronavirus / COVID-19? No / Unsure 07/27/2020 8:41 AM EDT documented as of this encounter Plan of Treatment Not on file documented as of this encounter Visit Diagnoses Not on filedocumented in this encounter Care Teams Stationary Boiler Fireman Relationship Specialty Start Date End Date Enrique Diaz MD [address] [place] [address] PCP - General Internal Medicine 09/28/15 documented as of this encounter
--- OUTSIDE RECORDS SUMMARY | 2025-09-28 11:13 | XMS_ITS | Encounter Summary ---
Author Organization [facility] Address [address] [place] [address] Care Team Providers Care Tubing Mill Operator Name Role Phone Enrique Diaz MD Primary Care Provider [phone] Encounter Details Date Type Department Care Team Description 03/11/2021 Outreach Rep Report Medical Records [address] [place] [address] Yash Blanco, YEISONC Social History Tobacco Use Types Packs/Day Years [...] have Coronavirus / COVID-19? No / Unsure 03/05/2021 2:24 PM EDT documented as of this encounter Plan of Treatment Not on file documented as of this encounter Visit Diagnoses Not on filedocumented in this encounter Care Teams Tubing Mill Operator Relationship Specialty Start Date End Date Enrique Diaz MD [address] [place] [address] PCP - General Internal Medicine 09/28/15 documented as of this encounter
--- OUTSIDE RECORDS SUMMARY | 2025-09-28 11:13 | XMS_ITS | Encounter Summary ---
Author Organization [facility] Address [address] [place] [address] Care Team Providers Care Director Music Name Role Phone Name, Darryl BANUELOS Primary Care Provider Enrique Grijalva MD Primary Care Provider [phone] Encounter Details Date Type Department Care Team Description 04/18/2013 Desk Maker Report Medical Records [address] [place] [address] Johnathan Martinez MD Social History Tobacco Use Types Packs/Day [...] on filedocumented in this encounter Care Teams Director Music Relationship Specialty Start Date End Date Name, MD Darryl PCP - General 08/06/11 09/27/15 Enrique Diaz MD [address] [place] [phone] PCP - General Internal Medicine 09/28/15 documented as of this encounter
--- OUTSIDE RECORDS SUMMARY | 2025-09-28 11:13 | XMS_ITS | Encounter Summary ---
Author Organization [facility] Address [address] [place] [address] Care Team Providers Care Flagger Name Role Phone Enrique Diaz MD Primary Care Provider [phone] Encounter Details Date Type Department Care Team Description 12/21/2023 Orders Only Bariatric Surgery - [place] [address] [facility] [address] [place] [phone] Chelsey Alaniz MD [address] [facility] [address] [place] [address] Left groin pain; Hx of inguinal hernia repair Social History Tobacco Use Types Packs/Day Years [...] on file documented as of this encounter Procedures Procedure Name Priority Date/Time Associated Diagnosis Comments US LMTD JOINT/OTH NONVASC XTR STRUX R-T W/IMG Routine 12/08/2023 Left groin pain Hx of inguinal hernia repair documented in this encounter Results * US LMTD JOINT/OTH NONVASC XTR STRUX R-T W/IMG (12/08/2023) 12/08/2023 Chelsey Alaniz MD ULTRASOUND Performing Organization Address City/State/[facility] Co de Phone Number [facility] [address] [facility] documented in this encounter Visit Diagnoses Diagnosis Left groin pain Abdominal pain, left lower quadrant Hx of inguinal hernia repair Personal history of surgery to other organs documented in this encounter Care Teams Flagger Relationship Specialty Start Date End Date Enrique Diaz MD [address] [place] [address] PCP - General Internal Medicine 09/28/15 documented as of this encounter
--- OUTSIDE RECORDS SUMMARY | 2025-09-28 11:13 | XMS_ITS | Encounter Summary ---
Author Organization [facility] Address [address] [place] [address] Care Team Providers Care Bean Dumper Name Role Phone Name, Darryl BANUELOS Primary Care Provider Enrique Grijalva MD Primary Care Provider [phone] Encounter Details Date Type Department Care Team Description 09/05/2013 Back Roll Lathe Operator Report Medical Records [address] [place] [address] Johnathan Martinez MD Social History Tobacco Use [...] on filedocumented in this encounter Care Teams Bean Dumper Relationship Specialty Start Date End Date Name, MD Darryl PCP - General 08/06/11 09/27/15 Enrique Diaz MD [address] [place] [address] [phone] PCP - General Internal Medicine 09/28/15 documented as of this encounter
--- OUTSIDE RECORDS SUMMARY | 2025-09-28 11:13 | XMS_ITS | Encounter Summary ---
Author Organization [facility] Address [address] [place] [address] Care Team Providers Care Bobbin Sorter Name Role Phone Name, Darryl BANUELOS Primary Care Provider Enrique Grijalva MD Primary Care Provider [phone] Encounter Details Date Type Department Care Team Description 03/22/2013 Lard Mixer Report Medical Records [address] [place] [address] Johnathan Martinez MD Social History Tobacco Use [...] on filedocumented in this encounter Care Teams Bobbin Sorter Relationship Specialty Start Date End Date Name, MD Darryl PCP - General 08/06/11 09/27/15 Enrique Diaz MD [address] [place] [phone] PCP - General Internal Medicine 09/28/15 documented as of this encounter
--- OUTSIDE RECORDS SUMMARY | 2025-09-28 11:13 | XMS_ITS | Encounter Summary ---
Author Organization [facility] Address [address] [place] [address] Care Team Providers Care Commercial Reporter Name Role Phone Enrique Diaz MD Primary Care Provider [phone] Encounter Details Date Type Department Care Team Description 01/19/2018 Hospital Medical Records [address] [place] [address] Mayo Salazar Social History Tobacco Use Types Packs/Day Years [...] on filedocumented in this encounter Care Teams Commercial Reporter Relationship Specialty Start Date End Date Enrique Diaz MD [address] [place], [place] [phone] PCP - General Internal Medicine 09/28/15 documented as of this encounter
--- OUTSIDE RECORDS SUMMARY | 2025-09-28 11:13 | XMS_ITS | Encounter Summary ---
Author Organization [facility] Address [address] [place] [address] Care Team Providers Care Brain Surgeon Name Role Phone Enrique Diaz MD Primary Care Provider [phone] Encounter Details Date Type Department Care Team Description 09/15/2017 Sleep Technologist Report Medical Records [address] [place] [address] Yajaira Hanna MD Social History Tobacco Use [...] on filedocumented in this encounter Care Teams Brain Surgeon Relationship Specialty Start Date End Date Enrique Diaz MD [address] [place], [place] [phone] PCP - General Internal Medicine 09/28/15 documented as of this encounter
--- OUTSIDE RECORDS SUMMARY | 2025-09-28 11:13 | XMS_ITS | Encounter Summary ---
Author Organization [facility] Address [address] [place] [address] Care Team Providers Care Oracle Sql Developer Name Role Phone Name, Darryl BANUELOS Primary Care Provider Enrique Grijalva MD Primary Care Provider [phone] Encounter Details Date Type Department Care Team Description 09/21/2012 Licensed Loan Officer Report Medical Records [address] [place] [address] Johnathan Martinez MD Social History Tobacco Use [...] on filedocumented in this encounter Care Teams Oracle Sql Developer Relationship Specialty Start Date End Date Name, MD Darryl PCP - General 08/06/11 09/27/15 Enrique Diaz MD [address] [place] [address] PCP - General Internal Medicine 09/28/15 documented as of this encounter
--- OUTSIDE RECORDS SUMMARY | 2025-09-28 11:13 | XMS_ITS | Encounter Summary ---
Author Organization [facility] Address [address] [place] [address] Care Team Providers Care Supervisor Drawing Name Role Phone Name, Darryl BANUELOS Primary Care Provider Enrique Grijalva MD Primary Care Provider [phone] Encounter Details Date Type Department Care Team Description 08/02/2015 Court Registry Officer Report Medical Records [address] [place] [address] Yajaira Hanna MD Social History Tobacco Use [...] on filedocumented in this encounter Care Teams Supervisor Drawing Relationship Specialty Start Date End Date Name, MD Darryl PCP - General 08/06/11 09/27/15 Enrique Diaz MD [address] [place], [place] [phone] PCP - General Internal Medicine 09/28/15 documented as of this encounter
--- OUTSIDE RECORDS SUMMARY | 2025-09-28 11:13 | XMS_ITS | Encounter Summary ---
Author Organization [facility] Address [address] [place] [address] Care Team Providers Care Help Desk Rep Name Role Phone Enrique Diaz MD Primary Care Provider [phone] Encounter Details Date Type Department Care Team Description 01/31/2019 Eradicator Report Medical Records [address] [place] [address] Aleksandr Sanchez Social History Tobacco Use Types Packs/Day Years [...] on filedocumented in this encounter Care Teams Help Desk Rep Relationship Specialty Start Date End Date Enrique Diaz MD [address] [place], [place] [phone] PCP - General Internal Medicine 09/28/15 documented as of this encounter
--- OUTSIDE RECORDS SUMMARY | 2025-09-28 11:13 | XMS_ITS | Encounter Summary ---
Author Organization [facility] Address [address] [place] [address] Care Team Providers Care Chief Ultrasound Technologist Name Role Phone Name, Darryl BANUELOS Primary Care Provider Enrique Grijalva MD Primary Care Provider [phone] Encounter Details Date Type Department Care Team Description 01/09/2015 Mobile Home Technician Report Medical Records [address] [place] [address] Johnathan Martinez MD Social History Tobacco Use [...] on filedocumented in this encounter Care Teams Chief Ultrasound Technologist Relationship Specialty Start Date End Date Name, MD Darryl PCP - General 08/06/11 09/27/15 Enrique Diaz MD [address] [place] [phone] PCP - General Internal Medicine 09/28/15 documented as of this encounter
--- OUTSIDE RECORDS SUMMARY | 2025-09-28 11:13 | XMS_ITS | Encounter Summary ---
Author Organization [facility] Address [address] [place] [address] Care Team Providers Care Ladies Attendant Name Role Phone Enrique Diaz MD Primary Care Provider [phone] Encounter Details Date Type Department Care Team Description 01/20/2019 Coating Machine Helper Report Medical Records [address] [place] [address] Aleksandr Sanchez Social History Tobacco Use Types [...] on filedocumented in this encounter Care Teams Ladies Attendant Relationship Specialty Start Date End Date Enrique Diaz MD [address] [place], [place] [phone] PCP - General Internal Medicine 09/28/15 documented as of this encounter
--- OUTSIDE RECORDS SUMMARY | 2025-09-28 11:13 | XMS_ITS | Encounter Summary ---
Author Organization [facility] Address [address] [place] [address] Care Team Providers Care Ship Design Teacher Name Role Phone Name, Darryl BANUELOS Primary Care Provider Enrique Grijalva MD Primary Care Provider [phone] Encounter Details Date Type Department Care Team Description 02/13/2015 Pi/Senior Research Associate Report Medical Records [address] [place] [address] Johnathan Martinez MD Social History Tobacco Use [...] on filedocumented in this encounter Care Teams Ship Design Teacher Relationship Specialty Start Date End Date Name, MD Darryl PCP - General 08/06/11 09/27/15 Enrique Diaz MD [address] [place] [address] PCP - General Internal Medicine 09/28/15 documented as of this encounter
--- OUTSIDE RECORDS SUMMARY | 2025-09-28 11:13 | XMS_ITS | Encounter Summary ---
Author Organization [facility] [facility] Address [address] [place] [address] Care Team Providers Care Milk Receiver Tank Truck Name Role Phone Enrique Diaz MD Primary Care Provider [phone] Encounter Details Date Type Department Care Team Description 12/22/2023 Orders Only Medical Records [address] [place] [address] Associates[facility] [address] [place] [address] Social History Tobacco Use Types Packs/Day Years [...] Procedure Name Priority Date/Time Associated Diagnosis Comments OUTSIDE NUCLEAR STRESS TEST Routine 11/27/2023 documented in this encounter Results * OUTSIDE NUCLEAR STRESS TEST (11/27/2023) [facility] CARDIOLOGY documented in this encounter Visit Diagnoses Not on filedocumented in this encounter Care Teams Milk Receiver Tank Truck Relationship Specialty Start Date End Date Enrique Diaz MD [address] [place] [address] PCP - General Internal Medicine 09/28/15 documented as of this encounter
--- OUTSIDE RECORDS SUMMARY | 2025-09-28 11:14 | XMS_ITS | Encounter Summary ---
Author Organization [facility] Address [address] [place] [address] Care Team Providers Care Horse Shoer Name Role Phone Name, Darryl BANUELOS Primary Care Provider Enrique Grijalva MD Primary Care Provider [phone] Encounter Details Date Type Department Care Team Description 07/31/2014 Escrow Closer Report Medical Records [address] [place] [address] Osiel Cross MD Social History Tobacco Use [...] on filedocumented in this encounter Care Teams Horse Shoer Relationship Specialty Start Date End Date Name, MD Darryl PCP - General 08/06/11 09/27/15 Enrique Diaz MD [address] [place] [address] [phone] PCP - General Internal Medicine 09/28/15 documented as of this encounter
--- OUTSIDE RECORDS SUMMARY | 2025-09-28 11:14 | XMS_ITS | Encounter Summary ---
Author Organization [facility] Address [address] [place] [address] Care Team Providers Care Mooner Name Role Phone Enrique Diaz MD Primary Care Provider [phone] Encounter Details Date Type Department Care Team Description 03/28/2019 Easement Man Report Medical Records [address] [place] [address] Mil Smith MD Social History Tobacco Use Types Packs/Day [...] on filedocumented in this encounter Care Teams Mooner Relationship Specialty Start Date End Date Enrique Diaz MD [address] [place], [place] [phone] PCP - General Internal Medicine 09/28/15 documented as of this encounter
--- OUTSIDE RECORDS SUMMARY | 2025-09-28 11:14 | XMS_ITS | Encounter Summary ---
Author Organization [facility] Address [address] [place] [address] Care Team Providers Care Steel Turner Name Role Phone Enrique Diaz MD Primary Care Provider [phone] Reason for Visit * Reason Onset Date Comments Faxed Refill 03/03/2022 Encounter Details Date Type Department Care Team Description 03/03/2022 Telephone Adult Medicine [address] [address] Enrique Diaz MD [address] [place] [address] Faxed Refill Social History Tobacco Use Types [...] Exposure Response Date Recorded In the last 10 days, have yo u been in contact with someone who was confirmed or suspected to have Coronavirus/COVID-19? No / Unsure 03/06/2022 8:48 AM EDT documented as of this encounter Miscellaneous Notes * Telephone Encounter - Charmaine Quijano PA-C - 03/03/2022 3:42 PM EDT Wll send miconoazole. * Telephone Encounter - Cynthia Anderson M.A. - 03/03/2022 3:35 PM EDT Charmaine, Lotrisone cream is not covered. please review and advise * Telephone Encounter - Veena Schulte - 03/03/2022 3:24 PM EDT What is the name of the medication patient is having a problem with?: clotrimazole-betamethasone (LOTRISONE) cream What is the problem?: insurance won't cover Is the patient calling about the problem? NO If the patient is not the caller who is? Is this a NEW medication?: YES How long has the patient been taking this medication? Who prescribed this medication for the patient? Enrique Diaz Who is patients PCP?: Enrique Diaz Payor: MEDICARE-[place] / Plan: MEDICARE-[place] / Product Type: MEDICARE [id number] documented in this encounter Plan of Treatment Not on file documented as of this encounter Visit Diagnoses Diagnosis Tinea pedis of both feet- Primary documented in this encounter Care Teams Steel Turner Relationship Specialty Start Date End Date Enrique Diaz MD [address] [place] [address] PCP - General Internal Medicine 09/28/15 documented as of this encounter
--- OUTSIDE RECORDS SUMMARY | 2025-09-28 11:14 | XMS_ITS | Encounter Summary ---
Author Organization [facility] Address [address] [place] [address] Care Team Providers Care Hazardous Materials Waste Technician Name Role Phone Enrique Diaz MD Primary Care Provider [phone] Encounter Details Date Type Department Care Team Description 09/03/2019 Hourly Sign Language Interpreter Report Medical Records [address] [place] [address] Yajaira Hanna MD Social History Tobacco Use [...] on filedocumented in this encounter Care Teams Hazardous Materials Waste Technician Relationship Specialty Start Date End Date Enrique Diaz MD [address] [place], [place] [phone] PCP - General Internal Medicine 09/28/15 documented as of this encounter
--- OUTSIDE RECORDS SUMMARY | 2025-09-28 11:14 | XMS_ITS | Encounter Summary ---
Author Organization [email or web address] Address [address] [place] [address] Care Team Providers Care Consumer Education Specialist Name Role Phone Enrique Diaz MD Primary Care Provider [phone] Reason for Visit * Reason Onset Date Comments New Med Request 09/27/2025 triage 09/27/2025 Stomach pain Encounter Details Date Type Department Care Team (Late st Contact Info) Description 09/27/2025 Nurse Triage Adult Medicine [address] [phone] Enrique Diaz MD [address] [place] [address] Social History Tobacco Use Types Packs/Day Years Used Date Smoking Tobacco: Never Cigarettes Smokeless Tobacco: Never Alcohol Use Standard Drinks/Week Comments No 0 (1 standard drink = 0.6 oz pur e alcohol) Interpersonal Safety Answer Date Record ed Physical Abuse Unrecognized value 09/13/2025 Verbal Abuse Unrecognized value 09/13/2025 Sex and Gender Information Value Date Recorded Sex Assigned at Not on file Legal Sex Male 10:46 PM EST Gender Identity Not on file Sexual Orientation Not on file documented as of this encounter Progress Notes * Laurie Nash RN - 09/27/2025 4:31 PM EST Called pt via AMN and interpretor ID # [id number]. He was instructed to go to the ER for further evaluation and treatment. He is in agreement with this plan and states he will go to [facility] ER. He was advised to call the office for a follow up appointment after he is released form the hospital. Reason for Disposition [1] SEVERE pain (e.g., excruciating) AND [2] present > 1 hour Answer Assessment - Initial Assessment Questions 1. LOCATION: Where does it hurt? The pain is located to the left middle abdomen and right middle abdomen. 2. RADIATION: Does the pain shoot anywhere else? (e.g., chest, back) No radiation 3. ONSET: When did the pain begin? (Minutes, hours or days ago) The pain started last night 4. SUDDEN: Gradual or sudden onset? Sudden 5. PATTERN Does the pain come and go, or is it constant? Intermittent 6. SEVERITY: How bad is the pain? (e.g., Scale 1-10; mild, moderate, or severe) Currently the pain rates 9/10 7. RECURRENT SYMPTOM: Have you ever had this type of stomach pain before? If Yes, ask: When was the last time? and What happened that time? He states he had similar pain 20 years ago and was r/t ulcers 8. CAUSE: What do you think is causing the stomach pain? (e.g., gallstones, recent abdominal surgery) He ate chicken that was in the freezer for 2 days. 9. RELIEVING/AGGRAVATING FACTORS: What makes it better or worse? (e.g., antacids, bending or twisting motion, bowel movement) He has taken harshad seltzer and milk of magnesium with no improvement in his symptoms. 10. OTHER SYMPTOMS: Do you have any other symptoms? (e.g., back pain, diarrhea, fever, urination pain, vomiting) He states he has slight diarrhea also Protocols used: Abdominal Pain - Male-A-AH * Saida Colon - 09/27/2025 4:12 PM EST Patient call requires triage: Symptoms patient is presenting: patient is experiencing pain in his stomach stated it kept him awake last night, looking to see if his PCP would prescribe him some medication for the discomfort How long has patient had these symptoms?: 1 day For ALL patients calling to schedule any appointment (routine, sick visit, follow up, consult, etc.) in the outpatient setting please ask the following questions: Do you have fever of higher than 101, sore throat with difficulty swallowing or severe shortness ofbreath? no If YES to any of these above symptoms, send a message to triage and do not book. Red dot. If no, an audio or video visit should be booked. Have you had close contact with someone with Coronavirus in the last 14 days? no Have you traveled abroad? no Have you traveled recently to another state outside of [place], [place], [place], [place], [place], [place], [place]? no o If yes, did you quarantine for 14 days or have a negative covid test? no If yes to any of the above, patient is not to be scheduled in office until after 14 day quarantine or negative covid test. If pain or injury related was it due to an accident at work or from a motor vehicle accident? If yes, date of accident/Injury: No If yes, gather 3rd alliance party insurance information Third Alliance Party Information: not applicable PCP: Enrique Diaz MD Payor: MEDICARE / Plan: MEDICARE PART A & B / Product Type: Medicare / documented in this encounter Plan of Treatment Upcoming Encounters Date Type Department Care Team (Late st Contact Info) Description 01/02/2026 1:30 PM EST Office Visit Adult Medicine [address] [phone] Desirae Kessler PA [address] [place] [address] documented as of this encounter Goals Goal Patient Goal Type Associated Problems Recent Progress Patient-Stated? Author Autogenerat ed Goal Care Plan Autogenerated Problem No Annette Hutchinson documented as of this encounter Visit Diagnoses Not on filedocumented in this encounter Additional Health Concerns Active Problems Noted Date Diagnosed Date Autogenerated Problem 08/15/2025 documented as of this encounter Care Teams Consumer Education Specialist Relationship Specialty Start Date End Date Enrique Diaz MD [address] [place] [address] PCP - General Internal Medicine 09/28/15 documented as of this encounter
--- OUTSIDE RECORDS SUMMARY | 2025-09-28 11:14 | XMS_ITS | Clinical Summary ---
Author Organization [facility] [facility] [employer] [facility] Address [address] [place] [address] [address] [place] [address] Care Team Providers Care Screw Supervisor Name Role Phone Unavailable Primary Care Provider [...]
--- OUTSIDE RECORDS SUMMARY | 2025-09-28 11:14 | XMS_ITS | Encounter Summary ---
Author Organization [facility] Address [address] [place] [address] Care Team Providers Care Crutching Contractor Name Role Phone Enrique Diaz MD Primary Care Provider [phone] Reason for Visit * Reason Comments E-prescribe Rx Request Encounter Details Date Type Department Care Team Description 05/26/2022 Refill Adult Medicine [address] [address] Charmaine Macias PA E-prescribe Rx Request Social History Tobacco Use [...] encounter Miscellaneous Notes * Telephone Encounter - Fayn Guerra C.M.A. - 06/05/2022 3:05 PM EDT LV 02/27/22 Lab Results Component Value Date NA 139 02/27/2022 K 3.9 02/27/2022 CO2 29 02/27/2022 CL 103 02/27/2022 BUN 13 02/27/2022 CREAT 1.05 02/27/2022 GLU 86 02/27/2022 CA 9.4 02/27/2022 GFR > 60 02/27/2022 * Telephone Encounter - Yumiko Art - 06/05/2022 9:18 AM EDT L/m for pt call back make future appt. 3rd attempt Letter mailed to patient * Telephone Encounter - Yumiko Art - 06/02/2022 3:53 PM EDT L/m for pt call back make future appt. 2nd attempt * Telephone Encounter - Yumiko Art - 05/27/2022 2:08 PM EDT Patient would like script to be: E-PRESCRIBED/FAXED TO PHARMACY WHEN WAS THE PATIENT'S LAST APPOINTMENT IN ADULT MEDICINE? 02/27/22 WHEN WAS THE LAST TIME THE PATIENT SAW THEIR PCP? 10/29/21 Does patient have an upcoming appointment? No-unable to reach [facility] to call for appointment due to refill request. Appt due (THE MEDICATION REQUESTED IS ON THE MED [...] / Plan: [place] / Product Type: MEDICARE [id number] documented in this encounter Plan of Treatment Not on file documented as of this encounter Visit Diagnoses Not on filedocumented in this encounter Care Teams Crutching Contractor Relationship Specialty Start Date End Date Enrique Diaz MD [address] [place] [address] PCP - General Internal Medicine 09/28/15 documented as of this encounter
--- OUTSIDE RECORDS SUMMARY | 2025-09-28 11:14 | XMS_ITS | Encounter Summary ---
Author Organization [facility] Address [address] [place] [address] Care Team Providers Care Master Rigger Name Role Phone Enrique Diaz MD Primary Care Provider [phone] Encounter Details Date Type Department Care Team Description 01/01/2022 Rn Endocrinology Report Medical Records [address] [place] [address] Yajaira Hanna MD Social History Tobacco Use [...] on filedocumented in this encounter Care Teams Master Rigger Relationship Specialty Start Date End Date Enrique Diaz MD [address] [place], [place] [phone] PCP - General Internal Medicine 09/28/15 documented as of this encounter
--- OUTSIDE RECORDS SUMMARY | 2025-09-28 11:14 | XMS_ITS | Encounter Summary ---
Author Organization [facility] Address [address] [place] [address] Care Team Providers Care Pie Crust Mixer Name Role Phone Enrique Diaz MD Primary Care Provider [phone] Reason for Visit * Reason Comments E-prescribe Rx Request Encounter Details Date Type Department Care Team Description 02/06/2022 Refill Dermatology - [place] [address] [place] [address] Chrissy Oquendo PA-C E-prescribe Rx Request Social [...] have Coronavirus / COVID-19? No / Unsure 01/22/2022 10:51 AM EST documented as of this encounter Plan of Treatment Not on file documented as of this encounter Visit Diagnoses Not on filedocumented in this encounter Care Teams Pie Crust Mixer Relationship Specialty Start Date End Date Enrique Diaz MD [address] [place] [id number] PCP - General Internal Medicine 09/28/15 documented as of this encounter
--- OUTSIDE RECORDS SUMMARY | 2025-09-28 11:14 | XMS_ITS | Encounter Summary ---
Author Organization [facility] Address [address] [place] [address] Care Team Providers Care Plastic Boat Buffer Name Role Phone Enrique Diaz MD Primary Care Provider [phone] Encounter Details Date Type Department Care Team Description 07/28/2019 Adult Remedial Education Instructor Report Medical Records [address] [place] [address] Jovon Bruce MD Social History Tobacco Use [...] filedocumented in this encounter Care Teams Plastic Boat Buffer Relationship Specialty Start Date End Date Enrique Diaz MD [address] [place], [place] [phone] PCP - General Internal Medicine 09/28/15 documented as of this encounter
--- OUTSIDE RECORDS SUMMARY | 2025-09-28 11:14 | XMS_ITS | Encounter Summary ---
Author Organization [facility] Address [address] [place] [address] Care Team Providers Care Industrial Relations Representative Name Role Phone Enrique Diaz MD Primary Care Provider [phone] Encounter Details Date Type Department Care Team Description 05/14/2017 Board Lining Machine Operator Report Medical Records [address] [place] [address] Jovon Bruce MD Social History Tobacco Use [...] on filedocumented in this encounter Care Teams Industrial Relations Representative Relationship Specialty Start Date End Date Enrique Diaz MD [address] [place], [place] [phone] PCP - General Internal Medicine 09/28/15 documented as of this encounter
--- OUTSIDE RECORDS SUMMARY | 2025-09-28 11:14 | XMS_ITS | Encounter Summary ---
Author Organization [facility] Address [address] [place] [address] Care Team Providers Care Features Reporter Name Role Phone Enrique Diaz MD Primary Care Provider [phone] Encounter Details Date Type Department Care Team Description 07/14/2024 Harness Repairer Report Medical Records [address] [place] [address] Social History Tobacco Use Types Packs/Day Years [...] on filedocumented in this encounter Care Teams Features Reporter Relationship Specialty Start Date End Date Enrique Diaz MD [address] [place] [address] PCP - General Internal Medicine 09/28/15 documented as of this encounter
--- OUTSIDE RECORDS SUMMARY | 2025-09-28 11:14 | XMS_ITS | Encounter Summary ---
Author Organization [facility] Address [address] [place] [address] Care Team Providers Care Airplane And Engine Inspector Name Role Phone Enrique Diaz MD Primary Care Provider [phone] Encounter Details Date Type Department Care Team Description 01/10/2019 Release of Information Medical Records [address] [place] [address] Abstract, Provider Social History Tobacco Use Types Packs/Day Years [...] on filedocumented in this encounter Care Teams Airplane And Engine Inspector Relationship Specialty Start Date End Date Enrique Diaz MD [address] [place] [address] PCP - General Internal Medicine 09/28/15 documented as of this encounter
--- OUTSIDE RECORDS SUMMARY | 2025-09-28 11:14 | XMS_ITS | Encounter Summary ---
Author Organization [employer] [facility] Address [address] [facility] [address] [place] [address] Care Team Providers Care It Administrator Name Role Phone Unavailable Primary Care [...]
--- OUTSIDE RECORDS SUMMARY | 2025-09-28 11:14 | XMS_ITS | Encounter Summary ---
Demographics Address [address] [place] [address] Mobile Phone Home Phone Mobile Phone Email Address [email or web address] Preferred Language Cymraes Marital Status Sikhism Affiliation Unknown Race White Ethnic Group or Author Organization [facility] Address [address] [place] [address] Care Team Providers Care Curam Developer Name Role Phone Enrique Diaz MD Primary Care Provider [phone] Encounter Details Date Type Department Care Team Description 02/21/2016 Assessment Clinician Report Medical Records [address] [place] [address] Yajaira Hanna MD Social History Tobacco Use [...] on filedocumented in this encounter Care Teams Curam Developer Relationship Specialty Start Date End Date Enrique Diaz MD [address] [place], [place] [phone] PCP - General Internal Medicine 09/28/15 documented as of this encounter
--- OUTSIDE RECORDS SUMMARY | 2025-09-28 11:14 | XMS_ITS | Clinical Summary ---
Author Organization [facility] Address [address] [place] [address] Care Team Providers Care Test Driller Name Role Phone Enrique Diaz MD Primary Care Provider [phone] Allergies No known active allergies Medications Medication [...] age to complete this topic Care Teams Test Driller Relationship Specialty Start Date End Date Enrique Diaz MD PCP - General Internal Medicine 01/29/22
--- OUTSIDE RECORDS SUMMARY | 2025-09-28 11:14 | XMS_ITS | Encounter Summary ---
Author Organization [facility] Address [address] [place] [address] Care Team Providers Care Environmental Resource Specialist Name Role Phone Enrique Diaz MD Primary Care Provider [phone] Encounter Details Date Type Department Care Team Description 12/08/2019 Orders Only Medical Records [address] [place] [address] Bradford Cavazos MD [address] [place] [address] Social History Tobacco Use Types Packs/Day Years Used Date Smoking Tobacco: Never Cigarettes 1 Smokeless Tobacco: Never Alcohol Use Standard Drinks/Week Comments No 0 (1 standard drink = 0.6 oz pur e alcohol) Sex Assigned at Date Recorded Not on file Job Start Date Occupation Industry Not on file Not on file Not on file documented as of this encounter Progress Notes * Nedra Cavazos MD - 12/18/2019 3:22 PM EST Dear Mr. Munguia, The polyp(s) that were removed during your colonoscopy were precancerous, but benign. Fortunately, we removed them and therefore, they will not cause any more problems in the future. Based on the number, the size, and the features of the polyp(s) removed, I recommend a follow-up colonoscopy in 5 years. Before, the 5 years are due, we will send you a reminder in the mail asking you to contact our office to have the colonoscopy scheduled. I would like to personally thank you for allowing us to take care of you. Please don't hesitate to call us for any questions or concerns. Regards, Sammy Cavazos MD Board Certified Gastroenterology and Internal Medicine Transplant Hepatology [facility] documented in this encounter Plan of Treatment Not on file documented as of this encounter Procedures Procedure Name Priority Date/Time Associated Diagnosis Comments OUTSIDE PATHOLOGY Routine 12/06/2019 documented in this encounter Results * OUTSIDE PATHOLOGY (12/06/2019) H Jacky Cavazos MD OUTSIDE LAB documented in this encounter Visit Diagnoses Not on filedocumented in this encounter Care Teams Environmental Resource Specialist Relationship Specialty Start Date End Date Enrique Diaz MD [address] [place] [address] PCP - General Internal Medicine 09/28/15 documented as of this encounter
--- OUTSIDE RECORDS SUMMARY | 2025-09-28 11:14 | XMS_ITS | Encounter Summary ---
Author Organization [facility] Address [address] [place] [address] Care Team Providers Care Die Stamping Press Operator Name Role Phone Enrique Diaz MD Primary Care Provider [phone] Reason for Referral * EXTERNAL (Routine) - Authorized/Booked Specialty Diagnoses / Procedures Referred By Alisia brown Referred To Contact Dermatology Procedures REFERRAL TO DERMATOLOGY Enrique Diaz MD [address] [place], [place] [phone] [facility] Dermatology & Laser Referral ID Status Reason Start Date Expiration Date V isits Requested Visits Authorized [id number] Authorized/B ooked 11/12/2021 11/12/2022 1 1 Reason for Visit * Reason Onset Date Comments Construction Manager Feedback 11/12/2021 Dermatology Encounter Details Date Type Department Care Team Description 11/12/2021 Telephone Adult Medicine [address] [phone] Enrique Diaz MD [address] [place], [place] [phone] Construction Manager Feedback (Dermatology ) Social History Tobacco Use Types Packs/Day Years [...] have Coronavirus / COVID-19? No / Unsure 11/13/2021 2:18 PM EST documented as of this encounter Miscellaneous Notes * Telephone Encounter - Kayla Cardsteve - 11/12/2021 11:[address] Diaz, This patient is requesting to see shalom Olivera she is not seeing any more patients at this time. Please sign new order. Thank you, -Kayla documented in this encounter Plan of Treatment Not on file documented as of this encounter Visit Diagnoses Not on filedocumented in this encounter Care Teams Die Stamping Press Operator Relationship Specialty Start Date End Date Enrique Diaz MD [address] [place] [address] PCP - General Internal Medicine 09/28/15 documented as of this encounter
--- OUTSIDE RECORDS SUMMARY | 2025-09-28 11:14 | XMS_ITS | Encounter Summary ---
Author Organization [facility] Address [address] [place] [address] Care Team Providers Care Bridge/Structure Inspection Team Leader Name Role Phone Enrique Diaz MD Primary Care Provider [phone] Encounter Details Date Type Department Care Team Description 01/26/2017 Logistical Engineer Report Medical Records [address] [place] [address] Yajaira Hanna MD Social History Tobacco Use [...] on filedocumented in this encounter Care Teams Bridge/Structure Inspection Team Leader Relationship Specialty Start Date End Date Enrique Diaz MD [address] [place], [place] [phone] PCP - General Internal Medicine 09/28/15 documented as of this encounter
--- OUTSIDE RECORDS SUMMARY | 2025-09-28 11:14 | XMS_ITS | Encounter Summary ---
Author Organization [facility] Address [address] [place] [address] Care Team Providers Care Assembly Worker Name Role Phone Enrique Diaz MD Primary Care Provider [phone] Encounter Details Date Type Department Care Team Description 07/01/2017 Paring Machine Operator Report Medical Records [address] [place] [address] Skylar Pascual Social History Tobacco Use Types Packs/Day Years [...] on filedocumented in this encounter Care Teams Assembly Worker Relationship Specialty Start Date End Date Enrique Diaz MD [address] [place], [place] [phone] PCP - General Internal Medicine 09/28/15 documented as of this encounter
--- OUTSIDE RECORDS SUMMARY | 2025-09-28 11:14 | XMS_ITS | Encounter Summary ---
Author Organization [facility] Address [address] [place] [address] Care Team Providers Care River And Harbor Soundings Group Leader Name Role Phone Enrique Diaz MD Primary Care Provider [phone] Encounter Details Date Type Department Care Team Description 04/28/2022 Softlines Supervisor Report Medical Records [address] [place] [address] [facility] Cardiovascular [address] [place] [address] Social History Tobacco Use Types Packs/Day Years [...] on filedocumented in this encounter Care Teams River [place] Soundings Group Leader Relationship Specialty Start Date End Date Enrique Diaz MD [address] [place] [address] PCP - General Internal Medicine 09/28/15 documented as of this encounter
--- OUTSIDE RECORDS SUMMARY | 2025-09-28 11:14 | XMS_ITS | Encounter Summary ---
Author Organization [facility] Address [address] [place] [address] Care Team Providers Care Vp Hr Diversity Name Role Phone Enrique Diaz MD Primary Care Provider [phone] Encounter Details Date Type Department Care Team Description 12/16/2018 Oil Burner Installer Report Medical Records [address] [place] [address] Aleksandr Sanchez Social History Tobacco Use Types [...] on filedocumented in this encounter Care Teams Vp Hr Diversity Relationship Specialty Start Date End Date Enrique Diaz MD [address] [place], [place] [phone] PCP - General Internal Medicine 09/28/15 documented as of this encounter
--- OUTSIDE RECORDS SUMMARY | 2025-09-28 11:14 | XMS_ITS | Clinical Summary ---
Author Organization [facility] Address [address] [place] [address] Care Team Providers Care Revenue Cycle Manager Name Role Phone Enrique Diaz MD Primary Care Provider [phone] Allergies No known active allergies Medications Medication Sig Dispensed Refills Start Date End Date Status latanoprost (XALATAN) 0.005 % ophthalmic solution 1 Drop at bedtime. 0 Active GILIFLGLRA-DLJL-DSPI -COD 50-285-17-30 MG OR CAPS 75-609-59-30 MG Cap Take by mouth as needed. 0 Active Zolpidem Tartrate 10 MG Tab Take by mouth at bedtime as needed. 0 Active miconazole (MICOTIN) 2 % cream Apply to affected area twice a day for 4 weeks. 30 g 0 03/03/2022 Active sulindac (CLINORIL) 150 MG tablet TAKE 1 TABLET BY MOUTH TWICE A DAY 180 Tablet 1 01/27/2024 Active triamcinolone (KENALOG) 0.1 % ointmentIndications: Rash APPLY TO AFFECTED AREA 2 TO 3 TIMES A DAY FOR MAX 2 WEEKS. IF NO IMPROVEMENT, STOP & CALL DOCTOR 30 g 0 02/11/2024 Active atorvastatin (LIPITOR) 40 MG tablet TAKE 1 TABLET BY MOUTH EVERY DAY 90 Tablet 1 05/18/2024 Active lisinopril (PRINIVIL,ZESTRIL) 30 MG tablet TAKE 1 TABLET BY MOUTH EVERY DAY 90 Tablet 1 05/18/2024 Active chlorthalidone (HYGROTEN) 50 MG tablet Take 1 Tablet by mouth daily. 90 Tablet 1 06/16/2024 Active Melatonin 10 MG Tab Take 5 mg by mouth every evening. 30 Tablet 5 06/16/2024 Active hydrocortisone 2.5 % creamIndications:Hem orrhoids, unspecified hemorrhoid type APPLY TO AFFECTED AREA TWICE A DAY 28 g 5 07/26/2024 Active ciclopirox (PENLAC) 8 % solution APPLY TO AFFECTED NAIL DAILY. REMOVE WITH ALCOHOL EVERY 7 DAYS. APPLY FOR 8 WEEKS. 6.6 mL 0 08/18/2024 Active trazodone (DESYREL) 50 MG tablet TAKE 1 TABLET BY MOUTH EVERYDAY AT BEDTIME 90 Tablet 1 09/05/2024 Active Active Problems Problem Noted Date Insomnia 01/03/2022 Overview: Follows with neurology (gentry) 6 mth basis. Tension headache 01/03/2022 Aortic stenosis 10/18/2021 Overview: Follows with [facility] on a yearly basis. Diverticulosis 03/05/2021 Primary osteoarthritis of both hands Primary osteoarthritis of both knees Hyperlipidemia 10/24/2016 History of prostatitis 09/27/2015 Overview: Patient used to see Dr Martinez as was treated cipro on 01/2015 Venous stasis dermatitis 04/20/2014 Hypospadias 08/12/2013 HTN (hypertension) 03/09/2013 Varicose vein 05/27/2012 BPH (benign prostatic hyperplasia) 12/10 Overweight 02/07/2011 Abnormal brain MRI 03/19/2010 Overview: Differential diagnosis includes demyelination process inflammatory or postinflammatory state atypical infarct or low-grade neoplasm Backache, unspecified 04/18/2009 Overview: IMO update history of upper gastrointestinal bleed 01/09/2006 Resolved Problems Problem Noted Date Resolved Date Heart murmur 01/12/2013 03/12/2023 Overview: On ECHO on 2006: aortic valve appears to be sclerotic without significant evidence of stenosis. NLVSF. 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 Immunizations Name Administration Dates Next Due COVID-19 (Moderna) 09/09/2021,02/02/2021, 021 Covid-19 Bivalent (Moderna) 09/18/2022 Influenza (> 6 Months) 08/17/2015,2013,08/12/2013,07/31,11/01/2009,09/18/2007,10/25/2006 Influenza Vaccine-quadrivale nt 4 Years Plus 09/18/2017 Influenza vaccine high dose age 65 and over 08/23/2024,09/09/2023,09/18/2022,07/27,09/26/2019 Pneumoccoccal(Adult) Polysac charide PPSV23 12/25/2020 Pneumococcal Conjugate PCV-13 09/26/2019 Shingrix (Recombinant zoster vaccine) 05/27/2022 TD (STATE SUPPLIED FOR ADULT S AND CHILDREN) 07/27/2020 Tdap 06/26/2010 Family History Medical History Relation Name Comments at 55 abdominal ulcer Father n o details No Known Problems Maternal Grandfather No Known Problems Maternal Grandmother Glaucoma Mother at 99 Mother No Known Problems Paternal Grandfather No Known Problems Paternal Grandmother Relation Name Status Comments Father Maternal Grandfather Maternal Grandmother Mother Paternal Grandfather Paternal Grandmother Social History Tobacco Use Types Packs/Day Years Used Date Smoking Tobacco: Never Cigarettes 1 Smokeless Tobacco: Never Tobacco Cessation:Counseling Given: Not Answered Alcohol Use Standard Drinks/Week Comments No 0 (1 standard drink = 0.6 oz pur e alcohol) Sex Assigned at Date Recorded Not on file Job Start Date Occupation Industry Not on file Not on file Not on file Last Filed Vital Signs Vital Sign Reading Time Taken Comments Blood Pressure 124/72 06/16/2024 3:11 PM EDT Pulse 85 06/16/2024 3:11 PM EDT Temperature 36 C (96.8 F) 06/16/2024 3:11 PM EDT Respiratory Rate 12 06/16/2024 3:11 PM EDT Oxygen Saturation 98% 06/24/2022 11:40 AM EDT Inhaled Oxygen Concentration - - Weight 73 kg (161 lb) 06/16/2024 3:11 PM EDT Height 162.6 cm (5' 4 ) 06/16/2024 3:11 PM EDT Body Mass Index 27.64 06/16/2024 3:11 PM EDT Plan of Treatment Health Maintenance Due Date Last Done Comments SHINGLES VACCINE (2 of 2) 07/22/2022 05/27/2022 FALL RISK ASSESSMENT 03/12/2024 03/12/2023, 02/27/2022, 07/27/2020, Additional history exists BMI CHECK/ADVISE 11/16/2024 11/27/2021, 07/2021, 12/28/2019, Additional history exists DEPRESSION SCREEN 06/16/2025 06/16/2024, , 02/27/2022, Additional history exists Covid-19 Vaccine (2022-12 4 season) 2025 09/18/2022, 09/09/2021, 02/02/2021, Additional history exists INFLUENZA (#1) 2025 08/23/2024, 08/17, 09/18/2022, Additional history exists CHOLESTEROL SCREENING 06/16/2029 06/16/2024 , 12/08/2023, 10/29/2021, Additional history exists COLON CANCER SCREENING 12/06/2029 12/06/2019, 2008 DTAP/TDAP/TD (3 - Td or Tdap) 07/27/2030 07/27/2020, 06/26/2010 HEPATITIS C SCREENING Completed 12/31/2013 PNEUMOCOCCAL VACCINE Completed 12/25/2020, 09/26/20 19 Advance Directives For more information, please contact: [phone] Documents on File Type Date Recorded Patient Service Control Operator Expl anation Health Care Proxy 06/05/2023 9:04 AM [facility] Care Teams Revenue Cycle Manager Relationship Specialty Start Date End Date Enrique Diaz MD [address] [place] [address] PCP - General Internal Medicine 09/28/15
--- OUTSIDE RECORDS SUMMARY | 2025-09-28 11:14 | XMS_ITS | Encounter Summary ---
Author Organization [facility] Address [address] [place] [address] Care Team Providers Care Upkeep Worker Name Role Phone Enrique Diaz MD Primary Care Provider [phone] Reason for Visit * Reason Onset Date Comments TEST RESULTS 05/20/2017 Walk In 05/20/2017 Encounter Details Date Type Department Care Team Description 05/20/2017 Telephone Adult Medicine [address] [address] Enrique Diaz MD [address] [place] [id number] TEST RESULTS; Walk In Social History Tobacco Use Types Packs/Day Years [...] encounter Miscellaneous Notes * Telephone Encounter - Enrique Diaz MD - 05/21/2017 7:55 AM EDT Pt was given his results ldl was 145 decreased from 160 (pt lost his access to mychart in which the results were placed) Pt notes he has been off the pravastatin x one month Will refill Pt to return to the lab in 08/2017 pt to f/u with me as scheduled in 09/2017 * Telephone Encounter - Nydia Velazquez - 05/20/2017 2:18 PM EDT Inform patient: ANY URGENT OR ABNORMAL RESULTS WIILL RESULT IN A CALL BACK TO THE PATIENT NANDA. Type of test: :LAB WORK Date test was performed: 03/10/17 Where was the test performed: [facility] Who ordered this test?: Dr. Diaz Is the doctor here today?: YES Can the message wait until the doctor returns?: YES IF PATIENT'S PCP IS NOT IN INSTRUCT PATIENT THAT THEY WILL RECEIVE A CALL BACK WHEN THE PCP IS IN THE OFFICE NEXT. documented in this encounter Plan of Treatment Scheduled Orders Name Type Priority Associated Diagnoses Orde r Schedule TRANSAMINASE (SGOT)(AST) UV- Lab Routine Encounter for long-term current use of medication Expected: 05/21/2017, Expires: 05/21/2018 TRANSAMINASE (SGPT)(ALT) UV- Lab Routine Encounter for long-term current use of medication Expected: 05/21/2017, Expires: 05/21/2018 documented as of this encounter Results * (ABNORMAL) LIPID PROFILE (03/30/2018 12:56 PM EDT) Pathologist [facility] Cholesterol 237(H) 0 - 200 mg/dL 03/30/2018 3:24 PM EDT [facility] TRIGLYCERIDES 92 0 - 150 mg/dL 03/30/2018 3:24 PM EDT [facility] HDL CHOLESTEROL 60 >40 mg/dL 8 3:24 PM EDT [facility] LDL CALCULATED 159(H) 0 - 100 mg/dL 03/30/2018 3:24 PM EDT [facility] TC-HDLC RATIO 4 0.0 - 4.4 mg/dL 03/30/2018 3:24 PM EDT [facility] 03/30/2018 12:5 6 PM EDT 03/30/2018 12:56 PM EDT Enrique Diaz MD LAB [facility] [address] [facility] documented in this encounter Visit Diagnoses Diagnosis Mixed hyperlipidemia- Primary Encounter for long-term current use of medication documented in this encounter Care Teams Upkeep Worker Relationship Specialty Start Date End Date Enrique Diaz MD [address] [place] [address] PCP - General Internal Medicine 09/28/15 documented as of this encounter
--- OUTSIDE RECORDS SUMMARY | 2025-09-28 11:14 | XMS_ITS | Encounter Summary ---
Author Organization [facility] Address [address] [place] [address] Care Team Providers Care Slip Cover Cutter Name Role Phone Name, Darryl BANUELOS Primary Care Provider [facility] Len Parisi MD Primary Care Provider [phone] Enrique Diaz MD Primary Care Provider [phone] Encounter Details Date Type Department Care Team Description 2011 Marketing Graphics Specialist Report Medical Records [address] [place] [id number] John[facility] Martinez MD Social History Tobacco Use Types Packs/Day Years Used Date Smoking Tobacco: Never Cigarettes 1 Alcohol Use Standard Drinks/Week Comments No 0 [...] on filedocumented in this encounter Care Teams Slip Cover Cutter Relationship Specialty Start Date End Date Name, MD Darryl PCP - General 08/06/11 09/27/15 Len Parisi MD [address] [place] [address] [id number] PCP - General 06/27/10 08/05/11 Enrique Diaz MD [address] [place] [address] [id number] PCP - General Internal Medicine 09/28/15 documented as of this encounter
--- OUTSIDE RECORDS SUMMARY | 2025-09-28 11:14 | XMS_ITS | Clinical Summary ---
Author Organization [address] Address [address] [place] [phone] Phone Care Team Providers Care Business Lawyer Name Role Phone Enrique Diaz MD Primary Care Provider Allergies No known active allergies Medications butalbital-hari taminophen-caf feine-codeine [id number] mg capsule Take by mouth as needed. [...] 12/19/19 25 Active methocarbamoL (ROBAXIN) 500 mg tabletIndicati ons:Neck pain,Bilateral shoulder pain, unspecified chronicity Take 1 [...] 30 g 3 03/17/20 25 Active lisinopriL (PRINIVIL,ZEST RIL) 30 mg tablet TAKE 1 TABLET BY MOUTH EVERY DAY 90 tablet 1 07/18/20 25 Active polyethylene glycol (Golytely) 236-22.74-6.74 -5.86 gram solution Take 4L by mouth once for one dose. May substitue any PEG. Starting at 2PM the day before your procedure drink 1 8oz glasses at your own pace until you complete half of the gallon. Finish 2nd half of the gallon at 8PM. 4000 mL 08/30/20 25 Active bisacodyL (DULCOLAX) 5 mg EC tablet Take 2 tablets by mouth right before beginning bowel prep. See instructions provided by the office 2 tablet 08/30/20 25 Active chlorthalidone (HYGROTON) 50 mg tablet TAKE 1 TABLET BY MOUTH EVERY DAY 90 tablet 1 09/20/20 25 Active chlorthalidone (HYGROTON) 50 mg tablet TAKE 1 TABLET BY MOUTH EVERY DAY 90 tablet 1 12/23/19 25 025 Discontinued Active Problems Problem Noted Date Diagnosed Date Insomnia 01/03/2022 Overview (10/17/2024): Follows with neurology (gentry) 6 mth basis. Tension headache 01/03/2022 Aortic stenosis 10/18/2021 Overview (10/17/2024): Follows with [facility] Associates on a [...] Encounters Date Type Department Care Team Description 09/27/2025 Nurse Triage Adult Medicine [address] [phone] Enrique Diaz MD 09/13/2025 1:05 PM EDT Anesthesia Event [facility] [address] [place] [phone] Jhon Miller MD 09/13/2025 12:13 PM EDT - 09/13/2025 11:59 PM EDT Hospital Encounter [facility] [address] [place] [phone] Nedra Cavazos MD Steele, Matthew G, CRNA Dasilva, John E, MD Hx of colonic polyps Discharge Disposition: Home or Self Care 06/30/2025 Telephone Adult Medicine [address] [phone] Enrique Diaz MD 06/29/2025 1:15 PM EDT Office Visit Adult Medicine [address] [phone] Enrique Diaz MD Primary hypertension (Primary Dx); Pure hypercholesterolemia ; Encounter for long-term (current) use of medications; [...] Surgery Date Site/Laterality Comments COLONOSCOPY 08/28/2009 PROCEDURE: MD COLONOSCOPY FLX DX W/COLLJ SPEC WHEN PFRMD OTHER SURGICAL HISTORY Left PROCEDURE: MD LIGJ DIVJ & STRIPPING SHORT SAPHENOUS VEIN Medical History Medical History Date Comments 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 DX:Unspecified disorder of l ipoid metabolism Blood in stool 01/09/2006 DX:Blood in stoo l Hypertrophy of prostate with out urinary obstruction and other lower urinary tract symptoms (LUTS) 08/18/2006 DX:Hypertrophy of prostate w ithout urinary obstruction and other lower urinary tract symptoms (LUTS) Overweight(278.02) 02/07/2011 DX:Overweight (278.02) Unspecified glaucoma(365.9) DX:U nspecified glaucoma(365.9) HTN (hypertension) 03/09/2013 DX:HTN (hyper tension) Inguinal hernia DX:Inguinal cayetano ia; COMMENT: left Hyperlipidemia Headache Glaucoma Family History Medical History Relation Name Comments [...] Sign Reading Time Taken Comments Blood Pressure 98/72 09/13/2025 1:40 PM EDT Pulse 83 09/13/2025 1:40 PM EDT Temperature 36.1 C (97 F) 09/13/2025 1:20 PM EDT Respiratory Rate 20 09/13/2025 1:40 PM EDT Oxygen Saturation 98% 09/13/2025 1:40 PM EDT Inhaled Oxygen Concentration - - Weight 72.6 kg (160 lb) 09/13/2025 12:51 PM EDT Height 170.2 cm (5' 7 ) 09/13/2025 12:51 PM EDT Body Mass Index 25.06 09/13/2025 12:51 PM EDT Plan of Treatment Upcoming Encounters Date Type Department Care Team (Late st Contact Info) Description 01/02/2026 1:30 PM EST Office Visit Adult Medicine [facility] [address] [place] [address] Desirae Kessler PA [address] [place], [place] Health Maintenance Due Date Last Done Comments Medicare Annual Wellness Visit 10/24/2022 Social Influencers of Health Screening 10/24/2022 Depression Screening 11/16/2024 06/16/2024 COVID-19 Vaccine ( season) 2025 09/18/2022, 04/02/2022, 09/09/2021, Additional history exists Hypertension/CHF/CAD Annual BMP Blood Test 06/30/2026 06/30/2025, 06/29/2025, 12/19/2024, Additional history exists Falls Risk Assessment 09/13/2026 09/13/2025 RSV Immunization Adult Patients (1 - 1-dose 75+ series) 2028 Cholesterol Screening (Lipid Panel) 06/29/2030 06/29/2025, 12/19/2024, 06/16/2024, Additional history exists DTaP,Tdap,and Td Vaccines (4 - Td or Tdap) 05/21/2035 05/21/2025, 07/27/2020, 06/26/2010 Colorectal Cancer Screening: Colonoscopy 09/13/2035 09/13/2025, 12/06/2019 Hepatitis C Screening Completed 12/31/2013 Pneumococcal Vaccine: [...] Procedure Name Priority Date/Time Associated Diagnosis Comments COLONOSCOPY Routine 09/13/2025 1:19 PM EDT Hx of colonic polyps TISSUE EXAM Routine 09/13/2025 1:14 PM EDT Hx of colonic polyps BASIC METABOLIC PANEL Routine 06/30/2025 11:09 AM EDT Hypokalemia Hypochloremia Hyponatremia Hypercapnia LIPID PANEL WITH REFLEX TO DIRECT LDL Routine 06/29/2025 1:30 PM EDT Pure hypercholesterolemia COMPREHENSIVE METABOLIC PANEL Routine 06/29/2025 1:30 PM EDT Primary hypertension Encounter for long-term (current) use of medications DEPRESSION SCREENING Routine 06/16/2024 HEPATITIS C SCREENING Routine 12/31/2013 from Last 3 Months or Most Recently Relevant to Health Maintenance Results * COLONOSCOPY Anesthesia - MAC; [facility] (09/13/2025 1:19 PM EDT) Anatomical Region Laterality Modality Endoscopy 09/13/2025 1:06 PM EDT Impressions 09/13/2025 1:26 PM EDT - One diminutive polyp in the ascending colon, removed with a jumbo cold forceps. Resected and retrieved. - Diverticulosis in the sigmoid colon. - Internal hemorrhoids. Recommendation: - Await pathology results. - No repeat colonoscopy due to age. Narrative 09/13/2025 1:26 PM EDT [facility] GI Patient Name: Bennett Beaulieu Procedure Date: 09/13/2025 1:06 PM Date of : 1955 Age: 70 Gender: Male Note Status: Finalized Attending MD: Nedra Cavazos MD, Procedure Date No Time: 09/13/2025 Procedure: Colonoscopy Indications: High risk colon cancer surveillance: Personal history of colonic polyps Providers: Nedra Cavazos MD Referring MD: Nedra Cavazos MD Medicines: Monitored Anesthesia Care Complications: No immediate complications. Estimated blood loss: Minimal. Estimated Blood Loss: Estimated blood loss was minimal. Procedure: Pre-Anesthesia Assessment: - Prior to the procedure, a History and Physical was performed, and patient medications and allergies were reviewed. The patient is competent. The risks and benefits of the procedure and the sedation options and risks were discussed with the patient. All questions were answered and informed consent was obtained. Patient identification and proposed procedure were verified by the physician, the nurse, the research and development manager and the roofing technician in the pre-procedure area in the endoscopy suite. Mental Status Examination: alert and oriented. Airway Examination: normal oropharyngeal airway and neck mobility. Respiratory Examination: clear to auscultation. CV Examination: normal. Prophylactic Antibiotics: The patient does not require prophylactic antibiotics. Prior Anticoagulants: The patient has taken no anticoagulant or antiplatelet agents. ASA Grade Assessment: II - A patient with mild systemic disease. After reviewing the risks and benefits, the patient was deemed in satisfactory condition to undergo the procedure. The anesthesia plan was to use monitored anesthesia care (MAC). Immediately prior to administration of medications, the patient was re-assessed for adequacy to receive sedatives. The heart rate, respiratory rate, oxygen saturations, blood pressure, adequacy of pulmonary ventilation, and response to care were monitored throughout the procedure. The physical status of the patient was re-assessed after the procedure. After I obtained informed consent, the scope was passed under direct vision. Throughout the procedure, the patient's blood pressure, pulse, and oxygen saturations were monitored continuously. The Olympus Colonoscope was introduced through the anus and advanced to the cecum, identified by appendiceal orifice and ileocecal valve. The colonoscopy was performed without difficulty. The patient tolerated the procedure well. The quality of the bowel preparation was good. Findings: The perianal and digital rectal examinations were normal. A diminutive polyp was found in the ascending colon. The polyp was sessile. The polyp was removed with a jumbo cold forceps. Resection and retrieval were complete. Estimated blood loss was minimal. Scattered small-mouthed diverticula were found in the sigmoid colon. Internal hemorrhoids were found during retroflexion. The hemorrhoids were Grade II (internal hemorrhoids that prolapse but reduce spontaneously). Procedure Code(s): --- Professional --- 68094, Colonoscopy, flexible; with biopsy, single or multiple Diagnosis Code(s): --- Professional --- D12.2, Benign neoplasm of ascending colon CPT copyright 2020 [employer]. All rights reserved. The codes documented in this report are preliminary and upon business system manager review may be revised to meet current compliance requirements. Nedra Cavazos MD 09/13/2025 1:26:13 PM This report has been signed electronically.Nedra Cavazos MD Number of Addenda: 0 Note Initiated On: 09/13/2025 1:06 PM Scope Withdrawal Time: 0 hours 6 minutes 5 seconds Scope In: 1:10:55 PM Scope Out: 1:19:19 PM Endoscopy Department at [facility] - [address] [place] [phone] Procedure Note Nedra Cavazos MD - 09/13/2025 [facility] Patient Name: Bennett Beaulieu Procedure Date: 09/13/2025 1:06 PM Date of : 1955 Age: 70 Gender: Male Note Status: Finalized Attending MD: Nedra Cavazos MD, Procedure Date No Time: 09/13/2025 Procedure: Colonoscopy Indications: High risk colon cancer surveillance: Personalhistory of colonic polyps Providers: Nedra Cavazos MD Referring MD: Nedra Cavazos MD Medicines: Monitored Anesthesia Care Complications: No immediate complications. Estimated blood loss: Minimal. Estimated Blood Loss: Estimated blood loss was minimal. Procedure: Pre-Anesthesia Assessment: - Prior to the procedure, a History and Physicalwas performed, and patient medications and allergieswere reviewed. The patient is competent. The risks and benefits of the procedure and the sedation optionsand risks were discussed with the patient. Allquestions were answered and informed consent was obtained. Patient identification and proposed procedure were verified by the physician, the nurse, theanesthetist and the roofing technician in the pre-procedure area in the endoscopy suite. Mental Status Examination: alertand oriented. Airway Examination: normal oropharyngeal airway and neck mobility. Respiratory Examination: clear to auscultation. CV Examination: normal. Prophylactic Antibiotics: The patient does notrequire prophylactic antibiotics. Prior Anticoagulants: The patient has taken no anticoagulant or antiplatelet agents. ASA Grade Assessment: II - A patient withmild systemic disease. After reviewing the risks and benefits, the patient was deemed in satisfactory condition to undergo the procedure. The anesthesia plan was to use monitored anesthesia care (MAC). Immediately prior to administration of medications, the patient was re-assessed for adequacy to receive sedatives. The heart rate, respiratory rate, oxygen saturations, blood pressure, adequacy of pulmonary ventilation, and response to care were monitored throughout the procedure. The physical status ofthe patient was re-assessed after the procedure. After I obtained informed consent, the scope was passed under direct vision. Throughout theprocedure, the patient's blood pressure, pulse, and oxygen saturations were monitored continuously. TheOlympus Colonoscope was introduced through the anus and advanced to the cecum, identified by appendiceal orifice and ileocecal valve. The colonoscopy was performed without difficulty. The patient tolerated the procedure well. The quality of the bowel preparation was good. Findings: The perianal and digital rectal examinations were normal. A diminutive polyp was found in the ascendingcolon. The polyp was sessile. The polyp was removed with a jumbo cold forceps. Resection and retrieval were complete. Estimated blood loss was minimal. Scattered small-mouthed diverticula were found inthe sigmoid colon. Internal hemorrhoids were found duringretroflexion. The hemorrhoids were Grade II (internal hemorrhoids that prolapse but reduce spontaneously). Procedure Code(s): --- Professional --- 07341, Colonoscopy, flexible; with biopsy, singleor multiple Diagnosis Code(s): --- Professional --- D12.2, Benign neoplasm of ascending colon CPT copyright 2020 [employer]. All rights reserved. The codes documented in this report are preliminary and upon business system manager reviewmay be revised to meet current compliance requirements. Nedra Cavazos MD 09/13/2025 1:26:13 PM This report has been signed electronically.Nedra Cavazos MD Number of Addenda: 0 Note Initiated On: 09/13/2025 1:06 PM Scope Withdrawal Time: 0 hours 6 minutes 5 seconds Scope In: 1:10:55 PM Scope Out: 1:19:19 PM Endoscopy Department at [facility] - [address] [place] [phone] IMPRESSION: - One diminutive polyp in the ascending colon, removed with a jumbo cold forceps. Resected andretrieved. - Diverticulosis in the sigmoid colon. - Internal hemorrhoids. Recommendation: - Await pathology results. - No repeat colonoscopy due to age. us Nedra Cavazos MD GI~PROCEDURE ORDERABLES Fin al Result * Tissue exam (09/13/2025 1:14 PM EDT) Final Diagnosis Polyp, descending colon, polypectomy: - Tubular adenoma. 09/14/2025 11:54 AM EDT [facility] at 1154 EDT Gross Description A. Large Intestine, Left/Descendi ng Colon, polyp x1: Labeled polyp x 1 desc colon . Received in formalin is a soft, lundy-red, 0.35 cm in greatest diameter polypoid tissue which is inked green at the base, wrapped in paper and submitted in toto in one cassette, one piece, multiple levels. TS 09/14/2025 11:54 AM EDT [facility] Disclaimer Unless otherwise specified, all tissue is 10% NB formalin fixed and paraffin embedded. 09/14/2025 11:54 AM EDT [facility] Tissue Descending colon structure / Unknown 09/13/2025 1:14 PM EDT 09/13/2025 1:53 PM EDT us Nedra Cavazos MD LAB PATHOLOGY ORDERABLES Fi nal Result [facility] [address] [place] [address], * (ABNORMAL) Basic metabolic panel (06/30/2025 11:09 AM EDT) Sodium 130(L) 133 - 145 mmol/L LAB CHEMISTRY METHOD 06/30/2025 2:26 PM [facility] Potassium 3.2(L) 3.5 - 5.5 mmol/L LAB CHEMISTRY METHOD 06/30/2025 2:26 PM [facility] Chloride 92(L) 96 - 110 mmol/L LAB CHEMISTRY METHOD 06/30/2025 2:26 PM [facility] CO2 31 21 - 32 mmol/L LAB CHEMISTRY METHOD 06/30/2025 2:26 PM [facility] Anion Gap 7 3 - 11 LAB CHEMISTRY METHOD 06/30/2025 2:26 PM [facility] Glucose 73 70 - 100 mg/dL LAB CHEMISTRY METHOD 06/30/2025 2:26 PM [facility] BUN 11 5 - 25 mg/dL LAB CHEMISTRY METHOD 06/30/2025 2:26 PM [facility] Creatinine 1.14 0.70 - 1.30 mg/dL LAB CHEMISTRY METHOD 06/30/2025 2:26 PM [facility] eGFR 68 >=60 mL/min/1. 73m2 LAB CHEMISTRY METHOD 06/30/2025 2:26 PM [facility] Comment:Calculation based on the Chronic Kidney Disease Epidemiology Collaboration (CKD-EPI) equation refit without adjustment for race. BUN/Creatinine Ratio 9.6 LAB CHEMISTRY METHOD 06/30/2025 2:26 PM [facility] Calcium 9.7 8.5 - 10.5 mg/dL LAB CHEMISTRY METHOD 06/30/2025 2:26 PM EDT [facility] Blood Venous blood specimen / Unknown Venipuncture / Unknown 06/30/2025 11:09 AM EDT 06/30/2025 11:09 AM EDT us Enrique Diaz MD LAB BLOOD ORDERABLES Final Resu lt [facility] [address] [place] [address], [place] [phone] * (ABNORMAL) Lipid panel with reflex to direct LDL (06/29/2025 1:30 PM EDT) Cholesterol 211(H) 0 - 200 mg/dL LAB CHEMISTRY METHOD 06/29/2025 5:16 PM EDT [facility] Triglycerides 233(H) 0 - 150 mg/dL LAB CHEMISTRY METHOD 06/29/2025 5:16 PM EDT [facility] HDL 57 >=40 mg/dL LAB CHEMISTRY METHOD 06/29/2025 5:16 PM EDT [facility] LDL Calculated 107(H) 0 - 100 mg/dL LAB CHEMISTRY METHOD 06/29/2025 5:16 PM EDT [facility] Comment:Estimated LDL Calcul ated using equation: Total cholesterol - HDL cholesterol - (Triglycerides/5) VLDL Cholesterol Fam 46.6 mg/dL LAB CHEMISTRY METHOD 06/29/2025 5:16 PM EDT [facility] Non HDL Chol. (LDL+VLDL) 154(H) <145 mg/dL LAB CHEMISTRY METHOD 06/29/2025 5:16 PM EDT [facility] Chol/HDL Ratio 3.7 0.0 - 4.4 LAB CHEMISTRY METHOD 06/29/2025 5:16 PM [facility] Blood Venous blood specimen / Unknown Venipuncture / Unknown 06/29/2025 1:30 PM EDT 06/29/2025 1:30 PM EDT us Enrique Diaz MD LAB BLOOD ORDERABLES Final Resu lt [facility] [address] [place] [address], [place] [phone] * (ABNORMAL) Comprehensive metabolic panel (06/29/2025 1:30 PM EDT) Sodium 130(L) 133 - 145 mmol/L LAB CHEMISTRY METHOD 06/29/2025 5:16 PM EDT [facility] Potassium 3.4(L) 3.5 - 5.5 mmol/L LAB CHEMISTRY METHOD 06/29/2025 5:16 PM [facility] Chloride 90(L) 96 - 110 mmol/L LAB CHEMISTRY METHOD 06/29/2025 5:16 PM [facility] CO2 34(H) 21 - 32 mmol/L LAB CHEMISTRY METHOD 06/29[facility]25 [facility] Anion Gap 6 3 - 11 LAB CHEMISTRY METHOD 06/29/2025 5:16 PM T [facility] Glucose 89 70 - 100 mg/dL LAB CHEMISTRY METHOD 06/29/2025 5:16 PM [facility] BUN 12 5 - 25 mg/dL LAB CHEMISTRY METHOD 06/29/2025 5:16 PM T [facility] Creatinine 0.98 0.70 - 1.30 mg/dL LAB CHEMISTRY METHOD 06/29/2025 5:16 PM [facility] eGFR 82 >=60 mL/min/1. 73m2 LAB CHEMISTRY METHOD 06/29/2025 5:16 PM EDT [facility] Comment:Calculation based on the Chronic Kidney Disease Epidemiology Collaboration (CKD-EPI) equation refit without adjustment for race. BUN/Creatinine Ratio 12.2 LAB CHEMISTRY METHOD 06/29/2025 5:16 PM T [facility] Calcium 9.7 8.5 - 10.5 mg/dL LAB CHEMISTRY METHOD 06/29/2025 5:16 PM EDT [facility] AST (SGOT) 20 10 - 42 unit/L LAB CHEMISTRY METHOD 06/29/2025 5:16 PM EDT [facility] ALT (SGPT) 27 10 - 60 unit/L LAB CHEMISTRY METHOD 06/29/2025 5:16 PM EDT [facility] Alkaline Phosphatase 78 42 - 121 unit/L LAB CHEMISTRY METHOD 06/29/2025 5:16 PM EDT [facility] Total Protein 6.8 6.0 - 8.0 g/dL LAB CHEMISTRY METHOD 06/29/2025 5:16 PM T [facility] Albumin 4.3 3.2 - 5.0 g/dL LAB CHEMISTRY METHOD 06/29/2025 5:16 PM EDT [facility] Total Bilirubin 0.4 0.0 - 1.4 mg/dL LAB CHEMISTRY METHOD 06/29/2025 5:16 PM EDT [facility] Blood Venous blood specimen / Unknown Venipuncture / Unknown 06/29/2025 1:30 PM EDT 06/29/2025 1:30 PM EDT Enrique Diaz MD LAB BLOOD ORDERABLES Final Resu lt [facility] [address] [place] [address], * Depression Screening (06/16/2024) Pathologist [facility] Depression Screening Abstracted Historical Provider HEALTH MAINTENANCE Final Result * Hepatitis C Screening (12/31/2013) Pathologist [facility] Hepatitis C Screening Abstracted Historical Ramez BANUELOS HEALTH MAINTENANCE Final Result from Last 3 Months or Most Recently Relevant to Health Maintenance Additional Health Concerns Active Problems Noted Date Diagnosed Date Autogenerated Problem 08/15/2025 Insurance MEDICAID - [place] MEDICARE Care Teams Business Lawyer Relationship Specialty Start Date End Date Enrique Daiz MD [address] [place] [phone] PCP - General Internal Medicine 09/28/15
--- OUTSIDE RECORDS SUMMARY | 2025-09-28 11:14 | XMS_ITS | Encounter Summary ---
Author Organization [facility] Address [address] [place] [address] Care Team Providers Care Slab Stripper Name Role Phone Name, Darryl BANUELOS Primary Care Provider Enrique Grijalva MD Primary Care Provider Encounter Details Date Type Department Care Team Description 10/17/2014 Staff Cytotechnologist Report Medical Records [address] [place] [id number] Osiel Cross MD Social History Tobacco Use [...] on filedocumented in this encounter Care Teams Slab Stripper Relationship Specialty Start Date End Date Name, MD Darryl PCP - General 08/06/11 09/27/15 Enrique Diaz MD [address] [place] [phone] PCP - General Internal Medicine 09/28/15 documented as of this encounter
--- OUTSIDE RECORDS SUMMARY | 2025-09-28 11:14 | XMS_ITS | Encounter Summary ---
Author Organization [facility] Address [address] [place] [address] Care Team Providers Care Hacksaw Inspector Name Role Phone Enrique Diaz MD Primary Care Provider [phone] Encounter Details Date Type Department Care Team Description 07/16/2017 Drill Press Operator Report Medical Records [address] [place] [address] Jovon Bruce MD Social History Tobacco Use [...] on filedocumented in this encounter Care Teams Hacksaw Inspector Relationship Specialty Start Date End Date Enrique Diaz MD [address] [place], [place] [phone] PCP - General Internal Medicine 09/28/15 documented as of this encounter
--- OUTSIDE RECORDS SUMMARY | 2025-09-28 11:14 | XMS_ITS | Encounter Summary ---
Author Organization [facility] Address [address] [place] [address] Care Team Providers Care Supervisor Refractory Products Name Role Phone Name, Darryl BANUELOS Primary Care Provider Enrique Grijalva MD Primary Care Provider [phone] Encounter Details Date Type Department Care Team Description 10/09/2014 Blood Tester Report Medical Records [address] [place] [id number] Johnathan Martinez MD Social History Tobacco Use [...] filedocumented in this encounter Care Teams Supervisor Refractory Products Relationship Specialty Start Date End Date Name, MD Darryl PCP - General 08/06/11 09/27/15 Enrique Diaz MD [address] [place] [phone] PCP - General Internal Medicine 09/28/15 documented as of this encounter
--- OUTSIDE RECORDS SUMMARY | 2025-09-28 11:14 | XMS_ITS | Encounter Summary ---
Author Organization [facility] Address [address] [place] [address] Care Team Providers Care Floral Arranger Name Role Phone Enrique Diaz MD Primary Care Provider [phone] Encounter Details Date Type Department Care Team Description 10/13/2022 Senior Oracle Database Developer Report Medical Records [address] [place] [address] [facility] Cardiovascular [address] [place] [id number] Social History Tobacco Use Types Packs/Day Years [...] on filedocumented in this encounter Care Teams Floral Arranger Relationship Specialty Start Date End Date Enrique Diaz MD [address] [place] [address] PCP - General Internal Medicine 09/28/15 documented as of this encounter
--- OUTSIDE RECORDS SUMMARY | 2025-09-28 11:14 | XMS_ITS | Encounter Summary ---
Author Organization [facility] Address [address] [place] [address] Care Team Providers Care Crusher And Blender Operator Name Role Phone Unavailable Primary Care [...]
--- OUTSIDE RECORDS SUMMARY | 2025-09-28 11:14 | XMS_ITS | Encounter Summary ---
Author Organization [facility] Address [address] [place] [address] Care Team Providers Care Front End Alignment Specialist Name Role Phone Enrique Diaz MD Primary Care Provider [phone] Encounter Details Date Type Department Care Team Description 02/04/2023 Orders Only Adult Medicine [address] [phone] Enrique Diaz MD [address] [place] [address] [phone] Preoperative examination; Screening for deficiency anemia Social History Tobacco Use Types Packs/Day Years [...] on file documented as of this encounter Results * (ABNORMAL) CHG BASIC METABOLIC PANEL CALCIUM TOTAL (03/12/2023 10:30 AM EDT) GLUCOSE 91 70 - 100 mg/dL 03/12/2023 3:31 PM EDT [facility] Comment:Reference range appl icable to fasting specimens only Blood Urea Nitrogen 12 5 - 25 mg/dL 03/12/2023 3:31 PM EDT [facility] CREAT 1.20 0.7 - 1.3 mg/dL 03/12/2023 3:31 PM EDT [facility] GLOMERULAR FILTRATION RATE 65 >60 03/12/2023 3:31 PM EDT [facility] Comment: This eGFR result was calculated using the CKD-EPI 2020 Creatinine Equation NA 128(L) 135 - 145 mEq/L 03/12/2023 3:31 PM EDT [facility] K 3.3(L) 3.5 - 5.5 mmol/L 03/12/2023 3:31 PM EDT [facility] CL 92(L) 96 - 110 mmol/L 03/12/2023 3:31 PM EDT [facility] CARBON DIOXIDE (CO2) 30 21 - 32 mmol/L 03/12/2023 3:31 PM EDT [facility] ANION GAP 6 3 - 11 03/12/2023 3:31 PM EDT [facility] CALCIUM 9.8 8.5 - 10.5 mg/dL 03/12/2023 3:31 PM EDT [facility] 03/12/2023 10:3 0 AM EDT 03/12/2023 10:30 AM EDT Narrative [facility] - 03/12/2023 3:31 PM EDT Release to patient->Immediate Enrique Diaz MD LAB [facility] * (ABNORMAL) CHG BLOOD COUNT COMPLETE AUTO&AUTO DIFRNTL WBC (03/12/2023 10:30 AM EDT) WHITE BLOOD COUNT 6.1 4.8 - 10.8 x10-3/uL 03/12/2023 3:32 PM EDT [facility] RED BLOOD COUNT 4.4(L) 4.5 - 5.5 x10-6/uL 03/12/2023 3:32 PM EDT [facility] Hemoglobin 13.3(L) 13.5 - 17.5 g/dL 03/12/2023 3:32 PM EDT [facility] Hematocrit 39.0(L) 42 - 54 % 03/12/2023 3:32 PM EDT [facility] MEAN CORPUSCULAR VOLUME 87.8 79 - 98 fL 03/12/2023 3:32 PM EDT [facility] CORPUSCULAR HEMOGLOBIN 30.0 27 - 32 pg 03/12/2023 3:32 PM EDT [facility] ME[facility] CORPUSCULAR HGB CONC 34.1 32 - 37 g/dL 03/12/2023 3:32 PM EDT [facility] RED CELL DISTRIBUTION WIDTH 12.7 11 - 15 % 03/12/2023 3:32 PM EDT [facility] PLT COUNT 262 130 - 400 x10-3/uL 03/12/2023 3:32 PM EDT [facility] MEAN PLATELET VOLUME 10.9 7 - 11 fL 03/12/2023 3:32 PM EDT [facility] NRBC % AUTO 0.0 <1 % 03/12/2023 3:32 PM EDT [facility] NEUTROPHILS % 52.7 % 03/12/2023 3:32 PM EDT [facility] LYMPH % 35.9 % 03/12/2023 3:32 PM EDT [facility] MONO % 9.5 % 03/12/2023 3:32 PM EDT [facility] EOS % 1.0 % 03/12/2023 3:32 PM EDT [facility] BASO % 0.7 % 03/12/2023 3:32 PM EDT [facility] IMMATURE GRANULOCYTES % 0.2 % 03/12/2023 3:32 PM EDT [facility] NRBC # AUTO 0.00 <0.1 x10-3/uL 03/12/2023 3:32 PM EDT [facility] NEUT # 3.24 1.5 - 7.0 x10-3/uL 03/12/2023 3:32 PM EDT [facility] LYMPH # 2.20 1 - 5.0 x10-3/uL 03/12/2023 3:32 PM EDT [facility] MONO # 0.58 0.2 - 1.0 x10-3/uL 03/12/2023 3:32 PM EDT [facility] EOS # 0.06 0 - 0.5 x10-3/uL 03/12/2023 3:32 PM EDT [facility] BASO # 0.04 0 - 0.2 x10-3/uL 03/12/2023 3:32 PM EDT [facility] IMMATURE GRANULOCYTES # 0.01 0 - 0.03 x10-3/uL 03/12/2023 3:32 PM EDT [facility] 03/12/2023 10:3 0 AM EDT 03/12/2023 10:30 AM EDT Narrative [facility] - 03/12/2023 3:32 PM EDT Release to patient->Immediate Enrique Diaz MD LAB [facility] documented in this encounter Visit Diagnoses Diagnosis Preoperative examination Preoperative examination, unspecified Screening for deficiency anemia Screening for other and unspecified deficiency anemia Preoperative examination Preoperative examination, unspecified Screening for deficiency anemia Screening for other and unspecified deficiency anemia documented in this encounter Care Teams Front End Alignment Specialist Relationship Specialty Start Date End Date Enrique Diaz MD [address] [place] [id number] PCP - General Internal Medicine 09/28/15 documented as of this encounter
--- OUTSIDE RECORDS SUMMARY | 2025-09-28 11:15 | XMS_ITS | Encounter Summary ---
Author Organization [facility] Address [address] [place] [address] Care Team Providers Care Chemical Treatment Plant Technician Name Role Phone Enrique Diaz MD Primary Care Provider [phone] Encounter Details Date Type Department Care Team Description 11/30/2015 Java Android Developer Report Medical Records [address] [place] [address] Aleksandr Sanchez Social History Tobacco Use Types [...] on filedocumented in this encounter Care Teams Chemical Treatment Plant Technician Relationship Specialty Start Date End Date Enrique Diaz MD [address] [place], [place] [phone] PCP - General Internal Medicine 09/28/15 documented as of this encounter
--- OUTSIDE RECORDS SUMMARY | 2025-09-28 11:15 | XMS_ITS | Encounter Summary ---
Author Organization [facility] Address [address] [place] [address] Care Team Providers Care Football Scout Name Role Phone Name, Darryl BANUELOS Primary Care Provider [facility] Len Parisi MD Primary Care Provider [phone] Enrique Diaz MD Primary Care Provider [phone] Encounter Details Date Type Department Care Team Description 07/12/2010 Hospital Medical Records [address] [place] [id number] Shea Jay Social History Tobacco Use Types Packs/Day Years [...] on filedocumented in this encounter Care Teams Football Scout Relationship Specialty Start Date End Date Name, MD Darryl PCP - General 08/06/11 09/27/15 Len Parisi MD [address] [place] [address] [phone] PCP - General 06/27/10 08/05/11 Enrique Diaz MD [address] [place] [address] [phone] PCP - General Internal Medicine 09/28/15 documented as of this encounter
[2025-09-28 11:36] LABS: Troponin-I High Sensitivity 10.7 ng/L (<3.5-35.0)
[2025-09-28 12:02] VITALS: BP 121/71; PULSE 76; RESP 16; TEMP 36.7; O2SAT 96
--- NOTE | 2025-09-28 12:22 | ECG_ITS ---
Test Reason : EPIGASTRIC PAIN Blood Pressure : */* mmHG Vent. Rate : 78 BPM Atrial Rate : 78 BPM P-R Int : 132 ms QRS Dur : 88 ms QT Int : 376 ms P-R-T Axes : 53 -6 10 degrees QTcB Int : 428 ms Normal sinus rhythm Normal ECG When compared with ECG of 27-Dec-2011 02:49, No significant change was found Referred By: Whitley Garcia Electronically Signed By: JIMY CANO MD
[2025-09-28] MEDS: iohexoL 350 MG/ML 100 ML INFUS..BTL IV (12:28)
[2025-09-28 12:39] LABS: Lipase 33 U/L (8-78); Magnesium 2.1 mg/dL (1.6-2.6)
[2025-09-28 13:22] LABS: Anion Gap 10 (12-20); Blood Urea Nitrogen 12 mg/dL (9-16); Calcium 8.5 mg/dL (8.4-10.2); Carbon Dioxide 31 mmol/L (22-29); Chloride 99 mmol/L (96-108); Creatinine Clr Calc Pharmacy 66.9; Estimated Glomerular Filt Rate > 60; Potassium 3.0 mmol/L (3.3-5.1); Sodium 137 mmol/L (135-145)
[2025-09-28 13:32] LABS: Troponin-I High Sensitivity 10.3 ng/L (<3.5-35.0)
[2025-09-28 14:19] VITALS: BP 116/76; PULSE 71; RESP 14; TEMP 36.1; O2SAT 97
[2025-09-28 14:29] VITALS: BP 116/76; PULSE 71; RESP 14; TEMP 36.1; O2SAT 97
== END 2025-09-28 14:47 | disposition home or self-care (01) ==
PROVIDERS: Physician Assistant; Emergency Provider Emergency Medicine; PCP Internal Medicine
DX: R10.13 Epigastric pain (principal); E87.6 Hypokalemia; R11.0 Nausea; Z79.899 Other long term (current) drug therapy
CPT/HCPCS: 36415; 74177; 80048; 80053; 81003; 82248; 83690; 83735; 84484; 85025; 93005; 96361; 96374; 96375; 99285; J1308; J2270; Q9967

== ENCOUNTER → 2025-09-28 11:48 | Outpatient (BNV) | payer MEDICARE, MEDICAID, SELFPAY | PROVIDERS: Emergency Provider Emergency Medicine; PCP Internal Medicine; Visit Provider Radiology Diagnostic Ultrasound | DX: R10.10 Upper abdominal pain, unspecified (principal); R11.0 Nausea | CPT/HCPCS: 74177 ==

== ENCOUNTER → 2025-09-28 12:22 | Outpatient (BNV) | payer MEDICARE, MEDICAID, SELFPAY | PROVIDERS: Emergency Provider Emergency Medicine; PCP Internal Medicine; Visit Provider Internal Medicine Cardiovascular Disease | DX: R10.13 Epigastric pain (principal) | CPT/HCPCS: 93010 ==